=== PATIENT | male | born 1955 | race American Indian/Alaskan Native ===

== ENCOUNTER 2016-07-21 13:26 | Emergency (ER) | payer MEDICAID ==
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
[2016-07-21] MEDS ORDERED: NORCO 5/325 PO ONE (19:27)
[2016-07-21 19:56] VITALS: BP 173/86
== END 2016-07-21 19:55 | disposition home or self-care (01) ==
LOC: ED 13:26
DX: K02.9 Dental caries, unspecified (principal); K05.20 Aggressive periodontitis, unspecified; G43.909 Migraine, unspecified, not intractable, without status migrainosus; F17.200 Nicotine dependence, unspecified, uncomplicated
CPT/HCPCS: 99282

== ENCOUNTER 2018-03-03 13:42 | Inpatient (IN) | payer MEDICAID ==
[2018-03-03 14:45] LABS: Basophils % (Auto) 0.6 % (0.0-1.8); Eosinophils # (Auto) 0.1 K/mm3 (0.0-0.4); Eosinophils % (Auto) 1.4 % (0.0-4.3); Hemoglobin 15.5 gm/dl (11.8-15.2); Lymphocytes # (Auto) 1.9 K/mm3 (1.2-5.4); Lymphocytes % (Auto) 38.6 % (13.4-35.0); Mean Corpuscular HGB Conc 33 % (32-34); Mean Corpuscular Volume 89 fl (84-94); Monocytes # (Auto) 0.4 K/mm3 (0.0-0.8); Monocytes % (Auto) 7.5 % (0.0-7.3); Platelet Count 206 K/mm3 (140-440); Red Blood Count 5.28 M/mm3 (3.65-5.03); Red Cell Distribution Width 15.4 % (13.2-15.2)
[2018-03-03] MEDS ORDERED: ZOFRAN IV ONE (15:50)
[2018-03-03] MEDS ORDERED: ASPIRIN PO ONE (15:50)
[2018-03-03] MEDS ORDERED: MORPHINE IV ONE (15:50)
[2018-03-03 16:14] LABS: BUN/Creatinine Ratio 15; Blood Urea Nitrogen 16 mg/dL (9-20); Calcium 8.6 mg/dL (8.4-10.2); Hemolysis Index 19
[2018-03-03] MEDS ORDERED: LASIX IV ONE (17:06)
--- NOTE | 2018-03-03 17:19 | XRay Report ---
FINAL REPORT EXAM: XR CHEST 1V AP HISTORY: cp, sob, hx of chf TECHNIQUE: upright single view chest PRIORS: Comparison is dated December 31, 2017 FINDINGS: Cardiac and mediastinal contours are unremarkable. No focal pulmonary infiltrate is identified. No pleural fluid collection seen. Pulmonary vasculature is unremarkable. IMPRESSION: Negative single-view chest
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
--- NOTE | 2018-03-03 17:54 | History and Physical Report ---
History of Present Illness Chief complaint: I have chest pain History of present illness: 63 YO Male with Systolic CHF(EF 10%), HTN, Obesity, Migraine GARCÍA, BPH presents to ED for evaluation. Pt states that he has experienced pain in his chest for the past 2 days with worsening symptoms since onset. Pt states that pain is 8/10, sharp, substernal, constant, improved with nitro, not worsened with exertion, not relieved with rest. Pt acknowledges Orthopnea/PND, shortness of breath, and decreased exercise tolerance. Pt seen and evaluated in ED and found to have symptoms consistent with ACS as well as CHF Decompensation. Pt denies fever, chills, palpitations, NVD, Syncope, Trauma, prolonged travel/immobility, unilat eral leg swelling, calf pain, individual/family history of DVT/PE, unintentional weight loss, night sweats, productive cough, recent ill contacts, or skin rash. Pt admitted to telemetry. Cardiology team consulted in ED. Past History Past Medical History: heart failure, hypertension, migraines Past Surgical History: hernia repair, bowel surgery Social history: single Family history: hypertension Medications and Allergies Allergies Allergy/AdvReac Type Severity Reaction Status Date / Time No Known Allergies Allergy Verified 01/09/14 03:24 Home Medications Medication Instructions Recorded Confirmed Last Taken Type Acetaminophen/Codeine [Tylenol 1 tab PO Q8H PRN #14 tablet 09/14/17 12/31/17 Unknown Rx /Codeine # 3 tab] Benzocaine [Orajel Liquid 20%] 1 applic MM Q6H PRN bottle 09/14/17 12/31/17 Unknown Rx Chlorhexidine Mouthwash [Peridex] 118 ml MM BID bottle 09/14/17 12/31/17 Unknown Rx Famotidine [Pepcid] 20 mg PO BID #60 tablet 09/14/17 12/31/17 Unknown Rx HYDROcodone/APAP 7.5-325 [[place] 1 each PO Q4-6H PRN #14 tablet 09/14/17 12/31/17 Unknown Rx 7.5-325 mg TAB] Lisinopril [Zestril TAB] 2.5 mg PO QDAY #30 tablet 09/14/17 12/31/17 Unknown Rx Promethazine [Phenergan TAB] 25 mg PO Q6H PRN tablet 09/14/17 12/31/17 Unknown Rx Tamsulosin [Flomax] 0.4 mg PO QDAY #30 capsule 09/14/17 12/31/17 Unknown Rx Aspirin [Aspirin TAB] 325 mg PO QDAY #30 tablet 01/03/18 Unknown Rx AtorvaSTATin [Lipitor] 40 mg PO QHS #30 tablet 01/03/18 Unknown Rx Carvedilol [Coreg] 3.125 mg PO BID #60 tablet 01/03/18 Unknown Rx Furosemide [Lasix TAB] 40 mg PO QDAY #30 tablet 01/03/18 Unknown Rx Review of Systems Constitutional: no weight loss, no weight gain, no fever, no chills Ears, nose, mouth and throat: no ear pain, no ear discharge, no tinnitis, no decreased hearing, no nose pain Cardiovascular: chest pain, orthopnea, dyspnea on exertion, paroxysmal nocturnal dyspnea, decreased exercise tolerance, no palpitations Respiratory: no cough, no excessive sputum, no hemoptysis, no shortness of breath Gastrointestinal: no nausea, no vomiting, no constipation Genitourinary Male: no hematuria, no flank pain, no discharge, no urinary frequency, no urinary hesitancy, no nocturia Rectal: no pain, no incontinence, no bleeding Musculoskeletal: no neck stiffness, no neck pain, no shooting arm pain, no low back pain, no shooting leg pain Integumentary: no rash, no pruritis, no redness, no sores, no wounds Neurological: no transient paralysis, no paralysis, no weakness, no parathesias, no numbness Psychiatric: no anxiety, no memory loss, no change in sleep habits, no sleep disturbances, no hypersomnia, no change in libido Endocrine: no cold intolerance, no heat intolerance, no polyphagia, no excessive thirst, no polyuria, no nocturia Hematologic/Lymphatic: no easy bruising, no easy bleeding, no lymphadenopathy, no lymphedema Allergic/Immunologic: no urticaria, no allergic rhinitis, no wheezing, no persistent infections, no anaphylaxis, no angioedema Exam - Constitutional Vitals: Temp Pulse Resp BP Pulse Ox 97.8 F 75 18 133/93 96 03/03/18 17:31 03/03/18 17:31 03/03/18 17:33 03/03/18 17:31 03/03/18 17:33 General appearance: Present: mild distress, obese - EENT Eyes: Present: PERRL ENT: hearing intact, clear oral mucosa - Neck Neck: Present: supple, normal ROM - Respiratory Respiratory effort: normal Respiratory: bilateral: CTA - Cardiovascular Heart Sounds: Present: S1 & S2. Absent: rub, click - Extremities Extremities: pulses symmetrical, No edema Peripheral Pulses: within normal limits - Abdominal General gastrointestinal: Present: soft, non-tender, non-distended, normal bowel sounds Male genitourinary: Present: normal - Integumentary Integumentary: Present: clear, warm, dry - Musculoskeletal Musculoskeletal: gait normal, strength equal bilaterally - Psychiatric Psychiatric: appropriate mood/affect, intact judgment & insight - Neurologic Neurologic: CNII-XII intact, moves all extremities Results - Labs CBC & Chem 7: 03/03/18 14:32 03/03/18 14:32 Labs: Abnormal lab results 03/03/18 03/03/18 Range/Units 14:32 14:32 RBC 5.28 H (3.65-5.03) M/mm3 Hgb 15.5 H (11.8-15.2) gm/dl Hct 47.0 H (35.5-45.6) % RDW 15.4 H (13.2-15.2) % Lymph % (Auto) 38.6 H (13.4-35.0) % [place] % (Auto) 7.5 H (0.0-7.3) % Chloride 107.9 H (98-107) mmol/L Carbon Dioxide 20 L (22-30) mmol/L Glucose 130 H (75-100) mg/dL Assessment and Plan - Patient Problems (1) CHF (congestive heart failure) Current Visit: Yes Status: Acute Qualifiers: Heart failure chronicity: acute Plan to address problem: Admit to telemetry: Cardiology consulted in ED, Strict I/O, daily weight, monitor uop q shift, BNP, d dimer, chest x ray, (2) ACS (acute coronary syndrome) Current Visit: No Status: Acute Plan to address problem: Admit to telemetry, serial cardiac enzymes, ekg, telemetry, morphine, supplemental oxygen, nitro, aspirin (3) Migraine headache Current Visit: No Status: Acute Qualifiers: Intractability: not intractable Plan to address problem: pain control, supportive care. (4) DVT prophylaxis Current Visit: No Status: Acute Plan to address problem: SCD to BLE while in bed.
[2018-03-03] MEDS ORDERED: ZOFRAN IV PRN (18:07)
[2018-03-03] MEDS ORDERED: MORPHINE IV PRN (18:07)
[2018-03-03] MEDS ORDERED: PROVENTIL IH PRN (18:07)
[2018-03-03] MEDS ORDERED: SODIUM CHLORIDE FLUSH SYRINGE 10 ML IV PRN (18:07)
[2018-03-03] MEDS: SODIUM CHLORIDE FLUSH SYRINGE 10 ML IV SCH (21:44)
[2018-03-03] MEDS: PEPCID PO SCH (21:44)
[2018-03-04 05:49] LABS: BUN/Creatinine Ratio 15; Blood Urea Nitrogen 16 mg/dL (9-20); Calcium 8.3 mg/dL (8.4-10.2); Hemolysis Index 32
[2018-03-04] MEDS: SODIUM CHLORIDE FLUSH SYRINGE 10 ML IV SCH ×2 (09:59→22:58)
[2018-03-04] MEDS: PEPCID PO SCH ×2 (09:59→22:57)
--- NOTE | 2018-03-04 11:11 | Progress Note ---
Assessment and Plan Assessment and plan: Acute on chronic systolic heart failure exacerbation. Cardiology consultation. Continue Lasix daily. Follow serial chest x-ray. Check BNP. Follow-up echocardiogram. Acute coronary syndrome/CP. Await cardiology recommendations for ischemic evaluation. Continue aspirin. Troponins are negative 3. Hypertension. Resume antihypertensive medications. Elevated d-dimer. Check CTA of chest. History Migraine headache. History of BPH. History Interval history: 63 YO Male with Systolic CHF(EF 10%), HTN, Obesity, Migraine GARCÍA, BPH presents to ED for evaluation. Pt states that he has experienced pain in his chest for the past 2 days with worsening symptoms since onset. Pt states that pain is 8/10, sharp, substernal, constant, improved with nitro, not worsened with exertion, not relieved with rest. Pt acknowledges Orthopnea/PND, shortness of breath, and decreased exercise tolerance. Pt seen and evaluated in ED and found to have symptoms consistent with ACS as well as CHF Decompensation No new issues overnight. Hospitalist Physical - Constitutional Vitals: Temp Pulse Resp BP Pulse Ox 98.1 F 71 18 117/86 99 03/04/18 08:57 03/04/18 08:57 03/04/18 08:57 03/04/18 08:57 03/04/18 09:39 General appearance: Present: no acute distress, obese - EENT Eyes: Present: PERRL, EOM intact ENT: hearing intact, clear oral mucosa, dentition normal - Neck Neck: Present: supple, normal ROM - Respiratory Respiratory effort: normal Respiratory: bilateral: CTA - Cardiovascular Rhythm: regular Heart Sounds: Present: S1 & S2. Absent: gallop, rub - Extremities Extremities: no ischemia, No edema, Full ROM - Abdominal General gastrointestinal: soft, non-tender, non-distended, normal bowel sounds - Integumentary Integumentary: Present: clear, warm, dry - Neurologic Neurologic: CNII-XII intact, moves all extremities Results - Labs CBC & Chem 7: 03/03/18 14:32 03/04/18 04:50 Labs: Laboratory Last Values WBC 4.9 K/mm3 (4.5-11.0) 03/03/18 14:32 RBC 5.28 M/mm3 (3.65-5.03) H 03/03/18 14:32 Hgb 15.5 gm/dl (11.8-15.2) H 03/03/18 14:32 Hct 47.0 % (35.5-45.6) H 03/03/18 14:32 MCV 89 fl (84-94) 03/03/18 14:32 MCH 29 pg (28-32) 03/03/18 14:32 MCHC 33 % (32-34) 03/03/18 14:32 RDW 15.4 % (13.2-15.2) H 03/03/18 14:32 Plt Count 206 K/mm3 (140-440) 03/03/18 14:32 Lymph % (Auto) 38.6 % (13.4-35.0) H 03/03/18 14:32 [place] % (Auto) 7.5 % (0.0-7.3) H 03/03/18 14:32 Eos % (Auto) 1.4 % (0.0-4.3) 03/03/18 14:32 Baso % (Auto) 0.6 % (0.0-1.8) 03/03/18 14:32 Lymph # 1.9 K/mm3 (1.2-5.4) 03/03/18 14:32 [place] # 0.4 K/mm3 (0.0-0.8) 03/03/18 14:32 Eos # 0.1 K/mm3 (0.0-0.4) 03/03/18 14:32 Baso # 0.0 K/mm3 (0.0-0.1) 03/03/18 14:32 Seg Neutrophils % 51.9 % (40.0-70.0) 03/03/18 14:32 Seg Neutrophils # 2.5 K/mm3 (1.8-7.7) 03/03/18 14:32 D-Dimer 327.62 ng/mlDDU (0-234) H 03/03/18 18:02 Sodium 141 mmol/L (137-145) 03/04/18 04:50 Potassium 4.2 mmol/L (3.6-5.0) 03/04/18 04:50 Chloride 107.2 mmol/L (98-107) H 03/04/18 04:50 Carbon Dioxide 23 mmol/L (22-30) 03/04/18 04:50 Anion Gap 15 mmol/L 03/04/18 04:50 BUN 16 mg/dL (9-20) 03/04/18 04:50 Creatinine 1.1 mg/dL (0.8-1.5) 03/04/18 04:50 Estimated GFR > 60 ml/min 03/04/18 04:50 BUN/Creatinine Ratio 15 % 03/04/18 04:50 Glucose 117 mg/dL (75-100) H 03/04/18 04:50 Calcium 8.3 mg/dL (8.4-10.2) L 03/04/18 04:50 Troponin T < 0.010 ng/mL (0.00-0.029) 03/03/18 20:20 NT-Pro-B Natriuret Pep 5377 pg/mL (0-900) H 03/03/18 17:18
--- NOTE | 2018-03-04 13:40 | Consultation ---
History of Present Illness Consult date: 03/04/18 Consult reason: chest pain History of present illness: 63-year-old man who presents to the hospital with complaints of chest pressure. 2 months ago, he underwent extensive cardiac ischemic workup including a cardiac catheterization. Cardiac catheterization, he was found with a severe dilated nonischemic cardiomyopathy, left ventricular ejection fraction reported at 10% on left ventricle angiography, and a 20-30% on echocardiography. There was small vessel branch disease of the diagonal branch of the LAD, recommended for medical therapy. Following his discharge 2 months ago, the patient has been poorly compliant with outpatient follow-up visits, and admits to dietary salt indiscretion. ECG on this presentation is normal sinus rhythm, left ventricular hypertrophy with nonspecific ST and T-wave abnormalities. Chest x-ray reveals no evidence of significant interstitial edema. Past History Past Medical History: heart failure, hypertension, migraines Past Surgical History: hernia repair, bowel surgery Social history: single Family history: hypertension Medications and Allergies Allergies Allergy/AdvReac Type Severity Reaction Status Date / Time No Known Allergies Allergy Verified 01/09/14 03:24 Home Medications Medication Instructions Recorded Confirmed Last Taken Type Acetaminophen/Codeine [Tylenol 1 tab PO Q8H PRN #14 tablet 09/14/17 03/03/18 Unknown Rx /Codeine # 3 tab] Benzocaine [Orajel Liquid 20%] 1 applic MM Q6H PRN bottle 09/14/17 03/03/18 Unknown Rx Chlorhexidine Mouthwash [Peridex] 118 ml MM BID bottle 09/14/17 03/03/18 Unknown Rx Famotidine [Pepcid] 20 mg PO BID #60 tablet 09/14/17 03/03/18 Unknown Rx HYDROcodone/APAP 7.5-325 [[place] 1 each PO Q4-6H PRN #14 tablet 09/14/17 03/03/18 Unknown Rx 7.5-325 mg TAB] Lisinopril [Zestril TAB] 2.5 mg PO QDAY #30 tablet 09/14/17 03/03/18 Unknown Rx Promethazine [Phenergan TAB] 25 mg PO Q6H PRN tablet 09/14/17 03/03/18 Unknown Rx Tamsulosin [Flomax] 0.4 mg PO QDAY #30 capsule 09/14/17 03/03/18 Unknown Rx Aspirin [Aspirin TAB] 325 mg PO QDAY #30 tablet 01/03/18 03/03/18 Unknown Rx AtorvaSTATin [Lipitor] 40 mg PO QHS #30 tablet 01/03/18 03/03/18 Unknown Rx Carvedilol [Coreg] 3.125 mg PO BID #60 tablet 01/03/18 03/03/18 Unknown Rx Furosemide [Lasix TAB] 40 mg PO QDAY #30 tablet 01/03/18 03/03/18 Unknown Rx Active Meds: Active Medications Acetaminophen (Tylenol) 650 mg PO Q4H PRN PRN Reason: Pain MILD(1-3)/Fever >100.5/GARCÍA Albuterol (Proventil) 2.5 mg IH Q4HRT PRN PRN Reason: Shortness Of Breath Famotidine (Pepcid) [address] [facility] Last Admin: 03/04/18 09:59 Dose: 20 mg Documented by: Morphine Sulfate (Morphine) 2 mg IV Q4H PRN PRN Reason: Pain, Moderate (4-6) Ondansetron HCl (Zofran) 4 mg IV Q8H PRN PRN Reason: Nausea And Vomiting Sodium Chloride (Sodium Chloride Flush Syringe 10 Ml) [address] [facility] Last Admin: 03/04/18 09:59 Dose: 10 ml Documented by: Sodium Chloride (Sodium Chloride Flush Syringe 10 Ml) 10 ml IV PRN PRN PRN Reason: LINE FLUSH Review of Systems Cardiovascular: chest pain, orthopnea, edema, shortness of breath, no palpitations, no rapid/irregular heart beat, no syncope, no lightheadedness Physical Examination Vital Signs Temp Pulse Resp BP Pulse Ox 98.0 F 80 20 135/90 99 03/03/18 14:06 03/03/18 14:06 03/03/18 14:06 03/03/18 14:06 03/03/18 14:06 General appearance: no acute distress HEENT: Positive: PERRL Neck: Positive: neck supple Cardiac: Positive: Reg Rate and Rhythm Lungs: Positive: Decreased Breath Sounds Neuro: Positive: Grossly Intact Abdomen: Positive: Soft Male genitourinary: Positive: deferred Skin: Positive: Clear Extremities: Present: +1 Edema Results 03/03/18 14:32 03/04/18 04:50 CBC 03/03/18 Range/Units 14:32 WBC 4.9 (4.5-11.0) K/mm3 RBC 5.28 H (3.65-5.03) M/mm3 Hgb 15.5 H (11.8-15.2) gm/dl Hct 47.0 H (35.5-45.6) % Plt Count 206 (140-440) K/mm3 Lymph # 1.9 (1.2-5.4) K/mm3 [place] # 0.4 (0.0-0.8) K/mm3 Eos # 0.1 (0.0-0.4) K/mm3 Baso # 0.0 (0.0-0.1) K/mm3 Comprehensive Metabolic Panel 03/03/18 03/04/18 Range/Units 14:32 04:50 Sodium 141 141 (137-145) mmol/L Potassium 3.7 4.2 (3.6-5.0) mmol/L Chloride 107.9 H 107.2 H (98-107) mmol/L Carbon Dioxide 20 L 23 (22-30) mmol/L BUN 16 16 (9-20) mg/dL Creatinine 1.1 1.1 (0.8-1.5) mg/dL Glucose 130 H 117 H (75-100) mg/dL Calcium 8.6 8.3 L (8.4-10.2) mg/dL EKG interpretations - Telemetry EKG Rhythm: Sinus Rhythm Assessment and Plan - Patient Problems (1) Acute on chronic systolic (congestive) heart failure Current Visit: No Status: Acute Plan to address problem: Patient has a severe nonischemic cardiomyopathy, poor outpatient compliance, needs aggressive treatment for acute on chronic systolic heart failure. In addition to guidelines directed medical therapy, including afterload reducing agents, beta blockers and diuretics, he may benefit from a course of intravenous inotropic therapy.
--- NOTE | 2018-03-04 14:54 | Cat Scan Report ---
FINAL REPORT PROCEDURE: CT ANGIO CHEST TECHNIQUE: Computerized tomographic angiography of the chest was performed after the IV injection of iodinated nonionic contrast including image processing. The image data was postprocessed using 2-dim ensional multiplanar reformatted (MPR) and 3-dimensional (MIP and/or volume rendered) techniques. HISTORY: elevated d-dimer with CP COMPARISON: No prior studies are available for comparison. FINDINGS: Pulmonary outflow tract, right and left main pulmonary arteries and their proximal branches: Clear, n o filling defects seen to suggest pulmonary embolus. Pericardium: No evidence of pericardial effusion. Thoracic aorta: No evidence of aneurysmal dilatation or dissection. Coronary arteries: Are partially calcified indicating atherosclerotic disease. Mediastinum and hilar regions: Nonspecific subcentimeter lymph nodes are visualized. No pathologicall y enlarged lymph nodes or masses are identified. Lung [place]: Small to moderate size right pleural effusion and minimal left pleural effusion are visu alized. Adjacent to the effusions there is a small amount of patchy density suggesting atelectasis. N o dense consolidation is seen. No masses are detected. Minimal scattered emphysematous changes are pr esent. Upper abdomen: Low-density nodule projects from the upper 3rd of the renal cortex of the right kidney appears represent renal cortical cyst. There is contrast seen refluxing into the inferior vena cava and intrahepatic veins which is nonspecific although can be seen with congestive heart failure and tr icuspid insufficiency. Other: No acute bony abnormalities are seen. IMPRESSION: No evidence of pulmonary embolus. Small to moderate right pleural effusion, minimal left pleural effusion. Basilar atelectasis suspecte d. Contrast seen refluxing into the inferior vena cava and intrahepatic veins as described. This is nons pecific although can be seen with congestive heart failure and tricuspid insufficiency.
[2018-03-04] MEDS: MILRINONE-D5W 20 MG/100 ML 20 MG/100 ML BAG IV SCH ×2 (15:42→23:58)
[2018-03-04] MEDS: ZESTRIL PO SCH (15:48)
[2018-03-04] MEDS: IMDUR PO SCH (15:49)
[2018-03-04] MEDS: ALDACTONE PO SCH (15:49)
[2018-03-04] MEDS: HALFPRIN EC PO SCH (15:49)
[2018-03-04] MEDS: LASIX IV SCH (17:21)
[2018-03-04] MEDS: COREG PO SCH (22:57)
[2018-03-05 05:10] LABS: Basophils % (Auto) 0.5 % (0.0-1.8); Eosinophils # (Auto) 0.1 K/mm3 (0.0-0.4); Eosinophils % (Auto) 2.2 % (0.0-4.3); Hematocrit 44.6 % (35.5-45.6); Hemoglobin 14.7 gm/dl (11.8-15.2); Lymphocytes # (Auto) 1.6 K/mm3 (1.2-5.4); Lymphocytes % (Auto) 40.3 % (13.4-35.0); Mean Corpuscular HGB Conc 33 % (32-34); Mean Corpuscular Volume 90 fl (84-94); Monocytes # (Auto) 0.4 K/mm3 (0.0-0.8); Monocytes % (Auto) 9.5 % (0.0-7.3); Platelet Count 188 K/mm3 (140-440); Red Blood Count 4.98 M/mm3 (3.65-5.03); Red Cell Distribution Width 15.1 % (13.2-15.2)
[2018-03-05 05:21] LABS: BUN/Creatinine Ratio 13; Blood Urea Nitrogen 14 mg/dL (9-20); Calcium 8.5 mg/dL (8.4-10.2); Hemolysis Index 14
[2018-03-05] MEDS: LASIX IV SCH ×2 (05:27→20:37)
[2018-03-05] MEDS: MILRINONE-D5W 20 MG/100 ML 20 MG/100 ML BAG IV SCH ×2 (10:11→21:37)
[2018-03-05] MEDS: HALFPRIN EC PO SCH (10:27)
[2018-03-05] MEDS: ALDACTONE PO SCH (10:28)
[2018-03-05] MEDS: COREG PO SCH ×2 (10:28→21:36)
[2018-03-05] MEDS: IMDUR PO SCH (10:28)
[2018-03-05] MEDS: PEPCID PO SCH ×2 (10:29→21:36)
[2018-03-05] MEDS: ZESTRIL PO SCH (10:34)
[2018-03-05] MEDS: SODIUM CHLORIDE FLUSH SYRINGE 10 ML IV SCH ×2 (10:38→21:37)
--- NOTE | 2018-03-05 11:34 | Progress Note ---
Assessment and Plan Assessment and plan: Acute on chronic systolic heart failure exacerbation. Cardiology following. Continue milrinone drip and Lasix daily. Also, continue Coreg, isosorbide and Zestril. Follow serial chest x-ray. Follow-up echocardiogram. Nonischemic cardiomyopathy. As above. Hypertension. Continue antihypertensive medications. Elevated d-dimer. CTA of chest negative. History Migraine headache. History of BPH. History Interval history: 63 YO Male with Systolic CHF(EF 10%), HTN, Obesity, Migraine GARCÍA, BPH presents to ED for evaluation. Pt states that he has experienced pain in his chest for the past 2 days with worsening symptoms since onset. Pt states that pain is 8/10, sharp, substernal, constant, improved with nitro, not worsened with exertion, not relieved with rest. Pt acknowledges Orthopnea/PND, shortness of breath, and decreased exercise tolerance. Pt seen and evaluated in ED and found to have symptoms consistent with ACS as well as CHF Decompensation No new issues overnight. Hospitalist Physical - Constitutional Vitals: Temp Pulse Resp BP Pulse Ox 97.9 F 72 16 105/48 95 03/05/18 07:22 03/05/18 10:34 03/05/18 08:44 03/05/18 07:22 03/05/18 08:17 General appearance: Present: no acute distress - EENT Eyes: Present: PERRL, EOM intact ENT: hearing intact, clear oral mucosa, dentition normal - Neck Neck: Present: supple, normal ROM - Respiratory Respiratory effort: normal Respiratory: bilateral: CTA - Cardiovascular Rhythm: regular Heart Sounds: Present: S1 & S2. Absent: gallop, rub - Extremities Extremities: no ischemia, No edema, Full ROM - Abdominal General gastrointestinal: soft, non-tender, non-distended, normal bowel sounds - Integumentary Integumentary: Present: clear, warm, dry - Neurologic Neurologic: CNII-XII intact, moves all extremities Results - Labs CBC & Chem 7: 03/05/18 04:48 03/05/18 04:48 Labs: Laboratory Last Values WBC 4.0 K/mm3 (4.5-11.0) L 03/05/18 04:48 RBC 4.98 M/mm3 (3.65-5.03) 03/05/18 04:48 Hgb 14.7 gm/dl (11.8-15.2) 03/05/18 04:48 Hct 44.6 % (35.5-45.6) 03/05/18 04:48 MCV 90 fl (84-94) 03/05/18 04:48 MCH 30 pg (28-32) 03/05/18 04:48 MCHC 33 % (32-34) 03/05/18 04:48 RDW 15.1 % (13.2-15.2) 03/05/18 04:48 Plt Count 188 K/mm3 (140-440) 03/05/18 04:48 Lymph % (Auto) 40.3 % (13.4-35.0) H 03/05/18 04:48 [place] % (Auto) 9.5 % (0.0-7.3) H 03/05/18 04:48 Eos % (Auto) 2.2 % (0.0-4.3) 03/05/18 04:48 Baso % (Auto) 0.5 % (0.0-1.8) 03/05/18 04:48 Lymph # 1.6 K/mm3 (1.2-5.4) 03/05/18 04:48 [place] # 0.4 K/mm3 (0.0-0.8) 03/05/18 04:48 Eos # 0.1 K/mm3 (0.0-0.4) 03/05/18 04:48 Baso # 0.0 K/mm3 (0.0-0.1) 03/05/18 04:48 Seg Neutrophils % 47.5 % (40.0-70.0) 03/05/18 04:48 Seg Neutrophils # 1.9 K/mm3 (1.8-7.7) 03/05/18 04:48 D-Dimer 327.62 ng/mlDDU (0-234) H 03/03/18 18:02 Sodium 137 mmol/L (137-145) 03/05/18 04:48 Potassium 3.4 mmol/L (3.6-5.0) L 03/05/18 04:48 Chloride 101.7 mmol/L (98-107) 03/05/18 04:48 Carbon Dioxide 28 mmol/L (22-30) 03/05/18 04:48 Anion Gap 11 mmol/L 03/05/18 04:48 BUN 14 mg/dL (9-20) 03/05/18 04:48 Creatinine 1.1 mg/dL (0.8-1.5) 03/05/18 04:48 Estimated GFR > 60 ml/min 03/05/18 04:48 BUN/Creatinine Ratio 13 % 03/05/18 04:48 Glucose 93 mg/dL (75-100) 03/05/18 04:48 Calcium 8.5 mg/dL (8.4-10.2) 03/05/18 04:48 Troponin T < 0.010 ng/mL (0.00-0.029) 03/03/18 20:20 NT-Pro-B Natriuret Pep 5377 pg/mL (0-900) H 03/03/18 17:18
[2018-03-05] MEDS ORDERED: AFLURIA QUAD 2018-2019 SYRINGE IM ONE (12:00)
[2018-03-05] MEDS ORDERED: PNEUMOVAX 23 IM ONE (12:00)
--- NOTE | 2018-03-05 13:32 | Progress Note ---
Assessment and Plan - Patient Problems (1) Acute on chronic systolic (congestive) heart failure Current Visit: No Status: Acute Plan to address problem: Patient has a severe nonischemic cardiomyopathy, poor outpatient compliance, needs aggressive treatment for acute on chronic systolic heart failure. Symptoms improved with guideline directed medical therapy, including afterload reducing agents, beta blockers and diuretics, and a course of intravenous inotropic therapy. Subjective Date of service: 03/05/18 Interval history: Patient looks and feels better, no new cardiac complaints. Objective Vital Signs Temp Pulse Pulse Resp BP Pulse Ox 03/05/18 10:34 72 03/05/18 10:28 65 03/05/18 08:44 68 16 03/05/18 08:17 95 03/05/18 08:00 63 03/05/18 07:22 97.9 F 68 18 105/48 93 03/05/18 04:54 98.0 F 63 18 99/64 94 03/04/18 23:30 97.0 F L 73 20 105/54 94 03/04/18 22:57 69 132/83 03/04/18 22:00 94 03/04/18 19:29 98.0 F 69 20 132/83 98 03/04/18 16:49 68 18 131/83 98 03/04/18 16:47 97.5 F L 03/04/18 15:49 75 135/96 03/04/18 15:48 75 135/96 - Physical Examination General: No Apparent Distress HEENT: Positive: PERRL Neck: Positive: neck supple Cardiac: Positive: Reg Rate and Rhythm Lungs: Positive: Decreased Breath Sounds Neuro: Positive: Grossly Intact Abdomen: Positive: Soft Skin: Positive: Clear Extremities: Present: +1 Edema - Labs and Meds CBC 03/05/18 Range/Units 04:48 WBC 4.0 L (4.5-11.0) K/mm3 RBC 4.98 (3.65-5.03) M/mm3 Hgb 14.7 (11.8-15.2) gm/dl Hct 44.6 (35.5-45.6) % Plt Count 188 (140-440) K/mm3 Lymph # 1.6 (1.2-5.4) K/mm3 [place] # 0.4 (0.0-0.8) K/mm3 Eos # 0.1 (0.0-0.4) K/mm3 Baso # 0.0 (0.0-0.1) K/mm3 Comprehensive Metabolic Panel 03/05/18 Range/Units 04:48 Sodium 137 (137-145) mmol/L Potassium 3.4 L (3.6-5.0) mmol/L Chloride 101.7 (98-107) mmol/L Carbon Dioxide 28 (22-30) mmol/L BUN 14 (9-20) mg/dL Creatinine 1.1 (0.8-1.5) mg/dL Glucose 93 (75-100) mg/dL Calcium 8.5 (8.4-10.2) mg/dL
[2018-03-06] MEDS: TYLENOL PO PRN ×2 (05:58→15:15)
[2018-03-06] MEDS: LASIX IV SCH ×2 (05:58→18:01)
[2018-03-06] MEDS: MILRINONE-D5W 20 MG/100 ML 20 MG/100 ML BAG IV SCH (06:10)
[2018-03-06 07:18] LABS: Basophils % (Auto) 0.4 % (0.0-1.8); Eosinophils # (Auto) 0.1 K/mm3 (0.0-0.4); Hematocrit 44.3 % (35.5-45.6); Hemoglobin 14.4 gm/dl (11.8-15.2); Lymphocytes # (Auto) 1.3 K/mm3 (1.2-5.4); Lymphocytes % (Auto) 27.1 % (13.4-35.0); Mean Corpuscular HGB Conc 33 % (32-34); Mean Corpuscular Volume 89 fl (84-94); Monocytes # (Auto) 0.6 K/mm3 (0.0-0.8); Monocytes % (Auto) 11.4 % (0.0-7.3); Platelet Count 213 K/mm3 (140-440); Red Blood Count 4.97 M/mm3 (3.65-5.03); Red Cell Distribution Width 14.8 % (13.2-15.2)
[2018-03-06 07:20] LABS: BUN/Creatinine Ratio 12; Blood Urea Nitrogen 12 mg/dL (9-20); Calcium 8.5 mg/dL (8.4-10.2); Hemolysis Index 22
--- NOTE | 2018-03-06 09:41 | Progress Note ---
Assessment and Plan Assessment and plan: Acute on chronic systolic heart failure exacerbation. Cardiology following. Continue milrinone drip and Lasix daily. Also, continue Coreg, isosorbide and Zestril. Follow serial chest x-ray. Follow-up echocardiogram. Nonischemic cardiomyopathy. As above. Hypertension. Continue antihypertensive medications. Elevated d-dimer. CTA of chest negative. History Migraine headache. History of BPH. History Interval history: 63 YO Male with Systolic CHF(EF 10%), HTN, Obesity, Migraine GARCÍA, BPH presents to ED for evaluation. Pt states that he has experienced pain in his chest for the past 2 days with worsening symptoms since onset. Pt states that pain is 8/10, sharp, substernal, constant, improved with nitro, not worsened with exertion, not relieved with rest. Pt acknowledges Orthopnea/PND, shortness of breath, and decreased exercise tolerance. Pt seen and evaluated in ED and found to have symptoms consistent with ACS as well as CHF Decompensation. The patient is seen by cardiology in consultation who recommended milrinone drip which the patient h as been on for 48 hours. No new issues overnight. Hospitalist Physical - Constitutional Vitals: Temp Pulse Resp BP Pulse Ox 98.1 F 72 18 113/60 97 03/06/18 08:39 03/06/18 08:39 03/06/18 08:39 03/06/18 08:39 03/06/18 08:39 General appearance: Present: no acute distress - EENT Eyes: Present: PERRL, EOM intact ENT: hearing intact, clear oral mucosa, dentition normal - Neck Neck: Present: supple, normal ROM - Respiratory Respiratory effort: normal Respiratory: bilateral: CTA - Cardiovascular Rhythm: regular Heart Sounds: Present: S1 & S2. Absent: gallop, rub - Extremities Extremities: no ischemia, No edema, Full ROM - Abdominal General gastrointestinal: soft, non-tender, non-distended, normal bowel sounds - Integumentary Integumentary: Present: clear, warm, dry - Neurologic Neurologic: CNII-XII intact, moves all extremities Results - Labs CBC & Chem 7: 03/06/18 05:35 03/06/18 05:35 Labs: Laboratory Last Values WBC 4.9 K/mm3 (4.5-11.0) 03/06/18 05:35 RBC 4.97 M/mm3 (3.65-5.03) 03/06/18 05:35 Hgb 14.4 gm/dl (11.8-15.2) 03/06/18 05:35 Hct 44.3 % (35.5-45.6) 03/06/18 05:35 MCV 89 fl (84-94) 03/06/18 05:35 MCH 29 pg (28-32) 03/06/18 05:35 MCHC 33 % (32-34) 03/06/18 05:35 RDW 14.8 % (13.2-15.2) 03/06/18 05:35 Plt Count 213 K/mm3 (140-440) 03/06/18 05:35 Lymph % (Auto) 27.1 % (13.4-35.0) 03/06/18 05:35 [place] % (Auto) 11.4 % (0.0-7.3) H 03/06/18 05:35 Eos % (Auto) 3.0 % (0.0-4.3) 03/06/18 05:35 Baso % (Auto) 0.4 % (0.0-1.8) 03/06/18 05:35 Lymph # 1.3 K/mm3 (1.2-5.4) 03/06/18 05:35 [place] # 0.6 K/mm3 (0.0-0.8) 03/06/18 05:35 Eos # 0.1 K/mm3 (0.0-0.4) 03/06/18 05:35 Baso # 0.0 K/mm3 (0.0-0.1) 03/06/18 05:35 Seg Neutrophils % 58.1 % (40.0-70.0) 03/06/18 05:35 Seg Neutrophils # 2.8 K/mm3 (1.8-7.7) 03/06/18 05:35 D-Dimer 327.62 ng/mlDDU (0-234) H 03/03/18 18:02 Sodium 140 mmol/L (137-145) 03/06/18 05:35 Potassium 4.1 mmol/L (3.6-5.0) D 03/06/18 05:35 Chloride 105.3 mmol/L (98-107) 03/06/18 05:35 Carbon Dioxide 24 mmol/L (22-30) 03/06/18 05:35 Anion Gap 15 mmol/L 03/06/18 05:35 BUN 12 mg/dL (9-20) 03/06/18 05:35 Creatinine 1.0 mg/dL (0.8-1.5) 03/06/18 05:35 Estimated GFR > 60 ml/min 03/06/18 05:35 BUN/Creatinine Ratio 12 % 03/06/18 05:35 Glucose 86 mg/dL (75-100) 03/06/18 05:35 Calcium 8.5 mg/dL (8.4-10.2) 03/06/18 05:35 Troponin T < 0.010 ng/mL (0.00-0.029) 03/03/18 20:20 NT-Pro-B Natriuret Pep 5377 pg/mL (0-900) H 03/03/18 17:18
[2018-03-06] MEDS: ALDACTONE PO SCH (10:24)
[2018-03-06] MEDS: HALFPRIN EC PO SCH (10:24)
[2018-03-06] MEDS: ZESTRIL PO SCH (10:25)
[2018-03-06] MEDS: IMDUR PO SCH (10:25)
[2018-03-06] MEDS: PEPCID PO SCH ×2 (10:25→22:21)
[2018-03-06] MEDS: COREG PO SCH ×2 (10:25→22:21)
[2018-03-06] MEDS: SODIUM CHLORIDE FLUSH SYRINGE 10 ML IV SCH ×2 (10:25→22:21)
--- NOTE | 2018-03-06 11:02 | Progress Note ---
Addendum entered and electronically signed by HERLINDA BOYLE MD 03/06/18 14:41: Cardiac status stable, continue medical therapy for dilated nonischemic cardiomyopathy and chronic systolic heart failure. Original Note: Assessment and Plan Acute systolic heart failure s/t noncompliance chest CTA negative for PE Nonischemic cardiomyopathy 12/2017 [facility] findings: 1. Small vessel coronary artery disease. 2. Ejection fraction 10%. Recommendations: Dietary/fluid restriction. Continue aggressive medical therapy for small vessel coronary artery disease and non-ischemic cardiomyopathy. Subjective Date of service: 03/06/18 Interval history: Patient is resting in bed comfortably. IV milrinone continues. No events on telemetry. Objective Vital Signs Temp Pulse Resp BP Pulse Ox 03/06/18 08:39 98.1 F 72 18 113/60 97 03/06/18 04:04 98.6 F 77 20 129/90 95 03/06/18 00:00 74 03/05/18 23:13 98.7 F 67 18 113/57 100 03/05/18 21:36 73 115/63 03/05/18 20:17 97 03/05/18 20:03 98.8 F 73 18 115/63 97 03/05/18 16:00 74 03/05/18 15:11 98.6 F 69 20 110/69 96 - Physical Examination General: No Apparent Distress HEENT: Positive: PERRL Cardiac: Positive: Reg Rate and Rhythm Lungs: Positive: Decreased Breath Sounds Neuro: Positive: Grossly Intact Abdomen: Positive: Soft Extremities: Present: +1 Edema - Labs and Meds CBC 03/06/18 Range/Units 05:35 WBC 4.9 (4.5-11.0) K/mm3 RBC 4.97 (3.65-5.03) M/mm3 Hgb 14.4 (11.8-15.2) gm/dl Hct 44.3 (35.5-45.6) % Plt Count 213 (140-440) K/mm3 Lymph # 1.3 (1.2-5.4) K/mm3 [place] # 0.6 (0.0-0.8) K/mm3 Eos # 0.1 (0.0-0.4) K/mm3 Baso # 0.0 (0.0-0.1) K/mm3 Comprehensive Metabolic Panel 03/06/18 Range/Units 05:35 Sodium 140 (137-145) mmol/L Potassium 4.1 D (3.6-5.0) mmol/L Chloride 105.3 (98-107) mmol/L Carbon Dioxide 24 (22-30) mmol/L BUN 12 (9-20) mg/dL Creatinine 1.0 (0.8-1.5) mg/dL Glucose 86 (75-100) mg/dL Calcium 8.5 (8.4-10.2) mg/dL
[2018-03-07] MEDS: LASIX IV SCH ×2 (06:50→18:15)
[2018-03-07] MEDS: ZESTRIL PO SCH (09:30)
[2018-03-07] MEDS: IMDUR PO SCH (12:13)
[2018-03-07] MEDS: PEPCID PO SCH ×2 (12:14→22:50)
[2018-03-07] MEDS: COREG PO SCH ×2 (12:14→22:50)
[2018-03-07] MEDS: HALFPRIN EC PO SCH (12:14)
[2018-03-07] MEDS: ALDACTONE PO SCH (12:14)
[2018-03-07] MEDS: SODIUM CHLORIDE FLUSH SYRINGE 10 ML IV SCH ×2 (12:19→22:50)
--- NOTE | 2018-03-07 12:49 | Progress Note ---
Assessment and Plan - Patient Problems (1) Acute on chronic systolic (congestive) heart failure Current Visit: No Status: Acute Plan to address problem: Patient has a severe nonischemic cardiomyopathy, poor outpatient compliance, needs aggressive treatment for acute on chronic systolic heart failure. Symptoms improved with guideline directed medical therapy, including afterload reducing agents, beta blockers and diuretics, and a course of intravenous inotropic therapy. Subjective Date of service: 03/07/18 Interval history: Patient looks and feels better, no new cardiac complaints. Objective Vital Signs Temp Pulse Pulse Resp BP Pulse Ox 03/07/18 12:14 59 L 89/60 03/07/18 12:13 59 L 03/07/18 10:00 95 03/07/18 09:30 98/60 03/07/18 07:55 97.6 F 64 18 98/63 97 03/07/18 04:39 97.4 F L 63 16 138/93 96 03/07/18 00:00 63 03/06/18 23:04 98.7 F 63 14 117/71 94 03/06/18 22:21 60 98/63 03/06/18 22:00 68 03/06/18 20:54 97 03/06/18 19:58 98.2 F 60 16 98/63 96 03/06/18 17:34 98.2 F 70 18 102/71 96 03/06/18 13:47 98.3 F 72 16 102/54 98 - Physical Examination General: No Apparent Distress HEENT: Positive: PERRL Neck: Positive: neck supple Cardiac: Positive: Reg Rate and Rhythm Lungs: Positive: Decreased Breath Sounds Neuro: Positive: Grossly Intact Abdomen: Positive: Soft Skin: Positive: Clear Extremities: Present: +1 Edema
--- NOTE | 2018-03-07 16:15 | Progress Note ---
Assessment and Plan Assessment and plan: Acute on chronic systolic heart failure exacerbation. Cardiology following. Completed Milrinone drip. Also, continue Coreg, isosorbide and Zestril. Follow serial chest x-ray. Poss dc home tomorrow Nonischemic cardiomyopathy. As above. Hypertension. Continue antihypertensive medications. Elevated d-dimer. CTA of chest negative. History Migraine headache. History of BPH. Likely dc home tomorrow. History Interval history: Feels better, Less shortness of breath Hospitalist Physical - Physical exam Narrative exam: GEN: Not in acute distress, lying in bed HEENT: Normocephalic, atraumatic, Neck: supple, No JVD Lungs: Bilateral basal crackles. No wheeze Heart:S1 and S2 regular, no murmurs, rubs or gallop, Abd:soft, non tender, non distended, normal bowel sounds Ext: No edema, no clubbing or cyanosis Neuro: Awake,alert, oriented x 3, No focal signs Psych:Normal mood - Constitutional Vitals: Temp Pulse Resp BP Pulse Ox 98.2 F 63 18 111/73 97 03/07/18 12:57 03/07/18 12:57 03/07/18 12:57 03/07/18 12:57 03/07/18 12:57 General appearance: Present: no acute distress Results - Labs CBC & Chem 7: 03/06/18 05:35 03/06/18 05:35 Labs: Laboratory Last Values WBC 4.9 K/mm3 (4.5-11.0) 03/06/18 05:35 RBC 4.97 M/mm3 (3.65-5.03) 03/06/18 05:35 Hgb 14.4 gm/dl (11.8-15.2) 03/06/18 05:35 Hct 44.3 % (35.5-45.6) 03/06/18 05:35 MCV 89 fl (84-94) 03/06/18 05:35 MCH 29 pg (28-32) 03/06/18 05:35 MCHC 33 % (32-34) 03/06/18 05:35 RDW 14.8 % (13.2-15.2) 03/06/18 05:35 Plt Count 213 K/mm3 (140-440) 03/06/18 05:35 Lymph % (Auto) 27.1 % (13.4-35.0) 03/06/18 05:35 Emanuel % (Auto) 11.4 % (0.0-7.3) H 03/06/18 05:35 Eos % (Auto) 3.0 % (0.0-4.3) 03/06/18 05:35 Baso % (Auto) 0.4 % (0.0-1.8) 03/06/18 05:35 Lymph # 1.3 K/mm3 (1.2-5.4) 03/06/18 05:35 Emanuel # 0.6 K/mm3 (0.0-0.8) 03/06/18 05:35 Eos # 0.1 K/mm3 (0.0-0.4) 03/06/18 05:35 Baso # 0.0 K/mm3 (0.0-0.1) 03/06/18 05:35 Seg Neutrophils % 58.1 % (40.0-70.0) 03/06/18 05:35 Seg Neutrophils # 2.8 K/mm3 (1.8-7.7) 03/06/18 05:35 D-Dimer 327.62 ng/mlDDU (0-234) H 03/03/18 18:02 Sodium 140 mmol/L (137-145) 03/06/18 05:35 Potassium 4.1 mmol/L (3.6-5.0) D 03/06/18 05:35 Chloride 105.3 mmol/L (98-107) 03/06/18 05:35 Carbon Dioxide 24 mmol/L (22-30) 03/06/18 05:35 Anion Gap 15 mmol/L 03/06/18 05:35 BUN 12 mg/dL (9-20) 03/06/18 05:35 Creatinine 1.0 mg/dL (0.8-1.5) 03/06/18 05:35 Estimated GFR > 60 ml/min 03/06/18 05:35 BUN/Creatinine Ratio 12 % 03/06/18 05:35 Glucose 86 mg/dL (75-100) 03/06/18 05:35 Calcium 8.5 mg/dL (8.4-10.2) 03/06/18 05:35 Troponin T < 0.010 ng/mL (0.00-0.029) 03/03/18 20:20 NT-Pro-B Natriuret Pep 5377 pg/mL (0-900) H 03/03/18 17:18
[2018-03-08] MEDS: LASIX IV SCH (06:03)
--- NOTE | 2018-03-08 10:31 | Progress Note ---
Assessment and Plan Acute systolic heart failure s/t noncompliance chest CTA negative for PE Nonischemic cardiomyopathy 12/2017 [facility] findings: 1. Small vessel coronary artery disease. 2. Ejection fraction 10%. Recommendations: Dietary/fluid restriction. Continue medical therapy for small vessel coronary artery disease and non- ischemic cardiomyopathy. Stable cardiac bland. Pt will f/u with Dr Cisneros on Mar.15 at 220. Subjective Date of service: 03/08/18 Interval history: Patient is resting in bed comfortably. He has no complaint, reports his breathing is better. Objective Vital Signs Temp Pulse Pulse Resp BP Pulse Ox 03/08/18 08:45 97.8 F 53 L 18 115/78 98 03/08/18 03:25 98.1 F 58 L 16 115/79 91 03/08/18 00:00 58 L 03/07/18 23:00 98.3 F 18 97 03/07/18 22:50 58 L 119/70 03/07/18 22:00 68 03/07/18 19:47 98.5 F 57 L 16 83/56 93 03/07/18 16:32 98.4 F 56 L 18 117/80 100 03/07/18 16:00 62 03/07/18 12:57 98.2 F 63 18 111/73 97 03/07/18 12:14 59 L 89/60 03/07/18 12:13 59 L - Physical Examination General: No Apparent Distress HEENT: Positive: PERRL Neck: Positive: neck supple, trachea midline Cardiac: Positive: Reg Rate and Rhythm Neuro: Positive: Grossly Intact Abdomen: Positive: Soft Skin: Positive: Clear Extremities: Present: +1 Edema
[2018-03-08] MEDS: ALDACTONE PO SCH (10:58)
[2018-03-08] MEDS: COREG PO SCH (10:58)
[2018-03-08] MEDS: ZESTRIL PO SCH (10:59)
[2018-03-08] MEDS: PEPCID PO SCH (10:59)
[2018-03-08] MEDS: IMDUR PO SCH (10:59)
[2018-03-08] MEDS: HALFPRIN EC PO SCH (10:59)
[2018-03-08] MEDS: SODIUM CHLORIDE FLUSH SYRINGE 10 ML IV SCH (11:04)
--- NOTE | 2018-03-08 11:29 | Discharge Summary ---
Providers - Providers Date of Admission: 03/03/18 18:07 Date of discharge: 03/08/18 Attending physician: EVY KINCAID 03/03/18 18:07 Consult to Physician [CONS] Routine Comment: Consulting Provider: HERLINDA BOYLE Physician Instructions: Reason For Exam: chf/acs 03/05/18 18:19 Consult to Case Management [CONS] Routine Services Needed at Discharge: Nut Sheller Machine Operator Notified:: case management Additional Physician Instructions: CM consult 03/07/18 10:24 Physical Therapy Evaluation and Treat [CONS] Routine Comment: Reason For Exam: heart failure, weakness, endurance training Primary care physician: MARIE HERNANDEZ Hospitalization Condition: Fair Hospital course: Patient is 63 yo with hypertension, CHF. He presented with shortness of breath. Patient was diagnosed with acute resp failure due to acute on chronic systolic CHF. He was started on Lasix iv, admitted, evaluated by cardiology. Patient was put on Milrinone drip. Symptoms improved and he was discharged home on 03/08/18. Total time spent on discharge, 32 mins. Disposition: [id number] HOME UNDER HOME HL[facility] - Discharge Diagnoses (1) Acute on chronic systolic (congestive) heart failure Status: Acute (2) Chest pain Status: Acute (3) Dilated cardiomyopathy Status: Acute (4) NICM (nonischemic cardiomyopathy) Status: Acute (5) Obesity (BMI 35.0-39.9 without comorbidity) Status: Acute Core Measure Documentation - Palliative Care Palliative Care/ Comfort Measures: Not Applicable - Core Measures Any of the following diagnoses?: heart failure - Heart Failure Discharge Requirements BETTY/ARB for LVSD if EF <40%: Yes Beta niels at discharge: Yes Exam - Physical Exam Narrative exam: GEN: Not in acute distress, lying in bed HEENT: Normocephalic, atraumatic, Neck: supple, No JVD Lungs: Clear. No wheeze Heart:S1 and S2 regular, no murmurs, rubs or gallop, Abd:soft, non tender, non distended, normal bowel sounds Ext: No edema, no clubbing or cyanosis Neuro: Awake,alert, oriented x 3, No focal signs Psych:Normal mood - Constitutional Vitals: Temp Pulse Resp BP Pulse Ox 97.8 F 70 18 101/49 98 03/08/18 08:45 03/08/18 10:59 03/08/18 08:45 03/08/18 10:59 03/08/18 08:45 Plan Activity: no restrictions Diet: low fat, low cholesterol, low salt Additional Instructions: 1.Follow up with PCP in 1 week. Follow up with: MARIE HERNANDEZ MD [Primary Care Provider] - 7 Days Prescriptions: Aspirin [Aspirin TAB] 325 mg PO QDAY #30 tablet AtorvaSTATin [Lipitor] 40 mg PO QHS #30 tablet Carvedilol [Coreg] 6.25 mg PO BID #60 tablet Furosemide [Lasix TAB] 40 mg PO QDAY #30 tablet ISOSORBIDE MONOnitrate [Imdur ER] 30 mg PO QDAY #30 tablet Lisinopril [Zestril TAB] 5 mg PO QDAY #30 tablet Spironolactone [Aldactone] 25 mg PO QDAY #30 tablet
[2018-03-08 13:19] VITALS: BP 110/56
[2018-03-08] MEDS ORDERED: LASIX PO SCH (18:00)
== END 2018-03-08 17:06 | disposition home health service (06) | DRG 292 ==
LOC: ED 13:42 → 4A 18:07
PROVIDERS: ADMIT Internal Medicine; ATTEND Internal Medicine
PROC: 3E0234Z Introduction of Serum, Toxoid and Vaccine into Muscle, Percutaneous Approach (ICD-10-PCS; principal; 2018-03-05)
DX: I11.0 Hypertensive heart disease with heart failure (principal); I24.9 Acute ischemic heart disease, unspecified; I50.23 Acute on chronic systolic (congestive) heart failure; I42.0 Dilated cardiomyopathy; Z23 Encounter for immunization; I25.10 Atherosclerotic heart disease of native coronary artery without angina pectoris; G43.909 Migraine, unspecified, not intractable, without status migrainosus; Z79.82 Long term (current) use of aspirin; Z79.899 Other long term (current) drug therapy; E66.9 Obesity, unspecified; Z68.35 Body mass index [BMI] 35.0-35.9, adult; Z71.3 Dietary counseling and surveillance; Z82.49 Family history of ischemic heart disease and other diseases of the circulatory system; N40.0 Benign prostatic hyperplasia without lower urinary tract symptoms
CPT/HCPCS: 36415; 71045; 71275; 80048; 83880; 84484; 85025; 85379; 90686; 90732; 93005; 93010; 94760; 96374; 96375; G0378; J1940; J2260; J2270; J2405; Q9967

== ENCOUNTER 2018-05-16 18:01 | Inpatient (IN) | payer MEDICAID ==
[2018-05-16] MEDS ORDERED: ASPIRIN PO ONE (18:05)
--- NOTE | 2018-05-16 18:16 | Emergency Department Report ---
Chief Complaint: Chest Pain Stated Complaint: KESHAWN Time Seen by Provider: 05/16/18 18:13 - HPI History of Present Illness: This is a 63 y.o. male that presents with SOB and chest pain. PMH CHF - Exam Vital Signs: Vital Signs 05/16/18 18:05 Temperature 98.0 F Pulse Rate 79 Respiratory 20 Rate Blood Pressure 106/69 [Right] O2 Sat by Pulse 98 Oximetry MSE screening note: Focused history and physical exam performed. Due to findings the following was ordered: Placed on oxygen. Labs, CXR, and ekg Main ED. ED Disposition for MSE Condition: Stable
[2018-05-16 18:54] LABS: Basophils % (Auto) 0.8 % (0.0-1.8); Eosinophils # (Auto) 0.1 K/mm3 (0.0-0.4); Eosinophils % (Auto) 2.4 % (0.0-4.3); Hematocrit 44.4 % (35.5-45.6); Hemoglobin 14.7 gm/dl (11.8-15.2); Lymphocytes # (Auto) 1.3 K/mm3 (1.2-5.4); Lymphocytes % (Auto) 30.3 % (13.4-35.0); Mean Corpuscular HGB Conc 33 % (32-34); Mean Corpuscular Volume 91 fl (84-94); Monocytes # (Auto) 0.4 K/mm3 (0.0-0.8); Monocytes % (Auto) 9.6 % (0.0-7.3); Platelet Count 224 K/mm3 (140-440); Red Blood Count 4.88 M/mm3 (3.65-5.03)
[2018-05-16 19:07] LABS: INR 0.95 (0.87-1.13)
[2018-05-16 19:09] LABS: BUN/Creatinine Ratio 14; Blood Urea Nitrogen 13 mg/dL (9-20); Calcium 8.8 mg/dL (8.4-10.2); Hemolysis Index 28
--- NOTE | 2018-05-16 19:37 | XRay Report ---
PROCEDURE: XR CHEST 1V AP TECHNIQUE: Frontal portable view of the chest HISTORY: Chest Pain COMPARISONS: Chest x-ray and chest CT dated March 03, 2018 the reports of those studies are not fredrick ilable for review at the time of this dictation. FINDINGS: There is prominence of the interstitial markings in both lungs and patchy areas of pulmonary consolid ation in both lung bases, right greater than left similar in appearance to the previous study. Pleural effusions cannot be excluded. The cardiac silhouette is enlarged. The thoracic aorta is tortuous with atherosclerotic vascular calcification. There is prominence of the pulmonary venous vasculature suggestive of pulmonary venous congestion. The bony structures are unremarkable. IMPRESSION: 1. Bilateral interstitial and airspace process with enlarged cardiac silhouette and evidence of pulmo nary venous congestion. This most likely represents changes of CHF. However, an infectious component cannot entirely be excluded. This document is electronically signed by Nina Gilbert MD., May 16 2018 07:35:21 PM ET
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
[2018-05-16] MEDS ORDERED: NITROSTAT SL PRN (21:05)
[2018-05-16] MEDS ORDERED: LASIX IV ONE (21:05)
[2018-05-16] MEDS ORDERED: ZOFRAN IV PRN (22:44)
[2018-05-16] MEDS ORDERED: TYLENOL PO PRN (22:44)
[2018-05-16] MEDS ORDERED: NORCO 5/325 PO PRN (22:44)
[2018-05-16] MEDS ORDERED: AMBIEN PO PRN (22:44)
[2018-05-16] MEDS ORDERED: MORPHINE IV PRN (22:44)
[2018-05-17] MEDS ORDERED: LASIX IV SCH
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
[2018-05-17 05:20] LABS: Bilirubin,Urine NEG (Negative); Blood,Urine NEG (Negative); Color,Urine Yellow (Yellow); Mucus,Urine FEW /HPF; Protein,Urine <15 mg/dL mg/dL (Negative); Urobilinogen,Urine < 2.0 mg/dL (<2.0)
[2018-05-17] MEDS: LASIX IV SCH ×3 (06:46→22:18)
[2018-05-17] MEDS: SODIUM CHLORIDE FLUSH SYRINGE 10 ML IV PRN (06:47)
[2018-05-17 07:44] LABS: BUN/Creatinine Ratio 15; Blood Urea Nitrogen 16 mg/dL (9-20); Calcium 8.1 mg/dL (8.4-10.2); Hemolysis Index 18
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
[2018-05-17] MEDS: ZESTRIL PO SCH (09:27)
[2018-05-17] MEDS: FLOMAX PO SCH (09:27)
[2018-05-17] MEDS: ASPIRIN PO SCH (09:27)
[2018-05-17] MEDS: COREG PO SCH ×2 (09:27→22:18)
[2018-05-17] MEDS: IMDUR PO SCH (09:27)
[2018-05-17] MEDS: ALDACTONE PO SCH (09:28)
[2018-05-17] MEDS: PEPCID PO SCH ×2 (09:28→22:17)
[2018-05-17] MEDS ORDERED: K-DUR PO ONE ×2 (11:54→16:00)
[2018-05-17] MEDS: SODIUM CHLORIDE FLUSH SYRINGE 10 ML IV SCH ×2 (15:05→22:19)
[2018-05-17] MEDS: LOVENOX SUB-Q SCH (15:05)
[2018-05-17] MEDS: MAG-OX PO SCH (15:05)
--- NOTE | 2018-05-17 18:07 | Progress Note ---
Assessment and Plan Assessment and plan: Patient is a 63-year-old -[place] male with history of CHF who presented to the ED on account of 1 day history of worsening shortness of breath on mild exertion. He has associated midsternal chest pain, palpitation, bilateral leg swelling, 4 pillow orthopnea, dry cough, subjective fever with chills, PND and lightheadedness. He denies headaches, sore throat, runny nose or congestion, nausea, vomiting, syncope or loss of consciousness. No abdominal pain, constipation, diarrhea, dysuria or frequency. Patient admits to being noncompliant with his medications because he believes they cause him to have back pain and constipation. Acute on chronic systolic heart failure with EF of 25-30% -On CHF protocol -Cardiology consulted Chest pain, rule out ACS -On chest pain pathway Hypertension -Uncontrolled -Home medications resumed Hyperlipidemia -Continue statin Chronic back pain -On when necessary narcotics DVT prophylaxis with Lovenox Disposition: For discharge when medically stable History Interval history: Patient was seen and examined. Follow-up on current diagnosis. Overnight uneventful. Patient denies any chest pain, shortness breath, nausea/vomiting or severe headaches. Imaging, nursing note, chart, labs and old chart reviewed. Discussed with patient. Hospitalist Physical - Physical exam Narrative exam: Gen: WDWN, NAD, Awake, Alert, Orientated HEENT: NCAT, EOMI, PERRL, OP Clear Neck: supple, no adenopathy, no thyromegaly, no JVD CVS/Heart: RRR, normal S1S2, pulses present bilaterally Chest/Lungs: diminished bs bilateral, Symmetrical chest expansion, good air entry bilaterally GI/Abdomen: soft, NTND, good bowel sounds, no guarding or rebound /Bladder: no suprapubic tenderness, no CVA or paraspinal tenderness Extermity/Skin: no c/c/e, no obvious rash MSK: FROM x 4 Neuro: CN 2-12 grossly intact, no new focal deficits Psych: calm - Constitutional Vitals: Temp Pulse Resp BP Pulse Ox 97.1 F L 82 18 127/92 96 05/17/18 11:34 05/17/18 06:44 05/17/18 11:34 05/17/18 11:34 05/17/18 06:44 General appearance: Present: no acute distress Results - Labs CBC & Chem 7: 05/16/18 18:22 05/17/18 06:49 Labs: Laboratory Last Values WBC 4.5 K/mm3 (4.5-11.0) 05/16/18 18: RBC 4.88 M/mm3 (3.65-5.03) 05/16/18 18: Hgb 14.7 gm/dl (11.8-15.2) 05/16/18 18: Hct 44.4 % (35.5-45.6) 05/16/18 18: MCV 91 fl (84-94) 05/16/18 18: MCH 30 pg (28-32) 05/16/18 18: MCHC 33 % (32-34) 05/16/18 18: RDW 16.0 % (13.2-15.2) H 05/16/18 18: Plt Count 224 K/mm3 (140-440) 05/16/18 18: Lymph % (Auto) 30.3 % (13.4-35.0) 05/16/18 18:22 [place] % (Auto) 9.6 % (0.0-7.3) H 05/16/18 18: Eos % (Auto) 2.4 % (0.0-4.3) 05/16/18 18: Baso % (Auto) 0.8 % (0.0-1.8) 05/16/18 18: Lymph # 1.3 K/mm3 (1.2-5.4) 05/16/18 18: [place] # 0.4 K/mm3 (0.0-0.8) 05/16/18 18: Eos # 0.1 K/mm3 (0.0-0.4) 05/16/18 18: Baso # 0.0 K/mm3 (0.0-0.1) 05/16/18 18: Seg Neutrophils % 56.9 % (40.0-70.0) 05/16/18 18: Seg Neutrophils # 2.5 K/mm3 (1.8-7.7) 05/16/18 18: PT 13.2 Sec. (12.2-14.9) 05/16/18 18:22 INR 0.95 (0.87-1.13) 05/16/18 18:22 Sodium 142 mmol/L (137-145) 05/17/18 06:49 Potassium 3.8 mmol/L (3.6-5.0) 05/17/18 06:49 Chloride 104.8 mmol/L (98-107) 05/17/18 06:49 Carbon Dioxide 27 mmol/L (22-30) 05/17/18 06:49 Anion Gap 14 mmol/L 05/17/18 06:49 BUN 16 mg/dL (9-20) 05/17/18 06:49 Creatinine 1.1 mg/dL (0.8-1.5) 05/17/18 06:49 Estimated GFR > 60 ml/min 05/17/18 06:49 BUN/Creatinine Ratio 15 % 05/17/18 06:49 Glucose 112 mg/dL (75-100) H 05/17/18 06:49 Calcium 8.1 mg/dL (8.4-10.2) L 05/17/18 06:49 Magnesium 1.90 mg/dL (1.7-2.3) 05/16/18 18:22 Total Creatine Kinase 204 units/L (55-170) H 05/16/18 18:22 Troponin T < 0.010 ng/mL (0.00-0.029) 05/17/18 01:09 NT-Pro-B Natriuret Pep 6578 pg/mL (0-900) H 05/16/18 18:22 Urine Color Yellow (Yellow) 05/17/18 04:51 Urine Turbidity Clear (Clear) 05/17/18 04:51 Urine pH 6.0 (5.0-7.0) 05/17/18 04:51 Ur Specific [place] 1.012 (1.003-1.030) 05/17/18 04:51 Urine Protein <15 mg/dl mg/dL (Negative) 05/17/18 04:51 Urine Glucose (UA) Neg mg/dL (Negative) 05/17/18 04:51 Urine Ketones Neg mg/dL (Negative) 05/17/18 04:51 Urine Blood Neg (Negative) 05/17/18 04:51 Urine Nitrite Neg (Negative) 05/17/18 04:51 Urine Bilirubin Neg (Negative) 05/17/18 04:51 Urine Urobilinogen < 2.0 mg/dL (<2.0) 05/17/18 04:51 Ur Leukocyte Esterase Neg (Negative) 05/17/18 04:51 Urine WBC (Auto) 1.0 /HPF (0.0-6.0) 05/17/18 04:51 Urine RBC (Auto) 2.0 /HPF (0.0-6.0) 05/17/18 04:51 Urine Mucus Few /HPF 05/17/18 04:51 Active Medications - Current Medications Current Medications: Generic Name Dose Route Start Last Admin Trade Name Freq PRN Reason Stop Dose Admin Acetaminophen 650 mg 05/16/18 22:44 Tylenol PO Q4H PRN Pain MILD(1-3)/Fever >100.5/GARCÍA Acetaminophen/Hydrocodone [place] 1 each 05/16/18 22:44 [place] 5/325 PO Q6H PRN Pain, Moderate (4-6) Aspirin 325 mg 05/17/18 10:00 05/17/18 09:27 Aspirin PO 325 mg QDAY CHIKI Administration Atorvastatin Calcium 40 mg 05/17/18 22:00 Lipitor PO QHS CHIKI Carvedilol 6.25 mg 05/16/18 23:00 05/17/18 09:27 Coreg PO 6.25 mg BID CHIKI Administration Enoxaparin Sodium 40 mg 05/17/18 10:00 05/17/18 15:05 Lovenox SUB-Q 40 mg QDAY CHIKI Administration Famotidine 20 mg 05/17/18 10:00 05/17/18 09:28 Pepcid PO 20 mg BID CHIKI Administration Furosemide 40 mg 05/17/18 06:00 05/17/18 15:05 Lasix IV 40 mg Q8H CHIKI Administration Isosorbide Mononitrate 30 mg 05/17/18 10:00 05/17/18 09:27 Imdur PO 30 mg QDAY CHIKI Administration Lisinopril 5 mg 05/17/18 10:00 05/17/18 09:27 Zestril PO 5 mg QDAY CHIKI Administration Magnesium Oxide 400 mg 05/17/18 12:00 05/17/18 15:05 Mag-Ox PO 400 mg QDAY CHIKI Administration Morphine Sulfate 2 mg 05/16/18 22:44 Morphine IV Q4H PRN Pain, Moderate (4-6) Nitroglycerin 0.4 mg 05/16/18 21:05 Nitrostat SL .Q5MIN PRN Chest Pain Ondansetron HCl 4 mg 05/16/18 22:44 Zofran IV Q8H PRN Nausea And Vomiting Sodium Chloride 10 ml 05/17/18 10:00 05/17/18 15:05 Sodium Chloride Flush Syringe 10 Ml IV 10 ml BID CHIKI Administration Sodium Chloride 10 ml 05/16/18 22:44 05/17/18 06:47 Sodium Chloride Flush Syringe 10 Ml IV 10 ml PRN PRN Administration LINE FLUSH Spironolactone 25 mg 05/17/18 10:00 05/17/18 09:28 Aldactone PO 25 mg QDAY CHIKI Administration Tamsulosin HCl 0.4 mg 05/17/18 10:00 05/17/18 09:27 Flomax PO 0.4 mg QDAY CHIKI Administration Zolpidem Tartrate 5 mg 05/16/18 22:44 Ambien PO QHS PRN Insomnia
[2018-05-18] MEDS: LASIX IV SCH ×2 (05:54→18:19)
[2018-05-18] MEDS: SODIUM CHLORIDE FLUSH SYRINGE 10 ML IV PRN (05:56)
--- NOTE | 2018-05-18 10:10 | Progress Note ---
Assessment and Plan Acute on chronic systolic heart failure s/t noncompliance with dietary restrictions NSVT on telemetry; pt remained asymptomatic. Nonischemic cardiomyopathy 12/2017 [facility] findings: 1. Small vessel coronary artery disease. 2. Ejection fraction 10%. Non-compliance with outpatient follow-ups Recommendations: Dietary/fluid restriction. Continue medical therapy for small vessel coronary artery disease and non- ischemic cardiomyopathy. Otherwise, conservative cardiac management. Subjective Date of service: 05/18/18 Interval history: Patient reports his breathing is better. Admits he is diuresing well. Objective Vital Signs Temp Pulse Resp BP Pulse Ox 05/18/18 03:18 98.3 F 74 20 104/82 97 05/17/18 22:46 97.7 F 68 16 124/82 98 05/17/18 22:18 79 96/74 05/17/18 19:30 98.2 F 72 16 93/65 96 05/17/18 16:56 97.6 F 18 113/72 05/17/18 11:34 97.1 F L 18 127/92 - Physical Examination General: No Apparent Distress HEENT: Positive: PERRL Neck: Positive: trachea midline Cardiac: Positive: Reg Rate and Rhythm Lungs: Positive: Decreased Breath Sounds Neuro: Positive: Grossly Intact Extremities: Present: +1 Edema
[2018-05-18] MEDS: PEPCID PO SCH ×2 (11:01→22:14)
[2018-05-18] MEDS: FLOMAX PO SCH (11:01)
[2018-05-18] MEDS: COREG PO SCH ×3 (11:01→22:14)
[2018-05-18] MEDS: ALDACTONE PO SCH (11:01)
[2018-05-18] MEDS: IMDUR PO SCH (11:01)
[2018-05-18] MEDS: MAG-OX PO SCH (11:01)
[2018-05-18] MEDS: ASPIRIN PO SCH (11:01)
[2018-05-18] MEDS: ZESTRIL PO SCH (11:01)
[2018-05-18] MEDS: SODIUM CHLORIDE FLUSH SYRINGE 10 ML IV SCH ×2 (11:02→22:14)
[2018-05-18] MEDS: LOVENOX SUB-Q SCH (11:02)
--- NOTE | 2018-05-18 13:54 | Progress Note ---
Assessment and Plan Assessment and plan: Patient is a 63-year-old -[place]oz[place] male with history of CHF who presented to the ED on account of 1 day history of worsening shortness of breath on mild exertion. He has associated midsternal chest pain, palpitation, bilateral leg swelling, 4 pillow orthopnea, dry cough, subjective fever with chills, PND and lightheadedness. He denies headaches, sore throat, runny nose or congestion, nausea, vomiting, syncope or loss of consciousness. No abdominal pain, constipation, diarrhea, dysuria or frequency. Patient admits to being noncompliant with his medications because he believes they cause him to have back pain and constipation. Acute on chronic systolic heart failure with EF of 25-30% -On CHF protocol -Cardiology consulted Chest pain, rule out ACS -On chest pain pathway Hypertension -Uncontrolled -Home medications resumed Hyperlipidemia -Continue statin Chronic back pain -On when necessary narcotics DVT prophylaxis with Lovenox Disposition: continue inpatient, For discharge when medically stable at 9:30am today he had a 9 beat run of NSVT, Cardiology notified, treat with bblockade History Interval history: Patient was seen and examined. Follow-up on current diagnosis. Overnight u neventful. Patient denies any chest pain, shortness breath, nausea/vomiting or severe headaches. Imaging, nursing note, chart, labs and old chart reviewed. Discussed with patient. Hospitalist Physical - Physical exam Narrative exam: Gen: WDWN, NAD, Awake, Alert, Orientated HEENT: NCAT, EOMI, PERRL, OP Clear Neck: supple, no adenopathy, no thyromegaly, no JVD CVS/Heart: RRR, normal S1S2, pulses present bilaterally Chest/Lungs: diminished bs bilateral, Symmetrical chest expansion, good air entry bilaterally GI/Abdomen: soft, NTND, good bowel sounds, no guarding or rebound /Bladder: no suprapubic tenderness, no CVA or paraspinal tenderness Extermity/Skin: no c/c/e, no obvious rash MSK: FROM x 4 Neuro: CN 2-12 grossly intact, no new focal deficits Psych: calm - Constitutional Vitals: Temp Pulse Resp BP Pulse Ox 97.3 F L 74 18 121/70 97 05/18/18 07:37 05/18/18 03:18 05/18/18 07:37 05/18/18 07:37 05/18/18 03:18 General appearance: Present: no acute distress Results - Labs CBC & Chem 7: 05/16/18 18:22 05/17/18 06:49 Labs: Laboratory Last Values WBC 4.5 K/mm3 (4.5-11.0) 05/16/18 18:22 RBC 4.88 M/mm3 (3.65-5.03) 05/16/18 18:22 Hgb 14.7 gm/dl (11.8-15.2) 05/16/18 18:22 Hct 44.4 % (35.5-45.6) 05/16/18 18:22 MCV 91 fl (84-94) 05/16/18 18:22 MCH 30 pg (28-32) 05/16/18 18:22 MCHC 33 % (32-34) 05/16/18 18:22 RDW 16.0 % (13.2-15.2) H 05/16/18 18:22 Plt Count 224 K/mm3 (140-440) 05/16/18 18:22 Lymph % (Auto) 30.3 % (13.4-35.0) 05/16/18 18:22 [place] % (Auto) 9.6 % (0.0-7.3) H 05/16/18 18:22 Eos % (Auto) 2.4 % (0.0-4.3) 05/16/18 18:22 Baso % (Auto) 0.8 % (0.0-1.8) 05/16/18 18:22 Lymph # 1.3 K/mm3 (1.2-5.4) 05/16/18 18:22 [place] # 0.4 K/mm3 (0.0-0.8) 05/16/18 18:22 Eos # 0.1 K/mm3 (0.0-0.4) 05/16/18 18:22 Baso # 0.0 K/mm3 (0.0-0.1) 05/16/18 18:22 Seg Neutrophils % 56.9 % (40.0-70.0) 05/16/18 18:22 Seg Neutrophils # 2.5 K/mm3 (1.8-7.7) 05/16/18 18:22 PT 13.2 Sec. (12.2-14.9) 05/16/18 18:22 INR 0.95 (0.87-1.13) 05/16/18 18:22 Sodium 142 mmol/L (137-145) 05/17/18 06:49 Potassium 3.8 mmol/L (3.6-5.0) 05/17/18 06:49 Chloride 104.8 mmol/L (98-107) 05/17/18 06:49 Carbon Dioxide 27 mmol/L (22-30) 05/17/18 06:49 Anion Gap 14 mmol/L 05/17/18 06:49 BUN 16 mg/dL (9-20) 05/17/18 06:49 Creatinine 1.1 mg/dL (0.8-1.5) 05/17/18 06:49 Estimated GFR > 60 ml/min 05/17/18 06:49 BUN/Creatinine Ratio 15 % 05/17/18 06:49 Glucose 112 mg/dL (75-100) H 05/17/18 06:49 Calcium 8.1 mg/dL (8.4-10.2) L 05/17/18 06:49 Magnesium 1.90 mg/dL (1.7-2.3) 05/16/18 18:22 Total Creatine Kinase 204 units/L (55-170) H 05/16/18 18:22 Troponin T < 0.010 ng/mL (0.00-0.029) 05/17/18 01:09 NT-Pro-B Natriuret Pep 6578 pg/mL (0-900) H 05/16/18 18:22 Urine Color Yellow (Yellow) 05/17/18 04:51 Urine Turbidity Clear (Clear) 05/17/18 04:51 Urine pH 6.0 (5.0-7.0) 05/17/18 04:51 Ur Specific [place] 1.012 (1.003-1.030) 05/17/18 04:51 Urine Protein <15 mg/dl mg/dL (Negative) 05/17/18 04:51 Urine Glucose (UA) Neg mg/dL (Negative) 05/17/18 04:51 Urine Ketones Neg mg/dL (Negative) 05/17/18 04:51 Urine Blood Neg (Negative) 05/17/18 04:51 Urine Nitrite Neg (Negative) 05/17/18 04:51 Urine Bilirubin Neg (Negative) 05/17/18 04:51 Urine Urobilinogen < 2.0 mg/dL (<2.0) 05/17/18 04:51 Ur Leukocyte Esterase Neg (Negative) 05/17/18 04:51 Urine WBC (Auto) 1.0 /HPF (0.0-6.0) 05/17/18 04:51 Urine RBC (Auto) 2.0 /HPF (0.0-6.0) 05/17/18 04:51 Urine Mucus Few /HPF 05/17/18 04:51 Active Medications - Current Medications Current Medications: Generic Name Dose Route Start Last Admin Trade Name Freq PRN Reason Stop Dose Admin Acetaminophen 650 mg 05/16/18 22:44 Tylenol PO Q4H PRN Pain MILD(1-3)/Fever >100.5/GARCÍA Acetaminophen/Hydrocodone [place] 1 each 05/16/18 22:44 [place] 5/325 PO Q6H PRN Pain, Moderate (4-6) Aspirin 325 mg 05/17/18 10:00 05/18/18 11:01 Aspirin PO 325 mg QDAY CHIKI Administration Atorvastatin Calcium 40 mg 05/17/18 22:00 05/17/18 22:17 Lipitor PO 40 mg QHS CHIKI Administration Carvedilol 6.25 mg 05/16/18 23:00 05/18/18 11:23 Coreg PO Not Given BID CHIKI Enoxaparin Sodium 40 mg 05/17/18 10:00 05/18/18 11:02 Lovenox SUB-Q 40 mg QDAY CHIKI Administration Famotidine 20 mg 05/17/18 10:00 05/18/18 11:01 Pepcid PO 20 mg BID CHIKI Administration Furosemide 40 mg 05/18/18 18:00 Lasix IV 0600,1800 CHIKI Isosorbide Mononitrate 30 mg 05/17/18 10:00 05/18/18 11:01 Imdur PO 30 mg QDAY CHIKI Administration Lisinopril 5 mg 05/17/18 10:00 05/18/18 11:01 Zestril PO 5 mg QDAY CHIKI Administration Magnesium Oxide 400 mg 05/17/18 12:00 05/18/18 11:01 Mag-Ox PO 400 mg QDAY CHIKI Administration Morphine Sulfate 2 mg 05/16/18 22:44 Morphine IV Q4H PRN Pain, Moderate (4-6) Nitroglycerin 0.4 mg 05/16/18 21:05 Nitrostat SL .Q5MIN PRN Chest Pain Ondansetron HCl 4 mg 05/16/18 22:44 Zofran IV Q8H PRN Nausea And Vomiting Sodium Chloride 10 ml 05/17/18 10:00 05/18/18 11:02 Sodium Chloride Flush Syringe 10 Ml IV 10 ml BID CHIKI Administration Sodium Chloride 10 ml 05/16/18 22:44 05/18/18 05:56 Sodium Chloride Flush Syringe 10 Ml IV 10 ml PRN PRN Administration LINE FLUSH Spironolactone 25 mg 05/17/18 10:00 05/18/18 11:01 Aldactone PO 25 mg QDAY CHIKI Administration Tamsulosin HCl 0.4 mg 05/17/18 10:00 05/18/18 11:01 Flomax PO 0.4 mg QDAY CHIKI Administration Zolpidem Tartrate 5 mg 05/16/18 22:44 Ambien PO QHS PRN Insomnia
[2018-05-19] MEDS: LASIX IV SCH (05:47)
[2018-05-19] MEDS: FLOMAX PO SCH (10:10)
[2018-05-19] MEDS: MAG-OX PO SCH (10:10)
[2018-05-19] MEDS: ASPIRIN PO SCH (10:10)
[2018-05-19] MEDS: PEPCID PO SCH (10:11)
[2018-05-19] MEDS: LOVENOX SUB-Q SCH ×2 (10:11→10:16)
[2018-05-19] MEDS: COREG PO SCH (10:12)
[2018-05-19] MEDS: IMDUR PO SCH (10:12)
[2018-05-19] MEDS: ZESTRIL PO SCH (10:12)
[2018-05-19] MEDS: SODIUM CHLORIDE FLUSH SYRINGE 10 ML IV SCH (10:14)
[2018-05-19] MEDS: ALDACTONE PO SCH (10:14)
--- NOTE | 2018-05-19 11:31 | Progress Note ---
Assessment and Plan Acute on chronic systolic heart failure s/t noncompliance with dietary restrictions NSVT on telemetry; pt remained asymptomatic. Nonischemic cardiomyopathy 12/2017 [facility] findings: 1. Small vessel coronary artery disease. 2. Ejection fraction 10%. Non-compliance with outpatient follow-ups Recommendations: Dietary/fluid restriction. Continue medical therapy for small vessel coronary artery disease and non- ischemic cardiomyopathy. Otherwise, conservative cardiac management. Stable cardiac bland. Subjective Date of service: 05/19/18 Interval history: Patient reports his breathing is better. Objective Vital Signs Temp Pulse Pulse Resp BP Pulse Ox 05/19/18 08:30 97.8 F 05/19/18 08:28 41 L 18 103/66 99 05/19/18 04:09 98.1 F 59 L 20 114/80 95 05/18/18 23:04 98.3 F 64 18 105/73 93 05/18/18 22:20 96 H 18 51 L 05/18/18 22:14 51 L 92/65 05/18/18 19:24 98.1 F 51 L 18 92/65 95 05/18/18 19:11 64 05/18/18 19:08 66 05/18/18 15:59 76/57 05/18/18 15:34 98.0 F 18 73/49 05/18/18 13:00 70 - Physical Examination General: No Apparent Distress HEENT: Positive: PERRL Neck: Positive: trachea midline Cardiac: Positive: Reg Rate and Rhythm Lungs: Positive: Decreased Breath Sounds Neuro: Positive: Grossly Intact
[2018-05-19 12:56] VITALS: BP 91/52
--- NOTE | 2018-05-19 13:00 | Discharge Summary ---
Providers - Providers Date of Admission: 05/16/18 22:44 Date of discharge: 05/19/18 Attending physician: MARISA WRIGHT 05/16/18 21:05 Consult to Physician [CONS] Urgent Comment: Dr. Ryder spoke with Dr. Hodges @ [id number] Consulting Provider: HERLINDA BOYLE Physician Instructions: Reason For Exam: chf Primary care physician: [facility], Hospitalization Condition: Fair Hospital course: Patient is a 63-year-old -Polish man with history of CHF/NICMP who presented to the ED with CP, SOB and he was admitted for acute exacerbation of CHF. Patient admits to be noncompliant which is the biggest problem here. He needs a LifeVEST or AICD most likely. Acute on chronic systolic heart failure with EF of 10% on Left heart cath 12/2017 -On CHF protocol -Cardiology consulted Chest pain, rule out ACS,stable angina -On chest pain pathway Hypertension -Uncontrolled -Home medications resumed Hyperlipidemia -Continue statin Chronic back pain -On when necessary narcotics DVT prophylaxis with Lovenox NSVT -treat with BBlocker, heart dropped to 41, I notified, Dr. Farah who instructed me to continue coreg and he will see patient in office to arrange either LifeVest of AICD but patient non-compliance is a big obstracle, I did discuss with patient. I called his sister Zohreh, no answer. Nonischemic cardiomyopathy 12/2017 [facility] findings: 1. Small vessel coronary artery disease. 2. Ejection fraction 10%. Disposition: DC-01 TO HOME OR SELFCARE Time spent for discharge: 35 minutes Core Measure Documentation - Palliative Care Palliative Care/ Comfort Measures: Not Applicable - Core Measures Any of the following diagnoses?: heart failure - VTE Discharge Requirements Deep Vein Thrombosis/Pulmonary Embolism Present on Admission: No Has pt received <5 days of overlap therapy or INR<2.0: No Anticoagulant overlap therapy prescribed at discharge: No Contraindication No Overlap Therapy order at DC: Not Indicated - Heart Failure Discharge Requirements BETTY/ARB for LVSD if EF <40%: Yes Beta niels at discharge: Yes Exam - Physical Exam Narrative exam: Gen: WDWN, NAD, Awake, Alert, Orientated HEENT: NCAT, EOMI, PERRL, OP Clear Neck: supple, no adenopathy, no thyromegaly, no JVD CVS/Heart: RRR, normal S1S2, pulses present bilaterally Chest/Lungs: diminished bs bilateral improved, Symmetrical chest expansion, good air entry bilaterally GI/Abdomen: soft, NTND, good bowel sounds, no guarding or rebound /Bladder: no suprapubic tenderness, no CVA or paraspinal tenderness Extermity/Skin: no c/c/e, no obvious rash MSK: FROM x 4 Neuro: CN 2-12 grossly intact, no new focal deficits Psych: calm - Constitutional Vitals: Temp Pulse Resp BP Pulse Ox 97.8 F 41 L 18 103/66 99 05/19/18 08:30 05/19/18 08:28 05/19/18 08:28 05/19/18 08:28 05/19/18 08:28 Plan Activity: other (no strenous acitivity unless cleared by Cardiology, including driving and sex) Diet: low salt Special Instructions: record daily BP diary [facility] Care [facility] - 7 Days HERLINDA BOYLE MD [Staff Physician] - 7 Days Prescriptions: Tamsulosin [Flomax] 0.4 mg PO QHS #30 capsule AtorvaSTATin [Lipitor] 40 mg PO QHS #30 tablet Spironolactone [Aldactone] 25 mg PO QDAY #30 tablet Aspirin [Aspirin TAB] 325 mg PO QDAY #30 tablet Carvedilol [Coreg] 3.125 mg PO BID #60 tablet ISOSORBIDE MONOnitrate [Imdur ER] 30 mg PO QDAY #30 tablet Furosemide [Lasix TAB] 40 mg PO BID #60 tablet Magnesium Oxide [Mag-Ox] 400 mg PO QDAY #30 tablet HYDROcodone/APAP 5-325 [[place] 5-325 mg TAB] 1 each PO Q6H PRN #20 tablet PRN Reason: Pain , Severe (7-10) Lisinopril [Zestril TAB] 5 mg PO QDAY #30 tablet
[2018-05-19] MEDS ORDERED: LASIX PO SCH (18:00)
== END 2018-05-19 15:40 | disposition home health service (06) | DRG 308 ==
LOC: ED 18:01 → 4A 22:44
PROVIDERS: ADMIT Internal Medicine; ATTEND Internal Medicine
DX: I47.2 Ventricular tachycardia (principal); I50.23 Acute on chronic systolic (congestive) heart failure; I11.0 Hypertensive heart disease with heart failure; I25.119 Atherosclerotic heart disease of native coronary artery with unspecified angina pectoris; G89.29 Other chronic pain; I42.0 Dilated cardiomyopathy; G43.909 Migraine, unspecified, not intractable, without status migrainosus; E78.5 Hyperlipidemia, unspecified
CPT/HCPCS: 36415; 71045; 80048; 81001; 82550; 83735; 83880; 84484; 85025; 85610; 87116; 93005; 93010; G0378; A9270-GY; J1650; J1940

== ENCOUNTER 2019-09-27 04:28 | Observation (INO) | payer MEDICAID ==
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
[2019-09-27 07:57] LABS: Basophils % (Auto) 0.6 % (0.0-1.8); Eosinophils # (Auto) 0.1 K/mm3 (0.0-0.4); Eosinophils % (Auto) 0.8 % (0.0-4.3); Hematocrit 44.3 % (35.5-45.6); Hemoglobin 14.6 gm/dl (11.8-15.2); Lymphocytes # (Auto) 1.2 K/mm3 (1.2-5.4); Lymphocytes % (Auto) 14.6 % (13.4-35.0); Mean Corpuscular HGB Conc 33 % (32-34); Mean Corpuscular Volume 90 fl (84-94); Monocytes # (Auto) 0.8 K/mm3 (0.0-0.8); Monocytes % (Auto) 9.4 % (0.0-7.3); Platelet Count 231 K/mm3 (140-440); Red Blood Count 4.92 M/mm3 (3.65-5.03); Red Cell Distribution Width 14.9 % (13.2-15.2)
--- NOTE | 2019-09-27 08:05 | XRay Report ---
CHEST 1 VIEW INDICATION / CLINICAL INFORMATION: Shortness of breath, cough. COMPARISON: 05/16/2018 FINDINGS: SUPPORT DEVICES: None. HEART / MEDIASTINUM: No significant abnormality. LUNGS / PLEURA: There is focal parenchymal disease throughout the right upper lobe. There is pulmonar y vascular congestion. No effusion. No pneumothorax. ADDITIONAL FINDINGS: No significant additional findings. IMPRESSION: 1. Right upper lobe airspace disease consistent with pneumonia. Signer Name: Polina Araujo MD Signed: 09/27/2019 8:01 AM Workstation Name: [id number]
[2019-09-27 08:21] LABS: Creatine Kinase MB 4.7 ng/mL (0.0-4.0)
[2019-09-27 08:24] LABS: BUN/Creatinine Ratio 15; Blood Urea Nitrogen 12 mg/dL (9-20); Calcium 8.6 mg/dL (8.4-10.2); Hemolysis Index 14
[2019-09-27 08:35] LABS: INR 0.99 (0.87-1.13)
[2019-09-27] MEDS ORDERED: FUROSEMIDE 40 MG/4 ML INJ IV ONE (08:58)
[2019-09-27] MEDS ORDERED: AZITHROMYCIN 500 MG in SODIUM CHLORIDE 0.9% 250ML 250 ML IV ONE (09:00)
[2019-09-27 10:11] LABS: C-Reactive Protein 4.1 mg/dL (0.00-1.30)
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
[2019-09-27] MEDS ORDERED: FUROSEMIDE 40 MG/4 ML INJ ONE (11:51)
[2019-09-27] MEDS: FUROSEMIDE 40 MG/4 ML INJ IV SCH (17:16)
[2019-09-27] MEDS: TAMSULOSIN 0.4 MG CAP PO SCH (22:42)
[2019-09-27] MEDS: FAMOTIDINE 20 MG TAB PO SCH (22:42)
[2019-09-27] MEDS: ENOXAPARIN 40 MG/0.4 ML INJ SUB-Q SCH (22:42)
[2019-09-27] MEDS: carvediloL 3.125 MG TAB PO SCH (22:42)
[2019-09-28 04:48] LABS: Hematocrit 41.7 % (35.5-45.6); Hemoglobin 14.1 gm/dl (11.8-15.2); Mean Corpuscular HGB Conc 34 % (32-34); Mean Corpuscular Volume 89 fl (84-94); Platelet Count 253 K/mm3 (140-440); Red Blood Count 4.69 M/mm3 (3.65-5.03)
[2019-09-28 05:05] LABS: Alanine Aminotransferase 34 units/L (7-56); Albumin 3.2 g/dL (3.9-5); BUN/Creatinine Ratio 13; Blood Urea Nitrogen 14 mg/dL (9-20); Calcium 8.8 mg/dL (8.4-10.2); Hemolysis Index 7
[2019-09-28] MEDS: FUROSEMIDE 40 MG/4 ML INJ IV SCH ×2 (05:33→17:27)
[2019-09-28 06:40] LABS: Basophils % (Manual) 0 % (0.0-1.8); Platelet Estimate Consistent w Auto; Total Cells Counted 100
[2019-09-28] MEDS: ASPIRIN 325 MG TAB PO SCH (09:52)
[2019-09-28] MEDS: SPIRONOLACTONE 25 MG TAB PO SCH (09:53)
[2019-09-28] MEDS: carvediloL 3.125 MG TAB PO SCH ×2 (09:53→23:06)
[2019-09-28] MEDS: FAMOTIDINE 20 MG TAB PO SCH ×2 (09:54→23:06)
--- NOTE | 2019-09-28 10:47 | Progress Note ---
Assessment and Plan Assessment and plan: COVID test negative --High suspicion for COVID-19; test negative Contact and droplet isolation Espinoza PCR test, inflammatory markers --Right upper lobe pneumonia; Probably community-acquired, Suspicion for COVID pneumonia Empiric antibiotics Rocephin and Zithromax Follow cultures, consult ID if needed --Acute on chronic systolic congestive heart failure; EF 20% Managed with IV diuretics, beta-blockers, BETTY inhibitors, nitrates Input output monitoring, low-sodium diet Fluid restriction, cardiology consulted --Nonischemic cardiomyopathy. EF 20% on echo in 2018 Continue anti-failure medications --Elevated D-dimers; CTA chest negative for PE, right-sided pneumonia --Hypertension. Resume antihypertensives, PRN medications --DVT prophylaxis; Lovenox --Medical noncompliance; counseling done Patient advised to comply with medications diet follow-up visits Verbalized understanding --History of BPH; continue tamsulosin --Full CODE STATUS We will closely monitor the patient and adjust management as needed Plan of care reviewed with the patient and his nurse 64-year-old male patient was admitted with acute on chronic systolic congestive heart failure, dilated cardiomyopathy with ejection fraction of less than 20 High suspicion for COVID, COVID test is negative, and right-sided pneumonia being treated with empiric antibiotics.Follow cardiology recommendations, possible discharge in 1 to 2 days if stable History Interval history: I have seen and examined the patient at the bedside Patient's chart and current medication list reviewed Admitted with acute on chronic systolic congestive heart failure and pneumonia We will tested for chronic PCR, in isolation Vital signs reviewed Hospitalist Physical - Constitutional Vitals: Temp Pulse Resp BP Pulse Ox 98.2 F 76 18 118/84 97 09/27/19 21:35 09/28/19 03:51 09/28/19 06:13 09/28/19 09:53 09/28/19 03:51 General appearance: Present: mild distress, well-nourished, cachectic - EENT Eyes: Present: PERRL, EOM intact - Neck Neck: Present: supple, normal ROM - Respiratory Respiratory effort: normal Respiratory: bilateral: diminished, rales, negative: rhonchi, wheezing - Cardiovascular Rhythm: regular Heart Sounds: Present: S1 & S2 - Extremities Extremities: no ischemia, No edema - Abdominal General gastrointestinal: soft, non-tender, non-distended, normal bowel sounds - Integumentary Integumentary: Present: clear, warm - Psychiatric Psychiatric: appropriate mood/affect, cooperative - Neurologic Neurologic: CNII-XII intact, moves all extremities HEART Score - HEART Score Troponin: Troponin T < 0.010 ng/mL (0.00-0.029) 09/27/19 07:30 Results - Labs CBC & Chem 7: 09/28/19 04:13 09/28/19 04:13 Labs: Laboratory Last Values WBC 4.9 K/mm3 (4.5-11.0) 09/28/19 04:13 RBC 4.69 M/mm3 (3.65-5.03) 09/28/19 04:13 Hgb 14.1 gm/dl (11.8-15.2) 09/28/19 04:13 Hct 41.7 % (35.5-45.6) 09/28/19 04:13 MCV 89 fl (84-94) 09/28/19 04:13 MCH 30 pg (28-32) 09/28/19 04:13 MCHC 34 % (32-34) 09/28/19 04:13 RDW 15.0 % (13.2-15.2) 09/28/19 04:13 Plt Count 253 K/mm3 (140-440) 09/28/19 04:13 Lymph % (Auto) 14.6 % (13.4-35.0) 09/27/19 07:30 Hanson % (Auto) 9.4 % (0.0-7.3) H 09/27/19 07:30 Eos % (Auto) 0.8 % (0.0-4.3) 09/27/19 07:30 Baso % (Auto) Heel Boom Operator 09/28/19 04:13 Lymph # 1.2 K/mm3 (1.2-5.4) 09/27/19 07:30 Hanson # 0.8 K/mm3 (0.0-0.8) 09/27/19 07:30 Eos # 0.1 K/mm3 (0.0-0.4) 09/27/19 07:30 Baso # 0.0 K/mm3 (0.0-0.1) 09/27/19 07:30 Add Manual Diff Complete 09/28/19 04:13 Total Counted 100 09/28/19 04:13 Seg Neutrophils % 74.6 % (40.0-70.0) H 09/27/19 07:30 Seg Neuts % (Manual) 45.0 % (40.0-70.0) 09/28/19 04:13 Band Neutrophils % 0 % 09/28/19 04:13 Lymphocytes % (Manual) 42.0 % (13.4-35.0) H 09/28/19 04:13 Reactive Lymphs % (Man) 0 % 09/28/19 04:13 Monocytes % (Manual) 5.0 % (0.0-7.3) 09/28/19 04:13 Eosinophils % (Manual) 8.0 % (0.0-4.3) H 09/28/19 04:13 Basophils % (Manual) 0 % (0.0-1.8) 09/28/19 04:13 Metamyelocytes % 0 % 09/28/19 04:13 Myelocytes % 0 % 09/28/19 04:13 Promyelocytes % 0 % 09/28/19 04:13 Blast Cells % 0 % 09/28/19 04:13 Nucleated RBC % Not Reportable 09/28/19 04:13 Seg Neutrophils # 6.0 K/mm3 (1.8-7.7) 09/27/19 07:30 Seg Neutrophils # Man 2.2 K/mm3 (1.8-7.7) 09/28/19 04:13 Band Neutrophils # 0.0 K/mm3 09/28/19 04:13 Lymphocytes # (Manual) 2.1 K/mm3 (1.2-5.4) 09/28/19 04:13 Abs React Lymphs (Man) 0.0 K/mm3 09/28/19 04:13 Monocytes # (Manual) 0.2 K/mm3 (0.0-0.8) 09/28/19 04:13 Eosinophils # (Manual) 0.4 K/mm3 (0.0-0.4) 09/28/19 04:13 Basophils # (Manual) 0.0 K/mm3 (0.0-0.1) 09/28/19 04:13 Metamyelocytes # 0.0 K/mm3 09/28/19 04:13 Myelocytes # 0.0 K/mm3 09/28/19 04:13 Promyelocytes # 0.0 K/mm3 09/28/19 04:13 Blast Cells # 0.0 K/mm3 09/28/19 04:13 WBC Morphology Not Reportable 09/28/19 04:13 Hypersegmented Neuts Not Reportable 09/28/19 04:13 Hyposegmented Neuts Not Reportable 09/28/19 04:13 Hypogranular Neuts Not Reportable 09/28/19 04:13 Smudge Cells Not Reportable 09/28/19 04:13 Toxic Granulation Not Reportable 09/28/19 04:13 Toxic Vacuolation Not Reportable 09/28/19 04:13 Dohle Bodies Not Reportable 09/28/19 04:13 Pelger-Huet Anomaly Not Reportable 09/28/19 04:13 Bobby Rods Not Reportable 09/28/19 04:13 Platelet Estimate Consistent w auto 09/28/19 04:13 Clumped Platelets Not Reportable 09/28/19 04:13 Plt Clumps, EDTA Not Reportable 09/28/19 04:13 Large Platelets Not Reportable 09/28/19 04:13 Giant Platelets Not Reportable 09/28/19 04:13 Platelet Satelliting Not Reportable 09/28/19 04:13 Plt Morphology Comment Not Reportable 09/28/19 04:13 RBC Morphology Not Reportable 09/28/19 04:13 Dimorphic RBCs Not Reportable 09/28/19 04:13 Polychromasia Not Reportable 09/28/19 04:13 Hypochromasia Not Reportable 09/28/19 04:13 Poikilocytosis Not Reportable 09/28/19 04:13 Anisocytosis Not Reportable 09/28/19 04:13 Microcytosis Not Reportable 09/28/19 04:13 Macrocytosis Not Reportable 09/28/19 04:13 Spherocytes Not Reportable 09/28/19 04:13 Pappenheimer Bodies Not Reportable 09/28/19 04:13 Sickle Cells Not Reportable 09/28/19 04:13 Target Cells Not Reportable 09/28/19 04:13 Tear Drop Cells Not Reportable 09/28/19 04:13 Ovalocytes Not Reportable 09/28/19 04:13 Helmet Cells Not Reportable 09/28/19 04:13 Pickering-Slaton Bodies Not Reportable 09/28/19 04:13 Tok Rings Not Reportable 09/28/19 04:13 Matthew Cells Not Reportable 09/28/19 04:13 Bite Cells Not Reportable 09/28/19 04:13 Crenated Cell Not Reportable 09/28/19 04:13 Elliptocytes Not Reportable 09/28/19 04:13 Acanthocytes (Spur) Not Reportable 09/28/19 04:13 Rouleaux Not Reportable 09/28/19 04:13 Hemoglobin C Crystals Not Reportable 09/28/19 04:13 Schistocytes Not Reportable 09/28/19 04:13 Malaria parasites Not Reportable 09/28/19 04:13 Davie Bodies Not Reportable 09/28/19 04:13 Hem Pathologist Commnt No 09/28/19 04:13 PT 13.2 Sec. (12.2-14.9) 09/27/19 07:30 INR 0.99 (0.87-1.13) 09/27/19 07:30 D-Dimer 418.19 ng/mlDDU (0-234) H 09/27/19 09:34 Sodium 138 mmol/L (137-145) 09/28/19 04:13 Potassium 3.7 mmol/L (3.6-5.0) 09/28/19 04:13 Chloride 101.2 mmol/L (98-107) 09/28/19 04:13 Carbon Dioxide 25 mmol/L (22-30) 09/28/19 04:13 Anion Gap 16 mmol/L 09/28/19 04:13 BUN 14 mg/dL (9-20) 09/28/19 04:13 Creatinine 1.1 mg/dL (0.8-1.3) 09/28/19 04:13 Estimated GFR > 60 ml/min 09/28/19 04:13 BUN/Creatinine Ratio 13 % 09/28/19 04:13 Glucose 119 mg/dL (75-100) H 09/28/19 04:13 Calcium 8.8 mg/dL (8.4-10.2) 09/28/19 04:13 Magnesium 2.20 mg/dL (1.7-2.3) 09/28/19 04:13 Ferritin 195.0 ng/mL (30.0-300.0) 09/27/19 09:34 Total Bilirubin 0.40 mg/dL (0.1-1.2) 09/28/19 04:13 AST 32 units/L (5-40) 09/28/19 04:13 ALT 34 units/L (7-56) 09/28/19 04:13 Alkaline Phosphatase 56 units/L (35-129) 09/28/19 04:13 Lactate Dehydrogenase 239 units/L (91-180) H 09/27/19 09:34 Total Creatine Kinase 248 units/L (55-170) H 09/27/19 07:30 CK-MB (CK-2) 4.7 ng/mL (0.0-4.0) H 09/27/19 07:30 CK-MB (CK-2) Rel Index 1.8 (0-4) 09/27/19 07:30 Troponin T < 0.010 ng/mL (0.00-0.029) 09/27/19 07:30 C-Reactive Protein 4.10 mg/dL (0.00-1.30) H 09/27/19 09:34 NT-Pro-B Natriuret Pep 5228 pg/mL (0-900) H 09/27/19 07:30 Total Protein 5.9 g/dL (6.3-8.2) L 09/28/19 04:13 Albumin 3.2 g/dL (3.9-5) L 09/28/19 04:13 Albumin/Globulin Ratio 1.2 % 09/28/19 04:13 Procalcitonin < 0.05 ng/mL (<0.15) 09/27/19 09:34 Microbiology: Microbiology 09/27/19 07:30 Peripheral/Venous Blood Culture - Preliminary NO GROWTH AFTER 24 HOURS 09/27/19 07:30 Peripheral/Venous Blood Culture - Preliminary NO GROWTH AFTER 24 HOURS Campos/IV: Voiding Method Toilet IV Catheter Type [Right INT / Saline Lock Forearm] Active Medications - Current Medications Current Medications: Generic Name Dose Route Start Last Admin Trade Name Freq PRN Reason Stop Dose Admin Aspirin 325 mg 09/28/19 10:00 09/28/19 09:52 Aspirin PO 325 mg QDAY CHIKI Administration Atorvastatin Calcium 40 mg 09/27/19 22:00 09/27/19 22:42 Lipitor PO 40 mg QHS CHIKI Administration Carvedilol 3.125 mg 09/27/19 22:00 09/28/19 09:53 Coreg PO 3.125 mg BID CHIKI Administration Enoxaparin Sodium 40 mg 09/27/19 22:00 09/27/19 22:42 Enoxaparin SUB-Q 40 mg QDAY@2200 CHIKI Administration Famotidine 20 mg 09/27/19 22:00 09/28/19 09:54 Pepcid PO 20 mg BID CHIKI Administration Furosemide 40 mg 09/27/19 18:00 09/28/19 05:33 Lasix IV 40 mg 0600,1800 CHIKI Administration Isosorbide Mononitrate 30 mg 09/28/19 10:00 09/28/19 09:53 Imdur PO 30 mg QDAY CHIKI Administration Lisinopril 5 mg 09/28/19 11:00 Zestril PO QDAY CHIKI Spironolactone 25 mg 09/28/19 10:00 09/28/19 09:53 Aldactone PO 25 mg QDAY CHIKI Administration Tamsulosin HCl 0.4 mg 09/27/19 22:00 09/27/19 22:42 Flomax PO 0.4 mg QHS CHIKI Administration
--- NOTE | 2019-09-28 12:02 | Consultation ---
History of Present Illness Consult date: 09/28/19 Consult reason: congestive heart failure History of present illness: This is a 64yr old male with who presented with progressive shortness of breath. Chest x-ray reports evidence of RUL pneumonia. He is currently on isolation protocol for suspicion of coronavirus. There were no reports of chest pain, palpitations or lower extremity edema. An ECG is sinus rhythm, LVH with nonspecific Twave abnormalities. Patient has a history of severe dilated nonischemic cardiomyopathy and chronic systolic heart failure. In 2018 he underwent a cardiac cath that showed small vessel coronary disease recommended for medical therapy. Ejection fraction 10%. A repeat echocardiogram done a year ago showed persistent cardiomyopathy, ejection fraction 15-20%. He was recommended for an ICD placement but declined. Past History Social history: denies: smoking, alcohol abuse, prescription drug abuse Family history: hypertension Medications and Allergies Allergies Allergy/AdvReac Type Severity Reaction Status Date / Time No Known Allergies Allergy Verified 01/09/14 03:24 Home Medications Medication Instructions Recorded Confirmed Last Taken Type Acetaminophen [Acetaminophen TAB] 650 mg PO Q4H PRN #15 tablet 05/19/18 09/27/19 Unknown Rx Aspirin 325 mg PO QDAY #30 tablet 05/19/18 09/27/19 Unknown Rx AtorvaSTATin [Lipitor] 40 mg PO QHS #30 tablet 05/19/18 09/27/19 Unknown Rx Famotidine [Pepcid] 20 mg PO BID tablet 05/19/18 09/27/19 Unknown Rx Furosemide [Lasix TAB] 40 mg PO BID #60 tablet 05/19/18 09/27/19 Unknown Rx HYDROcodone/APAP 5-325 [Elysian 1 each PO Q6H PRN #20 tablet 05/19/18 09/27/19 Unknown Rx 5-325 mg TAB] ISOSORBIDE MONOnitrate [Imdur ER] 30 mg PO QDAY #30 tablet 05/19/18 09/27/19 Unknown Rx Magnesium Oxide [Mag-Ox] 400 mg PO QDAY #30 tablet 05/19/18 09/27/19 Unknown Rx Spironolactone [Aldactone] 25 mg PO QDAY #30 tablet 05/19/18 09/27/19 Unknown Rx Tamsulosin [Flomax] 0.4 mg PO QHS #30 capsule 05/19/18 09/27/19 Unknown Rx carvediloL [Coreg] 3.125 mg PO BID #60 tablet 05/19/18 09/27/19 Unknown Rx lisinopriL [Zestril TAB] 5 mg PO QDAY #30 tablet 05/19/18 09/27/19 Unknown Rx Active Meds: Active Medications Aspirin (Aspirin) 325 mg PO QDAY [facility] Last Admin: 09/28/19 09:52 Dose: 325 mg Documented by: Atorvastatin Calcium (Lipitor) 40 mg PO QHS [facility] Last Admin: 09/27/19 22:42 Dose: 40 mg Documented by: Carvedilol (Coreg) 3.125 mg PO BID [facility] Last Admin: 09/28/19 09:53 Dose: 3.125 mg Documented by: Enoxaparin Sodium (Enoxaparin) 40 mg SUB-Q QDAY@2200 [facility] Last Admin: 09/27/19 22:42 Dose: 40 mg Documented by: Famotidine (Pepcid) 20 mg PO BID [facility] Last Admin: 09/28/19 09:54 Dose: 20 mg Documented by: Furosemide (Lasix) 40 mg IV 0600,1800 [facility] Last Admin: 09/28/19 05:33 Dose: 40 mg Documented by: Isosorbide Mononitrate (Imdur) 30 mg PO QDAY [facility] Last Admin: 09/28/19 09:53 Dose: 30 mg Documented by: Lisinopril (Zestril) 5 mg PO QDAY [facility] Spironolactone (Aldactone) 25 mg PO QDAY [facility] Last Admin: 09/28/19 09:53 Dose: 25 mg Documented by: Tamsulosin HCl (Flomax) 0.4 mg PO QHS [facility] Last Admin: 09/27/19 22:42 Dose: 0.4 mg Documented by: Physical Examination Vital Signs Pulse Resp BP Pulse Ox 97 H 29 H 154/109 95 09/27/19 06:48 09/27/19 06:48 09/27/19 06:48 09/27/19 06:48 Narrative exam: Deferred due to isolation protocol. Results 09/28/19 04:13 09/28/19 04:13 Cardiac Enzymes 09/28/19 Range/Units 04:13 AST 32 (5-40) units/L CBC 09/28/19 Range/Units 04:13 WBC 4.9 (4.5-11.0) K/mm3 RBC 4.69 (3.65-5.03) M/mm3 Hgb 14.1 (11.8-15.2) gm/dl Hct 41.7 (35.5-45.6) % Plt Count 253 (140-440) K/mm3 Comprehensive Metabolic Panel 09/28/19 Range/Units 04:13 Sodium 138 (137-145) mmol/L Potassium 3.7 (3.6-5.0) mmol/L Chloride 101.2 (98-107) mmol/L Carbon Dioxide 25 (22-30) mmol/L BUN 14 (9-20) mg/dL Creatinine 1.1 (0.8-1.3) mg/dL Glucose 119 H (75-100) mg/dL Calcium 8.8 (8.4-10.2) mg/dL AST 32 (5-40) units/L ALT 34 (7-56) units/L Alkaline Phosphatase 56 (35-129) units/L Total Protein 5.9 L (6.3-8.2) g/dL Albumin 3.2 L (3.9-5) g/dL Assessment and Plan Acute on chronic systolic heart failure Nonischemic cardiomyopathy 12/2017 [facility] findings: 1. Small vessel coronary artery disease. 2. Ejection fraction 10%. 06/2018 Echo LVEF 20-25% previously declined ICD placement Pneumonia
[2019-09-28] MEDS: LISINOPRIL 5 MG TAB PO SCH (12:25)
--- NOTE | 2019-09-28 17:33 | Cat Scan Report ---
CT angio chest INDICATION: Shortness of breath/elevated D-dimers/evaluate PE. TECHNIQUE: All CT scans at this location are performed using CT dose reduction for ALARA by means of automated e xposure control. COMPARISON: 03/04/2018 FINDINGS: Heart is mildly enlarged but stable. No mediastinal, hilar or axillary adenopathy. Focal parenchymal disease is demonstrated in the right upper lobe and, to a much lesser extent, the r ight lower lobe, most suggestive of pneumonia. No pleural fluid. No evidence of pulmonary embolus. IMPRESSION: 1. Right-sided pneumonia. 2. Negative for pulmonary embolus. Signer Name: Jose Elias Dillard MD Signed: 09/28/2019 5:29 PM Workstation Name: [id number]
[2019-09-28] MEDS: ENOXAPARIN 40 MG/0.4 ML INJ SUB-Q SCH (23:06)
[2019-09-28] MEDS: TAMSULOSIN 0.4 MG CAP PO SCH (23:07)
[2019-09-29] MEDS: FUROSEMIDE 40 MG/4 ML INJ IV SCH (05:00)
[2019-09-29] MEDS: SPIRONOLACTONE 25 MG TAB PO SCH (10:02)
[2019-09-29] MEDS: FAMOTIDINE 20 MG TAB PO SCH (10:02)
[2019-09-29] MEDS: ASPIRIN 325 MG TAB PO SCH (10:02)
[2019-09-29] MEDS: LISINOPRIL 5 MG TAB PO SCH (10:04)
[2019-09-29] MEDS: carvediloL 3.125 MG TAB PO SCH (10:04)
--- NOTE | 2019-09-29 11:02 | Progress Note ---
Assessment and Plan 1. Acute community acquired lobar pneumonia 2. Chronic combined systolic and diastolic heart failure 3. Dilated nonischemic cardiomyopathy LV ejection fraction 15 to 20% 4. Essential hypertension Plan. Cardiac bland stable continue present GDMT. Subjective Date of service: 09/29/19 Interval history: No cardiac symptoms. Objective Vital Signs Temp Pulse Resp BP BP Pulse Ox 09/29/19 10:04 86 91/46 09/29/19 03:46 97.7 F 66 24 91/54 96 09/28/19 20:48 98.3 F 76 20 101/76 99 09/28/19 12:25 88/62 09/28/19 12:00 98.2 F 77 20 88/62 97 - Physical Examination General: Appears Well, No Apparent Distress HEENT: Positive: PERRL, Normocephaly, Mucus Membranes Moist Neck: Positive: neck supple, trachea midline. Negative: JVD/HJR Cardiac: Positive: Regular Rhythm, S1/S2, S3, PMI, Dilated, Laterally Displaced Lungs: Positive: clear to auscultation, No Wheeze, Rales, Rhonchi Neuro: Positive: Grossly Intact Abdomen: Positive: Unremarkable, Soft Extremities: Absent: edema
[2019-09-29 14:45] VITALS: BP 99/69
--- NOTE | 2019-09-29 15:09 | Discharge Summary ---
Providers - Providers Date of Admission: 09/27/19 10:32 Date of discharge: 09/29/19 Attending physician: JENNIFER PAVON 09/28/19 10:35 Consult to Physician [CONS] Routine Comment: Consulting Provider: HERLINDA BOYLE Physician Instructions: Reason For Exam: Acute on chronic systolic CHF/CMP EF 25% Primary care physician: RENAL MEDICINE PHYSICIAN Hospitalization Condition: Fair Hospital course: 64-year-old male patient was admitted with acute on chronic systolic congestive heart failure, dilated cardiomyopathy with ejection fraction of less than 20 High suspicion for COVID, COVID test is negative, and right-sided pneumonia being treated with empiric antibiotics.Follow cardiology recommendations, Patient stable for discharge COVID test negative --High suspicion for COVID-19; test negative Contact and droplet isolation Cover test negative --Right upper lobe pneumonia; Probably community-acquired, Suspicion for COVID pneumonia Empiric antibiotics Rocephin and Zithromax Symptomatically doing well Patient to be discharged on oral antibiotics --Acute on chronic systolic congestive heart failure; EF 20% Managed with IV diuretics, beta-blockers, BETTY inhibitors, nitrates Input output monitoring, low-sodium diet Fluid restriction, cardiology consulted --Nonischemic cardiomyopathy. EF 20% on echo in 2018 Continue anti-failure medications --Elevated D-dimers; CTA chest negative for PE, right-sided pneumonia --Hypertension. Resume antihypertensives, PRN medications --DVT prophylaxis; Lovenox --Medical noncompliance; counseling done Patient advised to comply with medications diet follow-up visits Verbalized understanding --History of BPH; continue tamsulosin --Full CODE STATUS We will closely monitor the patient and adjust management as needed Plan of care reviewed with the patient and his nurse Disposition: DC-01 TO HOME OR SELFCARE Time spent for discharge: 35 minutes - Discharge Diagnoses (1) Pneumonia Status: Acute (2) Suspected 2019 novel coronavirus infection Status: Acute (3) CHF (congestive heart failure) Status: Acute (4) DVT prophylaxis Status: Acute (5) NICM (nonischemic cardiomyopathy) Status: Acute Core Measure Documentation - Palliative Care Palliative Care/ Comfort Measures: Not Applicable - Core Measures Any of the following diagnoses?: none Exam - Constitutional Vitals: Temp Pulse Resp BP Pulse Ox 97.9 F 65 22 99/69 97 09/29/19 11:24 09/29/19 11:24 09/29/19 11:24 09/29/19 11:24 09/29/19 11:24 General appearance: Present: no acute distress, well-nourished - EENT Eyes: Present: PERRL ENT: hearing intact, clear oral mucosa - Neck Neck: Present: supple, normal ROM - Respiratory Respiratory effort: normal Respiratory: bilateral: CTA - Cardiovascular Heart rate: 78 Rhythm: regular Heart Sounds: Present: S1 & S2. Absent: rub, click - Extremities Extremities: no ischemia, pulses intact, pulses symmetrical, No edema Peripheral Pulses: within normal limits - Abdominal General gastrointestinal: Present: soft, non-tender, non-distended, normal bowel sounds Male genitourinary: Present: normal - Integumentary Integumentary: Present: clear, warm, dry - Musculoskeletal Musculoskeletal: gait normal, strength equal bilaterally - Psychiatric Psychiatric: appropriate mood/affect, intact judgment & insight - Neurologic Neurologic: CNII-XII intact, moves all extremities - Allied Health Allied health notes reviewed: nursing, case management Plan Activity: no restrictions Diet: low fat, low cholesterol, low salt Follow up with: PRIMARY CAREMD [Primary Care Provider] - 3-5 Days
[2019-09-30] MEDS ORDERED: FUROSEMIDE 20 MG TAB PO SCH (10:00)
== END 2019-09-29 17:57 | disposition home or self-care (01) ==
LOC: ED 04:28 → 3A 10:32
PROVIDERS: ADMIT Internal Medicine; ATTEND Internal Medicine
DX: R06.02 Shortness of breath (principal); Z20.828 Contact with and (suspected) exposure to other viral communicable diseases; J18.9 Pneumonia, unspecified organism; R74.8 Abnormal levels of other serum enzymes; I11.0 Hypertensive heart disease with heart failure; I50.43 Acute on chronic combined systolic (congestive) and diastolic (congestive) heart failure; I42.8 Other cardiomyopathies; N40.0 Benign prostatic hyperplasia without lower urinary tract symptoms; E78.5 Hyperlipidemia, unspecified; M54.9 Dorsalgia, unspecified; G89.29 Other chronic pain; G43.909 Migraine, unspecified, not intractable, without status migrainosus; F17.210 Nicotine dependence, cigarettes, uncomplicated; Z91.14 Patient's other noncompliance with medication regimen; Z79.899 Other long term (current) drug therapy; Z79.82 Long term (current) use of aspirin
CPT/HCPCS: 36415; 71045; 71275; 80048; 80053; 82550; 82553; 82728; 82947; 83615; 83735; 83880; 84145; 84484; 85007; 85025; 85379; 85610; 86140; 87040; 93005; 96365; 96367; 96372; 96375; 96376; 99285; 99406; A9270; G0378; J0456; J0696; J1650; J1940; J7050; Q9967; U0003

== ENCOUNTER 2019-11-13 10:30 | Inpatient (IN) | payer MEDICAID ==
[2019-11-13] MEDS ORDERED: ETOMIDATE 20 MG/10 ML INJ IV ONE (12:15)
[2019-11-13] MEDS ORDERED: ROCURONIUM 50 MG/5 ML INJ IV ONE (12:15)
[2019-11-13] MEDS ORDERED: SUCCINYLCHOLINE CHLORIDE 200 MG/10 ML INJ MDV ONE (12:15)
[2019-11-13] MEDS ORDERED: IPRATROPIUM/ALBUTEROL SULFATE 3 ML AMPUL.NEB IH ONE (12:26)
--- NOTE | 2019-11-13 13:35 | XRay Report ---
CHEST 1 VIEW INDICATION / CLINICAL INFORMATION: Dyspnea. COMPARISON: 09/27/2019 FINDINGS: SUPPORT DEVICES: None. HEART / MEDIASTINUM: No significant abnormality. LUNGS / PLEURA: Mild pulmonary vascular congestion No pneumothorax. ADDITIONAL FINDINGS: No significant additional findings. IMPRESSION: Mild pulmonary vascular congestion is present. Airspace disease seen in the right upper lobe on 2019 has resolved Signer Name: Nishant Campos MD FACR Signed: 11/13/2019 1:30 PM Workstation Name: [id number]
[2019-11-13 13:38] LABS: Basophils % (Auto) 0.4 % (0.0-1.8); Eosinophils % (Auto) 0.9 % (0.0-4.3); Hematocrit 46.1 % (35.5-45.6); Hemoglobin 15.3 gm/dl (11.8-15.2); Lymphocytes # (Auto) 1.2 K/mm3 (1.2-5.4); Mean Corpuscular HGB Conc 33 % (32-34); Mean Corpuscular Volume 90 fl (84-94); Monocytes # (Auto) 0.5 K/mm3 (0.0-0.8); Monocytes % (Auto) 10.4 % (0.0-7.3); Platelet Count 190 K/mm3 (140-440); Red Blood Count 5.15 M/mm3 (3.65-5.03); Red Cell Distribution Width 15.3 % (13.2-15.2)
[2019-11-13 13:52] LABS: Partial Thromboplastin Time 31.1 Sec. (24.2-36.6)
[2019-11-13 14:17] LABS: Alanine Aminotransferase 35 units/L (7-56); Albumin 3.4 g/dL (3.9-5); BUN/Creatinine Ratio 19; Blood Urea Nitrogen 19 mg/dL (9-20); Calcium 8.8 mg/dL (8.4-10.2); Hemolysis Index 22
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
[2019-11-13] MEDS ORDERED: FUROSEMIDE 40 MG/4 ML INJ IV ONE (15:10)
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
[2019-11-13] MEDS ORDERED: ACETAMINOPHEN 325 MG TAB PO PRN (21:09)
[2019-11-13] MEDS ORDERED: MORPHINE 2 MG/1 ML INJ IV PRN (21:09)
[2019-11-13] MEDS ORDERED: ONDANSETRON 4 MG/2 ML INJ IV PRN (21:09)
[2019-11-13] MEDS ORDERED: HYDROmorphone 1 MG/1 ML INJ IV PRN (21:09)
[2019-11-13] MEDS: HEPARIN 5,000 UNIT/1 ML VIAL SUB-Q SCH (21:50)
[2019-11-14 06:42] LABS: Basophils % (Auto) 0.6 % (0.0-1.8); Eosinophils # (Auto) 0.1 K/mm3 (0.0-0.4); Eosinophils % (Auto) 1.2 % (0.0-4.3); Hematocrit 44.3 % (35.5-45.6); Hemoglobin 14.7 gm/dl (11.8-15.2); Lymphocytes # (Auto) 1.5 K/mm3 (1.2-5.4); Lymphocytes % (Auto) 29.3 % (13.4-35.0); Mean Corpuscular HGB Conc 33 % (32-34); Mean Corpuscular Volume 90 fl (84-94); Monocytes # (Auto) 0.6 K/mm3 (0.0-0.8); Monocytes % (Auto) 11.7 % (0.0-7.3); Platelet Count 188 K/mm3 (140-440); Red Blood Count 4.92 M/mm3 (3.65-5.03); Red Cell Distribution Width 14.9 % (13.2-15.2)
[2019-11-14] MEDS ORDERED: ACETAMINOPHEN 325 MG TAB PO PRN (06:49)
[2019-11-14 06:59] LABS: Alanine Aminotransferase 33 units/L (7-56); Albumin 3.1 g/dL (3.9-5); BUN/Creatinine Ratio 21; Blood Urea Nitrogen 23 mg/dL (9-20); Calcium 8.3 mg/dL (8.4-10.2); Hemolysis Index 15
[2019-11-14] MEDS: oxyCODONE /ACETAMINOPHEN 5-325MG TAB PO PRN ×2 (08:21→23:13)
--- NOTE | 2019-11-14 08:40 | Progress Note ---
Assessment and Plan Assessment and plan: (1) Acute exacerbation of CHF (congestive heart failure) Current Visit: Yes Status: Acute Qualifiers: Heart failure type: combined systolic and diastolic Qualified Code(s): I50.43 - Acute on chronic combined systolic (congestive) and diastolic (congestive) heart failure Plan to address problem: IV Lasix 40 mg every 12 Daily weights Daily intake output Echocardiogram for ejection fraction Cardiology consult (2) Hypertension Current Visit: Yes Status: Chronic Qualifiers: Hypertension type: essential hypertension Qualified Code(s): I10 - Essential (primary) hypertension Plan to address problem: Continue antihypertensives (3) Hyperlipidemia Current Visit: Yes Status: Chronic Qualifiers: Hyperlipidemia type: mixed hyperlipidemia Qualified Code(s): E78.2 - Mixed hyperlipidemia Plan to address problem: Continue statins (4) BPH (benign prostatic hyperplasia) Current Visit: Yes Status: Chronic Qualifiers: Lower urinary tract symptom presence: symptoms present Plan to address problem: Continue Flomax (5) DVT prophylaxis Current Visit: No Status: Acute Plan to address problem: On heparin and GI prophylaxis History Interval history: Patient was seen and evaluated this morning Patient still has shortness of breath and chest pain He is on intranasal oxygen Patient was noncompliant with his medications and has not been followed with cardiology Patient said he lost a significant weight but per our record there is been no change in his weight Hospitalist Physical - Physical exam Narrative exam: Not in cardiopulmonary distress. The patient appeared well nourished and normally developed. Vital signs as documented. Head exam is unremarkable. No scleral icterus . Neck is without jugular venous distension, thyromegaly, or carotid bruits. Lungs are clear to auscultation. Cardiac exam reveals regular rate and Rhythm. Abdominal exam reveals normal bowel sounds, nontender, no organomegaly. Extremities are nonedematous and both femoral and pedal pulses are normal. 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 No focal weakness. - Constitutional Vitals: Temp Pulse Resp BP Pulse Ox 98.1 F 82 24 125/79 98 11/14/19 07:37 11/14/19 07:37 11/14/19 07:37 11/14/19 07:37 11/14/19 07:37 General appearance: Present: mild distress, well-nourished HEART Score - HEART Score Risk factors: 1-2 risk factors Troponin: Troponin T < 0.010 ng/mL (0.00-0.029) 11/13/19 15:06 Troponin: 1-3x normal limit - Critical Actions Critical Actions: 4-6 pts:12-16.6% risk of adverse cardiac event. Should be admitted Results - Labs CBC & Chem 7: 11/14/19 05:14 11/14/19 05:14 Labs: Laboratory Last Values WBC 5.0 K/mm3 (4.5-11.0) 11/14/19 05:14 RBC 4.92 M/mm3 (3.65-5.03) 11/14/19 05:14 Hgb 14.7 gm/dl (11.8-15.2) 11/14/19 05:14 Hct 44.3 % (35.5-45.6) 11/14/19 05:14 MCV 90 fl (84-94) 11/14/19 05:14 MCH 30 pg (28-32) 11/14/19 05:14 MCHC 33 % (32-34) 11/14/19 05:14 RDW 14.9 % (13.2-15.2) 11/14/19 05:14 Plt Count 188 K/mm3 (140-440) 11/14/19 05:14 Lymph % (Auto) 29.3 % (13.4-35.0) 11/14/19 05:14 Posey % (Auto) 11.7 % (0.0-7.3) H 11/14/19 05:14 Eos % (Auto) 1.2 % (0.0-4.3) 11/14/19 05:14 Baso % (Auto) 0.6 % (0.0-1.8) 11/14/19 05:14 Lymph # (Auto) 1.5 K/mm3 (1.2-5.4) 11/14/19 05:14 Posey # (Auto) 0.6 K/mm3 (0.0-0.8) 11/14/19 05:14 Eos # (Auto) 0.1 K/mm3 (0.0-0.4) 11/14/19 05:14 Baso # (Auto) 0.0 K/mm3 (0.0-0.1) 11/14/19 05:14 Seg Neutrophils % 57.2 % (40.0-70.0) 11/14/19 05:14 Seg Neutrophils # 2.9 K/mm3 (1.8-7.7) 11/14/19 05:14 PT 13.4 Sec. (12.2-14.9) 11/13/19 13:03 INR 1.00 (0.87-1.13) 11/13/19 13:03 APTT 31.1 Sec. (24.2-36.6) 11/13/19 13:03 Sodium 141 mmol/L (137-145) 11/14/19 05:14 Potassium 4.0 mmol/L (3.6-5.0) D 11/14/19 05:14 Chloride 104.5 mmol/L (98-107) 11/14/19 05:14 Carbon Dioxide 23 mmol/L (22-30) 11/14/19 05:14 Anion Gap 18 mmol/L 11/14/19 05:14 BUN 23 mg/dL (9-20) H 11/14/19 05:14 Creatinine 1.1 mg/dL (0.8-1.3) 11/14/19 05:14 Estimated GFR > 60 ml/min 11/14/19 05:14 BUN/Creatinine Ratio 21 % 11/14/19 05:14 Glucose 114 mg/dL (75-100) H 11/14/19 05:14 Hemoglobin A1c 5.7 % (4-6) 11/13/19 13:03 Lactic Acid 1.60 mmol/L (0.7-2.0) 11/13/19 13:03 Calcium 8.3 mg/dL (8.4-10.2) L 11/14/19 05:14 Magnesium 2.30 mg/dL (1.7-2.3) 11/13/19 13:03 Total Bilirubin 0.60 mg/dL (0.1-1.2) 11/14/19 05:14 AST 18 units/L (5-40) 11/14/19 05:14 ALT 33 units/L (7-56) 11/14/19 05:14 Alkaline Phosphatase 61 units/L (35-129) 11/14/19 05:14 Troponin T < 0.010 ng/mL (0.00-0.029) 11/13/19 15:06 NT-Pro-B Natriuret Pep 7627 pg/mL (0-900) H 11/13/19 13:03 Total Protein 5.8 g/dL (6.3-8.2) L 11/14/19 05:14 Albumin 3.1 g/dL (3.9-5) L 11/14/19 05:14 Albumin/Globulin Ratio 1.1 % 11/14/19 05:14 Microbiology: Microbiology 11/13/19 13:03 Peripheral/Venous Blood Culture - Preliminary Culture in Progress 11/13/19 13:03 Peripheral/Venous Blood Culture - Preliminary Culture in Progress Active Medications - Current Medications Current Medications: Generic Name Dose Route Start Last Admin Trade Name Freq PRN Reason Stop Dose Admin Acetaminophen 650 mg 11/13/19 21:09 Tylenol PO Q4H PRN Pain MILD(1-3)/Fever >100.5/GARCÍA Aspirin 325 mg 11/14/19 10:00 Aspirin PO QDAY ON LICENSE OF [facility] Atorvastatin Calcium 40 mg 11/14/19 22:00 Lipitor PO QHS ON LICENSE OF [facility] Carvedilol 3.125 mg 11/14/19 10:00 Coreg PO BID ON LICENSE OF [facility] Famotidine 20 mg 11/14/19 10:00 Pepcid PO BID ON LICENSE OF [facility] Furosemide 40 mg 11/14/19 07:00 Lasix IV 0600,1800 ON LICENSE OF [facility] Heparin Sodium (Porcine) 5,000 unit 11/13/19 22:00 11/13/19 21:50 Heparin SUB-Q 5,000 unit Q12HR ON LICENSE OF [facility] Administration Hydromorphone HCl 0.5 mg 11/13/19 21:09 Dilaudid IV Q3H PRN Pain , Severe (7-10) Isosorbide Mononitrate 30 mg 11/14/19 10:00 Imdur PO QDAY ON LICENSE OF [facility] Levofloxacin 750 mg 11/14/19 10:00 Levaquin PO QDAY ON LICENSE OF [facility] Magnesium Oxide 400 mg 11/14/19 10:00 Mag-Ox PO QDAY ON LICENSE OF [facility] Morphine Sulfate 2 mg 11/13/19 21:09 Morphine IV Q4H PRN Pain, Moderate (4-6) Ondansetron HCl 4 mg 11/13/19 21:09 Zofran IV Q8H PRN Nausea And Vomiting Oxycodone/Acetaminophen 1 tab 11/13/19 21:09 11/14/19 08:21 Percocet 5/325 PO 1 tab Q6H PRN Administration Pain, Moderate (4-6) Potassium Chloride 20 meq 11/14/19 10:00 K-Dur PO BID CHIKI Prednisone 10 mg 11/14/19 10:00 Deltasone PO QDAY [facility] Sodium Chloride 10 ml 11/13/19 22:00 11/13/19 22:30 Sodium Chloride Flush Syringe 10 Ml IV 10 ml BID CHIKI Administration Sodium Chloride 10 ml 11/13/19 21:09 Sodium Chloride Flush Syringe 10 Ml IV PRN PRN LINE FLUSH Spironolactone 25 mg 11/14/19 10:00 Aldactone PO QDAY [facility] Tamsulosin HCl 0.4 mg 11/14/19 22:00 Flomax PO QHS CHIKI
[2019-11-14] MEDS ORDERED: predniSONE 10 MG TAB PO SCH (10:00)
[2019-11-14] MEDS ORDERED: POTASSIUM CHLORIDE ER 20 MEQ TAB PO SCH (10:00)
[2019-11-14] MEDS ORDERED: HEPARIN 5,000 UNIT/1 ML VIAL SUB-Q SCH (10:00)
[2019-11-14] MEDS: carvediloL 3.125 MG TAB PO SCH ×2 (10:14→23:12)
[2019-11-14] MEDS: LISINOPRIL 5 MG TAB PO SCH (10:15)
[2019-11-14] MEDS: SPIRONOLACTONE 25 MG TAB PO SCH (10:15)
[2019-11-14] MEDS: FUROSEMIDE 40 MG/4 ML INJ IV SCH ×2 (10:15→17:31)
[2019-11-14] MEDS: FAMOTIDINE 20 MG TAB PO SCH ×2 (10:15→23:12)
[2019-11-14] MEDS: ASPIRIN 325 MG TAB PO SCH (10:15)
[2019-11-14] MEDS: HEPARIN 5,000 UNIT/1 ML VIAL SUB-Q SCH ×2 (10:15→22:30)
[2019-11-14] MEDS: levoFLOXacin 750 MG TAB PO SCH (10:15)
[2019-11-14] MEDS: MAGNESIUM OXIDE 400 MG TAB PO SCH (10:18)
--- NOTE | 2019-11-14 10:42 | Consultation ---
<REBECCA LONGORIA - Last Filed: 11/14/19 10:43> History of Present Illness Consult date: 11/14/19 Consult reason: congestive heart failure History of present illness: This is a 64-year old male that has a history of severe dilated nonischemic cardiomyopathy and chronic systolic heart failure. In 2018 he underwent a cardiac cath that showed small vessel coronary disease recommended for medical therapy. Ejection fraction 10%. A repeat echocardiogram done a year ago showed persistent cardiomyopathy, ejection fraction 15-20%. As an outpatient, he was recommended for an ICD placement but declined and wishes to pursue medical therapy. Patient was admitted with shortness of breath. Chest x-ray shows mild interstitial edema. Patient admits to noncompliance with medical therapy and dietary restrictions since he was discharge from this hospital 2 months ago. A cardiology consultation has been requested for management of CHF. Medications and Allergies Allergies Allergy/AdvReac Type Severity Reaction Status Date / Time No Known Allergies Allergy Verified 01/09/14 03:24 Home Medications Medication Instructions Recorded Confirmed Last Taken Type Acetaminophen [Acetaminophen TAB] 650 mg PO Q4H PRN #15 tablet 05/19/18 11/14/19 Unknown Rx Aspirin 325 mg PO QDAY #30 tablet 05/19/18 11/14/19 Unknown Rx AtorvaSTATin [Lipitor] 40 mg PO QHS #30 tablet 05/19/18 11/14/19 Unknown Rx HYDROcodone/APAP 5-325 [[place] 1 each PO Q6H PRN #20 tablet 05/19/18 11/14/19 Unknown Rx 5-325 mg TAB] carvediloL [Coreg] 3.125 mg PO BID #60 tablet 05/19/18 11/14/19 Unknown Rx Famotidine [Pepcid] 20 mg PO BID #60 tablet 09/29/19 11/14/19 Unknown Rx Furosemide [Lasix TAB] 40 mg PO QDAY #60 tablet 09/29/19 11/14/19 Unknown Rx ISOSORBIDE MONOnitrate [Imdur ER] 30 mg PO QDAY #30 tablet 09/29/19 11/14/19 Unknown Rx Magnesium Oxide [Mag-Ox] 400 mg PO QDAY #30 tablet 09/29/19 11/14/19 Unknown Rx Spironolactone [Aldactone] 25 mg PO QDAY #30 tablet 09/29/19 11/14/19 Unknown Rx Tamsulosin [Flomax] 0.4 mg PO QHS #30 capsule 09/29/19 11/14/19 Unknown Rx levoFLOXacin [Levaquin] 750 mg PO QDAY #14 tablet 09/29/19 11/14/19 Unknown Rx predniSONE [Deltasone] 10 mg PO QDAY #5 tab 09/29/19 11/14/19 Unknown Rx Active Meds: Active Medications Acetaminophen (Tylenol) 650 mg PO Q4H PRN PRN Reason: Pain MILD(1-3)/Fever >100.5/GARCÍA Aspirin (Aspirin) 325 mg PO QDAY [facility] Last Admin: 11/14/19 10:15 Dose: 325 mg Documented by: Atorvastatin Calcium (Lipitor) 40 mg PO QHS [facility] Carvedilol (Coreg) 3.125 mg PO BID [facility] Last Admin: 11/14/19 10:14 Dose: 3.125 mg Documented by: Famotidine (Pepcid) 20 mg PO BID [facility] Last Admin: 11/14/19 10:15 Dose: 20 mg Documented by: Furosemide (Lasix) 40 mg IV 0600,1800 [facility] Last Admin: 11/14/19 10:15 Dose: 40 mg Documented by: Heparin Sodium (Porcine) (Heparin) 5,000 unit SUB-Q Q12HR [facility] Last Admin: 11/14/19 10:15 Dose: 5,000 unit Documented by: Hydromorphone HCl (Dilaudid) 0.5 mg IV Q3H PRN PRN Reason: Pain , Severe (7-10) Isosorbide Mononitrate (Imdur) 30 mg PO QDAY [facility] Last Admin: 11/14/19 10:15 Dose: 30 mg Documented by: Levofloxacin (Levaquin) 750 mg PO QDAY [facility] Last Admin: 11/14/19 10:15 Dose: 750 mg Documented by: Lisinopril (Zestril) 5 mg PO QDAY [facility] Last Admin: 11/14/19 10:15 Dose: 5 mg Documented by: Magnesium Oxide (Mag-Ox) 400 mg PO QDAY [facility] Last Admin: 11/14/19 10:18 Dose: 400 mg Documented by: Morphine Sulfate (Morphine) 2 mg IV Q4H PRN PRN Reason: Pain, Moderate (4-6) Ondansetron HCl (Zofran) 4 mg IV Q8H PRN PRN Reason: Nausea And Vomiting Oxycodone/Acetaminophen (Percocet 5/325) 1 tab PO Q6H PRN PRN Reason: Pain, Moderate (4-6) Last Admin: 11/14/19 08:21 Dose: 1 tab Documented by: Sodium Chloride (Sodium Chloride Flush Syringe 10 Ml) 10 ml IV BID [facility] Last Admin: 11/14/19 10:16 Dose: 10 ml Documented by: Sodium Chloride (Sodium Chloride Flush Syringe 10 Ml) 10 ml IV PRN PRN PRN Reason: LINE FLUSH Spironolactone (Aldactone) 25 mg PO QDAY [facility] Last Admin: 11/14/19 10:15 Dose: 25 mg Documented by: Tamsulosin HCl (Flomax) 0.4 mg PO QHS [facility] Physical Examination Vital Signs Temp Pulse Resp BP Pulse Ox 98.2 F 86 18 156/102 100 11/13/19 10:43 11/13/19 10:43 11/13/19 10:43 11/13/19 10:43 11/13/19 10:43 General appearance: no acute distress HEENT: Positive: PERRL Neck: Positive: trachea midline Cardiac: Positive: Reg Rate and Rhythm Lungs: Positive: Decreased Breath Sounds Neuro: Positive: Grossly Intact Extremities: Absent: edema Results 11/14/19 05:14 11/14/19 05:14 Cardiac Enzymes 11/13/19 11/14/19 Range/Units 13:03 05:14 AST 19 18 (5-40) units/L Coagulation 11/13/19 Range/Units 13:03 PT 13.4 (12.2-14.9) Sec. INR 1.00 (0.87-1.13) APTT 31.1 (24.2-36.6) Sec. CBC 11/13/19 11/14/19 Range/Units 13:03 05:14 WBC 4.7 5.0 (4.5-11.0) K/mm3 RBC 5.15 H 4.92 (3.65-5.03) M/mm3 Hgb 15.3 H 14.7 (11.8-15.2) gm/dl Hct 46.1 H 44.3 (35.5-45.6) % Plt Count 190 188 (140-440) K/mm3 Lymph # (Auto) 1.2 1.5 (1.2-5.4) K/mm3 Bland # (Auto) 0.5 0.6 (0.0-0.8) K/mm3 Eos # (Auto) 0.0 0.1 (0.0-0.4) K/mm3 Baso # (Auto) 0.0 0.0 (0.0-0.1) K/mm3 Comprehensive Metabolic Panel 11/13/19 11/14/19 Range/Units 13:03 05:14 Sodium 142 141 (137-145) mmol/L Potassium 5.2 H 4.0 D (3.6-5.0) mmol/L Chloride 107.3 H 104.5 (98-107) mmol/L Carbon Dioxide 20 L 23 (22-30) mmol/L BUN 19 23 H (9-20) mg/dL Creatinine 1.0 1.1 (0.8-1.3) mg/dL Glucose 86 114 H (75-100) mg/dL Calcium 8.8 8.3 L (8.4-10.2) mg/dL AST 19 18 (5-40) units/L ALT 35 33 (7-56) units/L Alkaline Phosphatase 63 61 (35-129) units/L Total Protein 6.4 5.8 L (6.3-8.2) g/dL Albumin 3.4 L 3.1 L (3.9-5) g/dL Assessment and Plan Chronic systolic heart failure s/t to noncompliance with outpatient medical therapy Nonischemic cardiomyopathy 12/2017 [facility] findings: 1. Small vessel coronary artery disease. 2. Ejection fraction 10%. 06/2018 Echo LVEF 20-25% previously declined ICD placement Recommendations: Advised compliance with medical therapy and outpatient dietary restrictions. Resume medical therapy for chronic systolic heart failure and small vessel coronary artery disease. Otherwise, conservative cardiac management. <KIRILL SMITH Last Filed: 11/15/19 21:04> History of Present Illness History of present illness: I SAW THIS PT & AGREE WITH THE Dx & Tx PLAN Medications and Allergies Active Meds: Active Medications Acetaminophen (Tylenol) 650 mg PO Q4H PRN PRN Reason: Pain MILD(1-3)/Fever >100.5/GARCÍA Aspirin (Aspirin) 325 mg PO QDAY [facility] Last Admin: 11/15/19 09:28 Dose: 325 mg Documented by: Atorvastatin Calcium (Lipitor) 40 mg PO QHS [facility] Last Admin: 11/14/19 22:00 Dose: 40 mg Documented by: Carvedilol (Coreg) 3.125 mg PO BID [facility] Last Admin: 11/15/19 09:28 Dose: Not Given Documented by: Famotidine (Pepcid) 20 mg PO BID [facility] Last Admin: 11/15/19 09:27 Dose: 20 mg Documented by: Furosemide (Lasix) 40 mg IV 0600,1800 [facility] Last Admin: 11/15/19 17:17 Dose: Not Given Documented by: Heparin Sodium (Porcine) (Heparin) 5,000 unit SUB-Q Q12HR [facility] Last Admin: 11/15/19 09:28 Dose: 5,000 unit Documented by: Hydromorphone HCl (Dilaudid) 0.5 mg IV Q3H PRN PRN Reason: Pain , Severe (7-10) Levofloxacin (Levaquin) 750 mg PO QDAY [facility] Last Admin: 11/15/19 09:27 Dose: 750 mg Documented by: Lisinopril (Zestril) 5 mg PO QDAY [facility] Last Admin: 11/15/19 10:46 Dose: Not Given Documented by: Magnesium Oxide (Mag-Ox) 400 mg PO QDAY [facility] Last Admin: 11/15/19 09:27 Dose: 400 mg Documented by: Morphine Sulfate (Morphine) 2 mg IV Q4H PRN PRN Reason: Pain, Moderate (4-6) Ondansetron HCl (Zofran) 4 mg IV Q8H PRN PRN Reason: Nausea And Vomiting Oxycodone/Acetaminophen (Percocet 5/325) 1 tab PO Q6H PRN PRN Reason: Pain, Moderate (4-6) Last Admin: 11/14/19 23:13 Dose: 1 tab Documented by: Sodium Chloride (Sodium Chloride Flush Syringe 10 Ml) 10 ml IV BID [facility] Last Admin: 11/15/19 09:29 Dose: 10 ml Documented by: Sodium Chloride (Sodium Chloride Flush Syringe 10 Ml) 10 ml IV PRN PRN PRN Reason: LINE FLUSH Spironolactone (Aldactone) 25 mg PO QDAY [facility] Last Admin: 11/15/19 09:28 Dose: Not Given Documented by: Tamsulosin HCl (Flomax) 0.4 mg PO QHS [facility] Last Admin: 11/14/19 23:13 Dose: 0.4 mg Documented by: Physical Examination Vital Signs Temp Pulse Resp BP Pulse Ox 98.2 F 86 18 156/102 100 11/13/19 10:43 11/13/19 10:43 11/13/19 10:43 11/13/19 10:43 11/13/19 10:43 Results 11/14/19 05:14 11/15/19 07:13 Comprehensive Metabolic Panel 11/15/19 Range/Units 07:13 Sodium 138 (137-145) mmol/L Potassium 3.6 (3.6-5.0) mmol/L Chloride 102.0 (98-107) mmol/L Carbon Dioxide 24 (22-30) mmol/L BUN 18 (9-20) mg/dL Creatinine 1.0 (0.8-1.3) mg/dL Glucose 103 H (75-100) mg/dL Calcium 8.7 (8.4-10.2) mg/dL
[2019-11-14] MEDS: TAMSULOSIN 0.4 MG CAP PO SCH (23:13)
[2019-11-15 08:25] LABS: BUN/Creatinine Ratio 18; Blood Urea Nitrogen 18 mg/dL (9-20); Calcium 8.7 mg/dL (8.4-10.2); Hemolysis Index 9
[2019-11-15] MEDS: MAGNESIUM OXIDE 400 MG TAB PO SCH (09:27)
[2019-11-15] MEDS: levoFLOXacin 750 MG TAB PO SCH (09:27)
[2019-11-15] MEDS: FAMOTIDINE 20 MG TAB PO SCH ×2 (09:27→21:47)
[2019-11-15] MEDS: HEPARIN 5,000 UNIT/1 ML VIAL SUB-Q SCH ×2 (09:28→21:47)
[2019-11-15] MEDS: ASPIRIN 325 MG TAB PO SCH (09:28)
[2019-11-15] MEDS: SPIRONOLACTONE 25 MG TAB PO SCH (09:28)
[2019-11-15] MEDS: carvediloL 3.125 MG TAB PO SCH ×2 (09:28→21:47)
[2019-11-15] MEDS: LISINOPRIL 5 MG TAB PO SCH (10:46)
--- NOTE | 2019-11-15 12:12 | Progress Note ---
<REBECCA LONGORIA - Last Filed: 11/15/19 12:09> Assessment and Plan Chronic systolic heart failure s/t to noncompliance with outpatient medical therapy Nonischemic cardiomyopathy 12/2017 [facility] findings: 1. Small vessel coronary artery disease. 2. Ejection fraction 10%. 06/2018 Echo LVEF 20-25% previously declined ICD placement Recommendations: Advised compliance with medical therapy and outpatient dietary restrictions. Continue medical therapy for chronic systolic heart failure and small vessel coronary artery disease. Due to borderline low BP will hold nitrates. Otherwise, conservative cardiac management. Subjective Date of service: 11/15/19 Interval history: Patient appears well. Reports his breathing has improved. Nurse reports systolic BP ranging in the 90s this morning. Patient remains asymptomatic. Objective Vital Signs Temp Pulse Resp Resp BP Pulse Ox 11/15/19 09:29 71 93/45 11/15/19 09:28 71 93/45 11/15/19 08:58 97.6 F 71 18 93/45 97 11/15/19 04:02 97.5 F L 64 18 108/77 93 11/15/19 00:13 20 11/14/19 23:27 97.4 F L 18 109/77 11/14/19 23:12 71 112/71 11/14/19 22:00 73 20 11/14/19 19:25 97.8 F 68 18 112/70 95 11/14/19 16:03 97.8 F 71 22 112/78 93 11/14/19 12:41 98.0 F 55 L 28 H 104/58 94 - Physical Examination General: No Apparent Distress HEENT: Positive: PERRL Neck: Positive: trachea midline Cardiac: Positive: Reg Rate and Rhythm Lungs: Positive: Decreased Breath Sounds Neuro: Positive: Grossly Intact Extremities: Absent: edema - Labs and Meds Comprehensive Metabolic Panel 11/15/19 Range/Units 07:13 Sodium 138 (137-145) mmol/L Potassium 3.6 (3.6-5.0) mmol/L Chloride 102.0 (98-107) mmol/L Carbon Dioxide 24 (22-30) mmol/L BUN 18 (9-20) mg/dL Creatinine 1.0 (0.8-1.3) mg/dL Glucose 103 H (75-100) mg/dL Calcium 8.7 (8.4-10.2) mg/dL - Imaging and Cardiology EKG: report reviewed <KIRILL SMITH - Last Filed: 11/15/19 20:59> Subjective Interval history: I SAW THIS PT & AGREE WITH THE Dx & Tx PLAN Objective Vital Signs Temp Pulse Resp Resp BP Pulse Ox 11/15/19 20:23 98.9 F 65 18 127/78 96 11/15/19 15:45 98.4 F 59 L 18 125/68 90 11/15/19 11:32 95/60 11/15/19 09:29 71 93/45 11/15/19 09:28 71 93/45 11/15/19 08:58 97.6 F 71 18 93/45 97 11/15/19 04:02 97.5 F L 64 18 108/77 93 11/15/19 00:13 20 11/14/19 23:27 97.4 F L 18 109/77 11/14/19 23:12 71 112/71 11/14/19 22:00 73 20 - Labs and Meds Comprehensive Metabolic Panel 11/15/19 Range/Units 07:13 Sodium 138 (137-145) mmol/L Potassium 3.6 (3.6-5.0) mmol/L Chloride 102.0 (98-107) mmol/L Carbon Dioxide 24 (22-30) mmol/L BUN 18 (9-20) mg/dL Creatinine 1.0 (0.8-1.3) mg/dL Glucose 103 H (75-100) mg/dL Calcium 8.7 (8.4-10.2) mg/dL
--- NOTE | 2019-11-15 14:47 | Progress Note ---
Assessment and Plan Assessment and plan: Right upper lobe pneumonia -Patient is on IV Levaquin (1) Acute exacerbation of CHF (congestive heart failure) Current Visit: Yes Status: Acute Qualifiers: Heart failure type: combined systolic and diastolic Qualified Code(s): I50.43 - Acute on chronic combined systolic (congestive) and diastolic (congestive) heart failure Plan to address problem: IV Lasix 40 mg every 12 Daily weights Daily intake output Echocardiogram for ejection fraction Cardiology consult appreciated Nitrate held because of hypotension Patient declined ICD placement before (2) Hypertension Current Visit: Yes Status: Chronic Qualifiers: Hypertension type: essential hypertension Qualified Code(s): I10 - Essential (primary) hypertension Plan to address problem: Continue antihypertensives (3) Hyperlipidemia Current Visit: Yes Status: Chronic Qualifiers: Hyperlipidemia type: mixed hyperlipidemia Qualified Code(s): E78.2 - Mixed hyperlipidemia Plan to address problem: Continue statins (4) BPH (benign prostatic hyperplasia) Current Visit: Yes Status: Chronic Qualifiers: Lower urinary tract symptom presence: symptoms present Plan to address problem: Continue Flomax (5) DVT prophylaxis Current Visit: No Status: Acute Plan to address problem: On heparin and GI prophylaxis History Interval history: Patient was seen and evaluated this morning Patient is off oxygen Patient is complaining generalized weakness Patient has low BP Hospitalist Physical - Physical exam Narrative exam: Not in cardiopulmonary distress. The patient appeared well nourished and normally developed. Vital signs as documented. Head exam is unremarkable. No scleral icterus . Neck is without jugular venous distension, thyromegaly, or carotid bruits. Lungs are clear to auscultation. Cardiac exam reveals regular rate and Rhythm. Abdominal exam reveals normal bowel sounds, nontender, no organomegaly. Extremities are nonedematous and both femoral and pedal pulses are normal. FACILITY EXAMINER: Alert and oriented 3. No focal weakness. - Constitutional Vitals: Temp Pulse Resp BP Pulse Ox 97.6 F 71 18 93/45 97 11/15/19 08:58 11/15/19 09:29 11/15/19 08:58 11/15/19 09:29 11/15/19 08:58 General appearance: Present: mild distress, well-nourished HEART Score - HEART Score Risk factors: 1-2 risk factors Troponin: Troponin T < 0.010 ng/mL (0.00-0.029) 11/13/19 15:06 Troponin: 1-3x normal limit - Critical Actions Critical Actions: 4-6 pts:12-16.6% risk of adverse cardiac event. Should be admitted Results - Labs CBC & Chem 7: 11/14/19 05:14 11/15/19 07:13 Labs: Laboratory Last Values WBC 5.0 K/mm3 (4.5-11.0) 11/14/19 05:14 RBC 4.92 M/mm3 (3.65-5.03) 11/14/19 05:14 Hgb 14.7 gm/dl (11.8-15.2) 11/14/19 05:14 Hct 44.3 % (35.5-45.6) 11/14/19 05:14 MCV 90 fl (84-94) 11/14/19 05:14 MCH 30 pg (28-32) 11/14/19 05:14 MCHC 33 % (32-34) 11/14/19 05:14 RDW 14.9 % (13.2-15.2) 11/14/19 05:14 Plt Count 188 K/mm3 (140-440) 11/14/19 05:14 Lymph % (Auto) 29.3 % (13.4-35.0) 11/14/19 05:14 [place] % (Auto) 11.7 % (0.0-7.3) H 11/14/19 05:14 Eos % (Auto) 1.2 % (0.0-4.3) 11/14/19 05:14 Baso % (Auto) 0.6 % (0.0-1.8) 11/14/19 05:14 Lymph # (Auto) 1.5 K/mm3 (1.2-5.4) 11/14/19 05:14 [place] # (Auto) 0.6 K/mm3 (0.0-0.8) 11/14/19 05:14 Eos # (Auto) 0.1 K/mm3 (0.0-0.4) 11/14/19 05:14 Baso # (Auto) 0.0 K/mm3 (0.0-0.1) 11/14/19 05:14 Seg Neutrophils % 57.2 % (40.0-70.0) 11/14/19 05:14 Seg Neutrophils # 2.9 K/mm3 (1.8-7.7) 11/14/19 05:14 PT 13.4 Sec. (12.2-14.9) 11/13/19 13:03 INR 1.00 (0.87-1.13) 11/13/19 13:03 APTT 31.1 Sec. (24.2-36.6) 11/13/19 13:03 Sodium 138 mmol/L (137-145) 11/15/19 07:13 Potassium 3.6 mmol/L (3.6-5.0) 11/15/19 07:13 Chloride 102.0 mmol/L (98-107) 11/15/19 07:13 Carbon Dioxide 24 mmol/L (22-30) 11/15/19 07:13 Anion Gap 16 mmol/L 11/15/19 07:13 BUN 18 mg/dL (9-20) 11/15/19 07:13 Creatinine 1.0 mg/dL (0.8-1.3) 11/15/19 07:13 Estimated GFR > 60 ml/min 11/15/19 07:13 BUN/Creatinine Ratio 18 % 11/15/19 07:13 Glucose 103 mg/dL (75-100) H 11/15/19 07:13 Hemoglobin A1c 5.7 % (4-6) 11/13/19 13:03 Lactic Acid 1.60 mmol/L (0.7-2.0) 11/13/19 13:03 Calcium 8.7 mg/dL (8.4-10.2) 11/15/19 07:13 Magnesium 2.30 mg/dL (1.7-2.3) 11/13/19 13:03 Total Bilirubin 0.60 mg/dL (0.1-1.2) 11/14/19 05:14 AST 18 units/L (5-40) 11/14/19 05:14 ALT 33 units/L (7-56) 11/14/19 05:14 Alkaline Phosphatase 61 units/L (35-129) 11/14/19 05:14 Troponin T < 0.010 ng/mL (0.00-0.029) 11/13/19 15:06 NT-Pro-B Natriuret Pep 7627 pg/mL (0-900) H 11/13/19 13:03 Total Protein 5.8 g/dL (6.3-8.2) L 11/14/19 05:14 Albumin 3.1 g/dL (3.9-5) L 11/14/19 05:14 Albumin/Globulin Ratio 1.1 % 11/14/19 05:14 Nasal Screen MRSA (PCR) Negative (Negative) 11/14/19 Unknown Microbiology: Microbiology 11/13/19 13:03 Peripheral/Venous Blood Culture - Preliminary NO GROWTH AFTER 48 HOURS 11/13/19 13:03 Peripheral/Venous Blood Culture - Preliminary NO GROWTH AFTER 48 HOURS Campos/IV: Voiding Method Toilet IV Catheter Type [Left Hand] INT / Saline Lock Active Medications - Current Medications Current Medications: Generic Name Dose Route Start Last Admin Trade Name Freq PRN Reason Stop Dose Admin Acetaminophen 650 mg 11/13/19 21:09 Tylenol PO Q4H PRN Pain MILD(1-3)/Fever >100.5/GARCÍA Aspirin 325 mg 11/14/19 10:00 11/15/19 09:28 Aspirin PO 325 mg QDAY CHIKI Administration Atorvastatin Calcium 40 mg 11/14/19 22:00 11/14/19 22:00 Lipitor PO 40 mg QHS CHIKI Administration Carvedilol 3.125 mg 11/14/19 10:00 11/15/19 09:28 Coreg PO Not Given BID CHIKI Famotidine 20 mg 11/14/19 10:00 11/15/19 09:27 Pepcid PO 20 mg BID CHIKI Administration Furosemide 40 mg 11/14/19 07:00 11/14/19 17:31 Lasix IV 40 mg 0600,1800 CHIKI Administration Heparin Sodium (Porcine) 5,000 unit 11/13/19 22:00 11/15/19 09:28 Heparin SUB-Q 5,000 unit Q12HR CHIKI Administration Hydromorphone HCl 0.5 mg 11/13/19 21:09 Dilaudid IV Q3H PRN Pain , Severe (7-10) Levofloxacin 750 mg 11/14/19 10:00 11/15/19 09:27 Levaquin PO 750 mg QDAY CHIKI Administration Lisinopril 5 mg 11/14/19 10:00 11/14/19 10:15 Zestril PO 5 mg QDAY CHIKI Administration Magnesium Oxide 400 mg 11/14/19 10:00 11/15/19 09:27 Mag-Ox PO 400 mg QDAY CHIKI Administration Morphine Sulfate 2 mg 11/13/19 21:09 Morphine IV Q4H PRN Pain, Moderate (4-6) Ondansetron HCl 4 mg 11/13/19 21:09 Zofran IV Q8H PRN Nausea And Vomiting Oxycodone/Acetaminophen 1 tab 11/13/19 21:09 11/14/19 23:13 Percocet 5/325 PO 1 tab Q6H PRN Administration Pain, Moderate (4-6) Sodium Chloride 10 ml 11/13/19 22:00 11/15/19 09:29 Sodium Chloride Flush Syringe 10 Ml IV 10 ml BID CHIKI Administration Sodium Chloride 10 ml 11/13/19 21:09 Sodium Chloride Flush Syringe 10 Ml IV PRN PRN LINE FLUSH Spironolactone 25 mg 11/14/19 10:00 11/15/19 09:28 Aldactone PO Not Given QDAY CHIKI Tamsulosin HCl 0.4 mg 11/14/19 22:00 11/14/19 23:13 Flomax PO 0.4 mg QHS CHIKI Administration
[2019-11-15] MEDS: FUROSEMIDE 40 MG/4 ML INJ IV SCH (17:17)
[2019-11-15] MEDS: TAMSULOSIN 0.4 MG CAP PO SCH (21:46)
[2019-11-16] MEDS: FUROSEMIDE 40 MG/4 ML INJ IV SCH ×3 (06:02→17:36)
--- NOTE | 2019-11-16 08:29 | Progress Note ---
Assessment and Plan Assessment and plan: Right upper lobe pneumonia -Patient is on IV Levaquin (1) Acute exacerbation of CHF (congestive heart failure) Current Visit: Yes Status: Acute Qualifiers: Heart failure type: combined systolic and diastolic Qualified Code(s): I50.43 - Acute on chronic combined systolic (congestive) and diastolic (congestive) heart failure Plan to address problem: IV Lasix 40 mg every 12 Daily weights Daily intake output Echocardiogram for ejection fraction Cardiology consult appreciated Nitrate held because of hypotension Patient declined ICD placement before (2) Hypotension Current Visit: Yes Status: Chronic Qualifiers: Hypertension type: essential hypertension Qualified Code(s): I10 - Essential (primary) hypertension Plan to address problem: Held nitrates Decrease the dose of lisinopril to 2.5 (3) Hyperlipidemia Current Visit: Yes Status: Chronic Qualifiers: Hyperlipidemia type: mixed hyperlipidemia Qualified Code(s): E78.2 - Mixed hyperlipidemia Plan to address problem: Continue statins (4) BPH (benign prostatic hyperplasia) Current Visit: Yes Status: Chronic Qualifiers: Lower urinary tract symptom presence: symptoms present Plan to address problem: Continue Flomax (5) DVT prophylaxis Current Visit: No Status: Acute Plan to address problem: On heparin and GI prophylaxis History Interval history: Patient was seen and evaluated this morning Patient is off oxygen Patient is complaining generalized weakness Patient has low BP Hospitalist Physical - Physical exam Narrative exam: Not in cardiopulmonary distress. The patient appeared well nourished and normally developed. Vital signs as documented. Head exam is unremarkable. No scleral icterus . Neck is without jugular venous distension, thyromegaly, or carotid bruits. Lungs are clear to auscultation. Cardiac exam reveals regular rate and Rhythm. Abdominal exam reveals normal bowel sounds, nontender, no organomegaly. Extremities are nonedematous and both femoral and pedal pulses are normal. MASS COMMUNICATIONS INSTRUCTOR: Alert and oriented 3. No focal weakness. - Constitutional Vitals: Temp Pulse Resp BP Pulse Ox 97.7 F 78 18 106/55 98 11/16/19 04:56 11/16/19 00:17 11/16/19 04:56 11/16/19 04:58 11/16/19 00:17 General appearance: Present: mild distress, well-nourished HEART Score - HEART Score Risk factors: 1-2 risk factors Troponin: Troponin T < 0.010 ng/mL (0.00-0.029) 11/13/19 15:06 Troponin: 1-3x normal limit - Critical Actions Critical Actions: 4-6 pts:12-16.6% risk of adverse cardiac event. Should be admitted Results - Labs CBC & Chem 7: 11/14/19 05:14 11/16/19 05:06 Labs: Laboratory Last Values WBC 5.0 K/mm3 (4.5-11.0) 11/14/19 05:14 RBC 4.92 M/mm3 (3.65-5.03) 11/14/19 05:14 Hgb 14.7 gm/dl (11.8-15.2) 11/14/19 05:14 Hct 44.3 % (35.5-45.6) 11/14/19 05:14 MCV 90 fl (84-94) 11/14/19 05:14 MCH 30 pg (28-32) 11/14/19 05:14 MCHC 33 % (32-34) 11/14/19 05:14 RDW 14.9 % (13.2-15.2) 11/14/19 05:14 Plt Count 188 K/mm3 (140-440) 11/14/19 05:14 Lymph % (Auto) 29.3 % (13.4-35.0) 11/14/19 05:14 [place] % (Auto) 11.7 % (0.0-7.3) H 11/14/19 05:14 Eos % (Auto) 1.2 % (0.0-4.3) 11/14/19 05:14 Baso % (Auto) 0.6 % (0.0-1.8) 11/14/19 05:14 Lymph # (Auto) 1.5 K/mm3 (1.2-5.4) 11/14/19 05:14 [place] # (Auto) 0.6 K/mm3 (0.0-0.8) 11/14/19 05:14 Eos # (Auto) 0.1 K/mm3 (0.0-0.4) 11/14/19 05:14 Baso # (Auto) 0.0 K/mm3 (0.0-0.1) 11/14/19 05:14 Seg Neutrophils % 57.2 % (40.0-70.0) 11/14/19 05:14 Seg Neutrophils # 2.9 K/mm3 (1.8-7.7) 11/14/19 05:14 PT 13.4 Sec. (12.2-14.9) 11/13/19 13:03 INR 1.00 (0.87-1.13) 11/13/19 13:03 APTT 31.1 Sec. (24.2-36.6) 11/13/19 13:03 Sodium 138 mmol/L (137-145) 11/15/19 07:13 Potassium 3.6 mmol/L (3.6-5.0) 11/15/19 07:13 Chloride 102.0 mmol/L (98-107) 11/15/19 07:13 Carbon Dioxide 24 mmol/L (22-30) 11/15/19 07:13 Anion Gap 16 mmol/L 11/15/19 07:13 BUN 18 mg/dL (9-20) 11/15/19 07:13 Creatinine 1.0 mg/dL (0.8-1.3) 11/15/19 07:13 Estimated GFR > 60 ml/min 11/15/19 07:13 BUN/Creatinine Ratio 18 % 11/15/19 07:13 Glucose 103 mg/dL (75-100) H 11/15/19 07:13 POC Glucose 84 (70-105) 11/16/19 00:33 Hemoglobin A1c 5.7 % (4-6) 11/13/19 13:03 Lactic Acid 1.60 mmol/L (0.7-2.0) 11/13/19 13:03 Calcium 8.7 mg/dL (8.4-10.2) 11/15/19 07:13 Magnesium 2.30 mg/dL (1.7-2.3) 11/13/19 13:03 Total Bilirubin 0.60 mg/dL (0.1-1.2) 11/14/19 05:14 AST 18 units/L (5-40) 11/14/19 05:14 ALT 33 units/L (7-56) 11/14/19 05:14 Alkaline Phosphatase 61 units/L (35-129) 11/14/19 05:14 Troponin T < 0.010 ng/mL (0.00-0.029) 11/13/19 15:06 NT-Pro-B Natriuret Pep 7627 pg/mL (0-900) H 11/13/19 13:03 Total Protein 5.8 g/dL (6.3-8.2) L 11/14/19 05:14 Albumin 3.1 g/dL (3.9-5) L 11/14/19 05:14 Albumin/Globulin Ratio 1.1 % 11/14/19 05:14 Nasal Screen MRSA (PCR) Negative (Negative) 11/14/19 Unknown Microbiology: Microbiology 11/13/19 13:03 Peripheral/Venous Blood Culture - Preliminary NO GROWTH AFTER 48 HOURS 11/13/19 13:03 Peripheral/Venous Blood Culture - Preliminary NO GROWTH AFTER 48 HOURS Campos/IV: Voiding Method Toilet IV Catheter Type [Left Hand] INT / Saline Lock Active Medications - Current Medications Current Medications: Generic Name Dose Route Start Last Admin Trade Name Freq PRN Reason Stop Dose Admin Acetaminophen 650 mg 11/13/19 21:09 Tylenol PO Q4H PRN Pain MILD(1-3)/Fever >100.5/GARCÍA Aspirin 325 mg 11/14/19 10:00 11/15/19 09:28 Aspirin PO 325 mg QDAY CHIKI Administration Atorvastatin Calcium 40 mg 11/14/19 22:00 11/15/19 21:47 Lipitor PO 40 mg QHS CHIKI Administration Carvedilol 3.125 mg 11/14/19 10:00 11/15/19 21:47 Coreg PO 3.125 mg BID CHIKI Administration Famotidine 20 mg 11/14/19 10:00 11/15/19 21:47 Pepcid PO 20 mg BID CHIKI Administration Furosemide 40 mg 11/14/19 07:00 11/16/19 06:04 Lasix IV Not Given 0600,1800 [facility] Heparin Sodium (Porcine) 5,000 unit 11/13/19 22:00 11/15/19 21:47 Heparin SUB-Q 5,000 unit Q12HR CHIKI Administration Hydromorphone HCl 0.5 mg 11/13/19 21:09 Dilaudid IV Q3H PRN Pain , Severe (7-10) Levofloxacin 750 mg 11/14/19 10:00 11/15/19 09:27 Levaquin PO 750 mg QDAY CHIKI Administration Lisinopril 5 mg 11/14/19 10:00 11/15/19 10:46 Zestril PO Not Given QDAY CHIKI Magnesium Oxide 400 mg 11/14/19 10:00 11/15/19 09:27 Mag-Ox PO 400 mg QDAY CHIKI Administration Morphine Sulfate 2 mg 11/13/19 21:09 Morphine IV Q4H PRN Pain, Moderate (4-6) Ondansetron HCl 4 mg 11/13/19 21:09 Zofran IV Q8H PRN Nausea And Vomiting Oxycodone/Acetaminophen 1 tab 11/13/19 21:09 11/14/19 23:13 Percocet 5/325 PO 1 tab Q6H PRN Administration Pain, Moderate (4-6) Sodium Chloride 10 ml 11/13/19 22:00 11/15/19 21:47 Sodium Chloride Flush Syringe 10 Ml IV 10 ml BID CHIKI Administration Sodium Chloride 10 ml 11/13/19 21:09 Sodium Chloride Flush Syringe 10 Ml IV PRN PRN LINE FLUSH Spironolactone 25 mg 11/14/19 10:00 11/15/19 09:28 Aldactone PO Not Given QDAY CHIKI Tamsulosin HCl 0.4 mg 11/14/19 22:00 11/15/19 21:46 Flomax PO 0.4 mg QHS CHIKI Administration
[2019-11-16 08:43] LABS: BUN/Creatinine Ratio 20; Blood Urea Nitrogen 20 mg/dL (9-20); Calcium 9.2 mg/dL (8.4-10.2); Hemolysis Index 19
[2019-11-16] MEDS: LISINOPRIL 5 MG TAB PO SCH (10:34)
[2019-11-16] MEDS: MAGNESIUM OXIDE 400 MG TAB PO SCH (10:36)
[2019-11-16] MEDS: levoFLOXacin 750 MG TAB PO SCH (10:36)
[2019-11-16] MEDS: HEPARIN 5,000 UNIT/1 ML VIAL SUB-Q SCH ×2 (10:36→21:47)
[2019-11-16] MEDS: carvediloL 3.125 MG TAB PO SCH ×2 (10:36→21:47)
[2019-11-16] MEDS: FAMOTIDINE 20 MG TAB PO SCH ×2 (10:36→21:47)
[2019-11-16] MEDS: SPIRONOLACTONE 25 MG TAB PO SCH (10:36)
[2019-11-16] MEDS: ASPIRIN 325 MG TAB PO SCH (10:36)
--- NOTE | 2019-11-16 11:17 | Progress Note ---
Assessment and Plan Chronic systolic heart failure s/t to noncompliance with outpatient medical therapy Nonischemic cardiomyopathy 12/2017 [facility] findings: 1. Small vessel coronary artery disease. 2. Ejection fraction 10%. 06/2018 Echo LVEF 20-25% previously declined ICD placement Recommendations: Advised compliance with medical therapy and outpatient dietary restrictions. Continue medical therapy for chronic systolic heart failure and small vessel coronary artery disease. Due to borderline low BP will hold nitrates and reduce Lisinopril to 2.5 mg daily. Otherwise, conservative cardiac management. Subjective Date of service: 11/16/19 Interval history: Patient appears well. Reports of borderline low BP reading this morning. Patient remains asymptomatic. Objective Vital Signs Temp Pulse Resp BP Pulse Ox 11/16/19 10:36 112/84 11/16/19 10:34 112/84 11/16/19 04:58 106/55 11/16/19 04:56 97.7 F 18 89/51 11/16/19 00:17 97.5 F L 78 18 131/91 98 11/15/19 22:00 65 20 11/15/19 21:47 65 127/78 11/15/19 20:23 98.9 F 65 18 127/78 96 11/15/19 15:45 98.4 F 59 L 18 125/68 90 11/15/19 11:32 95/60 - Physical Examination General: No Apparent Distress HEENT: Positive: PERRL Neck: Positive: trachea midline Cardiac: Positive: Reg Rate and Rhythm Lungs: Positive: Decreased Breath Sounds Neuro: Positive: Grossly Intact Extremities: Absent: edema - Labs and Meds Comprehensive Metabolic Panel 11/16/19 Range/Units 05:06 Sodium 151 H D (137-145) mmol/L Potassium 4.3 (3.6-5.0) mmol/L Chloride 111.8 H (98-107) mmol/L Carbon Dioxide 18 L (22-30) mmol/L BUN 20 (9-20) mg/dL Creatinine 1.0 (0.8-1.3) mg/dL Glucose 121 H (75-100) mg/dL Calcium 9.2 (8.4-10.2) mg/dL
[2019-11-16] MEDS: TAMSULOSIN 0.4 MG CAP PO SCH (21:47)
[2019-11-17 05:39] LABS: BUN/Creatinine Ratio 21; Blood Urea Nitrogen 19 mg/dL (9-20); Calcium 8.9 mg/dL (8.4-10.2); Hemolysis Index 87
[2019-11-17] MEDS: FUROSEMIDE 40 MG/4 ML INJ IV SCH ×2 (06:52→18:18)
--- NOTE | 2019-11-17 08:15 | Progress Note ---
Assessment and Plan Assessment and plan: Right upper lobe pneumonia -Patient is on IV Levaquin (1) Acute exacerbation of CHF (congestive heart failure) Current Visit: Yes Status: Acute Qualifiers: Heart failure type: combined systolic and diastolic Qualified Code(s): I50.43 - Acute on chronic combined systolic (congestive) and diastolic (congestive) heart failure Plan to address problem: IV Lasix 40 mg every 12 Daily weights Daily intake output Echocardiogram for ejection fraction Cardiology consult appreciated Nitrate held because of hypotension Patient declined ICD placement before (2) Hypotension Current Visit: Yes Status: Chronic Qualifiers: Hypertension type: essential hypertension Qualified Code(s): I10 - Essential (primary) hypertension Plan to address problem: Held nitrates Decrease the dose of lisinopril to 2.5 Pain medication and monitor (3) Hyperlipidemia Current Visit: Yes Status: Chronic Qualifiers: Hyperlipidemia type: mixed hyperlipidemia Qualified Code(s): E78.2 - Mixed hyperlipidemia Plan to address problem: Continue statins (4) BPH (benign prostatic hyperplasia) Current Visit: Yes Status: Chronic Qualifiers: Lower urinary tract symptom presence: symptoms present Plan to address problem: Continue Flomax (5) DVT prophylaxis Current Visit: No Status: Acute Plan to address problem: On heparin and GI prophylaxis Disposition; possible discharge in a.m. if blood pressure is stable. History Interval history: Patient was seen and evaluated this morning Patient is off oxygen Patient said he is getting better today Hospitalist Physical - Physical exam Narrative exam: Not in cardiopulmonary distress. The patient appeared well nourished and normally developed. Vital signs as documented. Head exam is unremarkable. No scleral icterus . Neck is without jugular venous distension, thyromegaly, or carotid bruits. Lungs are clear to auscultation. Cardiac exam reveals regular rate and Rhythm. Abdominal exam reveals normal bowel sounds, nontender, no organomegaly. Extremities are nonedematous and both femoral and pedal pulses are normal. 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 No focal weakness. - Constitutional Vitals: Temp Pulse Resp BP Pulse Ox 99.4 F 62 20 103/55 100 11/17/19 05:27 11/17/19 05:27 11/17/19 05:27 11/17/19 05:27 11/17/19 05:27 General appearance: Present: mild distress, well-nourished HEART Score - HEART Score Risk factors: 1-2 risk factors Troponin: Troponin T < 0.010 ng/mL (0.00-0.029) 11/13/19 15:06 Troponin: 1-3x normal limit - Critical Actions Critical Actions: 4-6 pts:12-16.6% risk of adverse cardiac event. Should be adm itted Results - Labs CBC & Chem 7: 11/14/19 05:14 11/17/19 04:44 Labs: Laboratory Last Values WBC 5.0 K/mm3 (4.5-11.0) 11/14/19 05:14 RBC 4.92 M/mm3 (3.65-5.03) 11/14/19 05:14 Hgb 14.7 gm/dl (11.8-15.2) 11/14/19 05:14 Hct 44.3 % (35.5-45.6) 11/14/19 05:14 MCV 90 fl (84-94) 11/14/19 05:14 MCH 30 pg (28-32) 11/14/19 05:14 MCHC 33 % (32-34) 11/14/19 05:14 RDW 14.9 % (13.2-15.2) 11/14/19 05:14 Plt Count 188 K/mm3 (140-440) 11/14/19 05:14 Lymph % (Auto) 29.3 % (13.4-35.0) 11/14/19 05:14 [place] % (Auto) 11.7 % (0.0-7.3) H 11/14/19 05:14 Eos % (Auto) 1.2 % (0.0-4.3) 11/14/19 05:14 Baso % (Auto) 0.6 % (0.0-1.8) 11/14/19 05:14 Lymph # (Auto) 1.5 K/mm3 (1.2-5.4) 11/14/19 05:14 [place] # (Auto) 0.6 K/mm3 (0.0-0.8) 11/14/19 05:14 Eos # (Auto) 0.1 K/mm3 (0.0-0.4) 11/14/19 05:14 Baso # (Auto) 0.0 K/mm3 (0.0-0.1) 11/14/19 05:14 Seg Neutrophils % 57.2 % (40.0-70.0) 11/14/19 05:14 Seg Neutrophils # 2.9 K/mm3 (1.8-7.7) 11/14/19 05:14 PT 13.4 Sec. (12.2-14.9) 11/13/19 13:03 INR 1.00 (0.87-1.13) 11/13/19 13:03 APTT 31.1 Sec. (24.2-36.6) 11/13/19 13:03 Sodium 140 mmol/L (137-145) D 11/17/19 04:44 Potassium 4.3 mmol/L (3.6-5.0) 11/17/19 04:44 Chloride 101.6 mmol/L (98-107) 11/17/19 04:44 Carbon Dioxide 23 mmol/L (22-30) 11/17/19 04:44 Anion Gap 20 mmol/L 11/17/19 04:44 BUN 19 mg/dL (9-20) 11/17/19 04:44 Creatinine 0.9 mg/dL (0.8-1.3) 11/17/19 04:44 Estimated GFR > 60 ml/min 11/17/19 04:44 BUN/Creatinine Ratio 21 % 11/17/19 04:44 Glucose 106 mg/dL (75-100) H 11/17/19 04:44 POC Glucose 81 (70-105) 11/16/19 22:59 Hemoglobin A1c 5.7 % (4-6) 11/13/19 13:03 Lactic Acid 1.60 mmol/L (0.7-2.0) 11/13/19 13:03 Calcium 8.9 mg/dL (8.4-10.2) 11/17/19 04:44 Magnesium 2.10 mg/dL (1.7-2.3) 11/17/19 04:44 Total Bilirubin 0.60 mg/dL (0.1-1.2) 11/14/19 05:14 AST 18 units/L (5-40) 11/14/19 05:14 ALT 33 units/L (7-56) 11/14/19 05:14 Alkaline Phosphatase 61 units/L (35-129) 11/14/19 05:14 Troponin T < 0.010 ng/mL (0.00-0.029) 11/13/19 15:06 NT-Pro-B Natriuret Pep 7627 pg/mL (0-900) H 11/13/19 13:03 Total Protein 5.8 g/dL (6.3-8.2) L 11/14/19 05:14 Albumin 3.1 g/dL (3.9-5) L 11/14/19 05:14 Albumin/Globulin Ratio 1.1 % 11/14/19 05:14 Nasal Screen MRSA (PCR) Negative (Negative) 11/14/19 Unknown Microbiology: Microbiology 11/13/19 13:03 Peripheral/Venous Blood Culture - Preliminary NO GROWTH AFTER 72 HOURS 11/13/19 13:03 Peripheral/Venous Blood Culture - Preliminary NO GROWTH AFTER 72 HOURS Campos/IV: Voiding Method Toilet IV Catheter Type [Left Hand] Peripheral IV Active Medications - Current Medications Current Medications: Generic Name Dose Route Start Last Admin Trade Name Freq PRN Reason Stop Dose Admin Acetaminophen 650 mg 11/13/19 21:09 Tylenol PO Q4H PRN Pain MILD(1-3)/Fever >100.5/GARCÍA Aspirin 325 mg 11/14/19 10:00 11/16/19 10:36 Aspirin PO 325 mg QDAY CHIKI Administration Atorvastatin Calcium 40 mg 11/14/19 22:00 11/16/19 21:47 Lipitor PO 40 mg QHS CHIKI Administration Carvedilol 3.125 mg 11/14/19 10:00 11/16/19 21:47 Coreg PO 3.125 mg BID CHIKI Administration Famotidine 20 mg 11/14/19 10:00 11/16/19 21:47 Pepcid PO 20 mg BID CHIKI Administration Furosemide 40 mg 11/14/19 07:00 11/17/19 06:52 Lasix IV 40 mg 0600,1800 CHIKI Administration Heparin Sodium (Porcine) 5,000 unit 11/13/19 22:00 11/16/19 21:47 Heparin SUB-Q 5,000 unit Q12HR CHIKI Administration Levofloxacin 750 mg 11/14/19 10:00 11/16/19 10:36 Levaquin PO 11/18/19 10:01 750 mg QDAY CHIKI Administration Lisinopril 2.5 mg 11/16/19 10:00 11/16/19 10:34 Zestril PO 2.5 mg QDAY CHIKI Administration Magnesium Oxide 400 mg 11/14/19 10:00 11/16/19 10:36 Mag-Ox PO 400 mg QDAY CHIKI Administration Ondansetron HCl 4 mg 11/13/19 21:09 Zofran IV Q8H PRN Nausea And Vomiting Sodium Chloride 10 ml 11/13/19 22:00 11/16/19 21:48 Sodium Chloride Flush Syringe 10 Ml IV 10 ml BID CHIKI Administration Sodium Chloride 10 ml 11/13/19 21:09 11/17/19 06:54 Sodium Chloride Flush Syringe 10 Ml IV 10 ml PRN PRN Administration LINE FLUSH Spironolactone 25 mg 11/14/19 10:00 11/16/19 10:36 Aldactone PO 25 mg QDAY CHIKI Administration Tamsulosin HCl 0.4 mg 11/14/19 22:00 11/16/19 21:47 Flomax PO 0.4 mg QHS CHIKI Administration
[2019-11-17] MEDS: ASPIRIN 325 MG TAB PO SCH (10:27)
[2019-11-17] MEDS: MAGNESIUM OXIDE 400 MG TAB PO SCH (10:27)
[2019-11-17] MEDS: SPIRONOLACTONE 25 MG TAB PO SCH (10:27)
[2019-11-17] MEDS: carvediloL 3.125 MG TAB PO SCH ×2 (10:27→21:05)
[2019-11-17] MEDS: LISINOPRIL 5 MG TAB PO SCH (10:27)
[2019-11-17] MEDS: FAMOTIDINE 20 MG TAB PO SCH ×2 (10:27→21:04)
[2019-11-17] MEDS: HEPARIN 5,000 UNIT/1 ML VIAL SUB-Q SCH ×2 (10:28→21:05)
[2019-11-17] MEDS: levoFLOXacin 750 MG TAB PO SCH (10:40)
--- NOTE | 2019-11-17 11:06 | Progress Note ---
Subjective Date of service: 11/17/19 Interval history: BREATHING BETTER Objective Vital Signs Temp Pulse Resp BP Pulse Ox 11/17/19 10:27 120/59 11/17/19 08:28 98.3 F 48 L 20 120/59 100 11/17/19 05:27 99.4 F 62 20 103/55 100 11/17/19 00:48 98.1 F 58 L 20 112/67 93 11/16/19 22:00 58 L 11/16/19 21:47 71 103/75 11/16/19 20:42 99.6 F 71 20 103/75 98 11/16/19 15:51 98.7 F 77 20 140/80 99 - Physical Examination General: No Apparent Distress HEENT: Positive: PERRL Neck: Positive: trachea midline Cardiac: Positive: Reg Rate and Rhythm Lungs: Positive: Rhonchi Neuro: Positive: Grossly Intact Abdomen: Positive: Soft Extremities: Absent: edema - Labs and Meds Comprehensive Metabolic Panel 11/17/19 Range/Units 04:44 Sodium 140 D (137-145) mmol/L Potassium 4.3 (3.6-5.0) mmol/L Chloride 101.6 (98-107) mmol/L Carbon Dioxide 23 (22-30) mmol/L BUN 19 (9-20) mg/dL Creatinine 0.9 (0.8-1.3) mg/dL Glucose 106 H (75-100) mg/dL Calcium 8.9 (8.4-10.2) mg/dL - Imaging and Cardiology EKG: report reviewed
[2019-11-17] MEDS: TAMSULOSIN 0.4 MG CAP PO SCH (21:05)
[2019-11-18] MEDS: FUROSEMIDE 40 MG/4 ML INJ IV SCH (05:36)
[2019-11-18 05:38] LABS: BUN/Creatinine Ratio 19; Blood Urea Nitrogen 23 mg/dL (9-20); Calcium 9.1 mg/dL (8.4-10.2); Hemolysis Index 18
[2019-11-18] MEDS: MAGNESIUM OXIDE 400 MG TAB PO SCH (09:44)
[2019-11-18] MEDS: FAMOTIDINE 20 MG TAB PO SCH (09:44)
[2019-11-18] MEDS: ASPIRIN 325 MG TAB PO SCH (09:44)
[2019-11-18] MEDS: levoFLOXacin 750 MG TAB PO SCH (09:45)
[2019-11-18] MEDS: LISINOPRIL 5 MG TAB PO SCH (09:45)
[2019-11-18] MEDS: HEPARIN 5,000 UNIT/1 ML VIAL SUB-Q SCH (09:46)
[2019-11-18] MEDS: SPIRONOLACTONE 25 MG TAB PO SCH (09:47)
[2019-11-18] MEDS: carvediloL 3.125 MG TAB PO SCH (09:47)
[2019-11-18 12:03] VITALS: BP 103/69
--- NOTE | 2019-11-18 13:04 | Progress Note ---
Assessment and Plan - Patient Problems (1) CHF (congestive heart failure) Current Visit: Yes Status: Acute (2) Hypertension Current Visit: Yes Status: Chronic Qualifiers: Hypertension type: essential hypertension Qualified Code(s): I10 - Essential (primary) hypertension (3) Dilated cardiomyopathy Current Visit: No Status: Acute Subjective Date of service: 11/18/19 Interval history: BREATHING BETTER,,WANTS TO GO Objective Vital Signs Temp Pulse Resp BP BP Pulse Ox 11/18/19 12:00 98.4 F 67 20 103/69 99 11/18/19 09:47 55 L 113/74 11/18/19 09:45 56 L 113/74 11/18/19 08:38 98.7 F 56 L 20 113/74 100 11/18/19 04:48 97.6 F 57 L 18 122/70 100 11/17/19 23:51 97.5 F L 52 L 20 114/64 100 11/17/19 22:00 51 L 11/17/19 20:05 98.6 F 61 20 106/71 96 11/17/19 16:35 98.1 F 64 18 101/71 96 - Physical Examination General: No Apparent Distress HEENT: Positive: PERRL Neck: Positive: trachea midline Cardiac: Positive: Regular Rate Lungs: Positive: clear to auscultation Neuro: Positive: Grossly Intact Abdomen: Positive: Soft Extremities: Absent: edema - Labs and Meds Comprehensive Metabolic Panel 11/18/19 Range/Units 04:42 Sodium 137 (137-145) mmol/L Potassium 4.4 (3.6-5.0) mmol/L Chloride 99.4 (98-107) mmol/L Carbon Dioxide 26 (22-30) mmol/L BUN 23 H (9-20) mg/dL Creatinine 1.2 (0.8-1.3) mg/dL Glucose 115 H (75-100) mg/dL Calcium 9.1 (8.4-10.2) mg/dL - Imaging and Cardiology EKG: report reviewed
--- NOTE | 2019-11-18 13:31 | Discharge Summary ---
Providers - Providers Date of Admission: 11/14/19 11:26 Date of discharge: 11/18/19 Attending physician: LISA CHADWICK 11/14/19 06:57 Consult to Physician [CONS] Routine Comment: Consulting Provider: HERLINDA BOYLE Physician Instructions: Reason For Exam: CHF 11/15/19 14:42 Occupational Therapy Evaluate and Treat [CONS] Routine Comment: Reason For Exam: generalized weakness Physical Therapy Evaluation and Treat [CONS] Routine Comment: Reason For Exam: generalized weakness Primary care physician: DREDGEMASTER Hospitalization Condition: Fair Hospital course: 64-year-old male with history of hypertension, CHF, hyperlipidemia, and BPH comes in for increasing shortness of breath. Shortness of breath on very min imal exertion. Patient has class IV NYHA symptoms. Patient has orthopnea. No PND attacks. No chest pain. No diaphoresis no palpitations. Patient was treated for cough and shortness of breath and was prescribed antibiotics which he did not take. Patient is on Levaquin at this time. No fever or chills. No exposure to coronavirus. No recent travel. Orthopnea present. Here in in the ER, he was found to have acute on chronic systolic CHF and pneumonia. He was started on antibiotics and diuretics. Cardiology was consulted. As per reports, patient has been noncompliant with his diet and medications. His medications have been optimized and he is currently doing well. He is currently stable to be discharged to follow-up with cardiology in the office. He has been advised to adhere to low-salt diet and also take his medications as prescribed. He agrees with plan. Disposition: TO HOME OR SELFCARE - Discharge Diagnoses (1) Hyperlipidemia Status: Chronic Qualifiers: Hyperlipidemia type: mixed hyperlipidemia Qualified Code(s): E78.2 - Mixed hyperlipidemia (2) Hypertension Status: Chronic Qualifiers: Hypertension type: essential hypertension Qualified Code(s): I10 - Essential (primary) hypertension (3) Acute on chronic systolic (congestive) heart failure Status: Acute (4) Pneumonia Status: Acute Core Measure Documentation - Palliative Care Palliative Care/ Comfort Measures: Not Applicable - Core Measures Any of the following diagnoses?: none Exam - Constitutional Vitals: Temp Pulse Resp BP Pulse Ox 98.4 F 67 20 103/69 99 11/18/19 12:00 11/18/19 12:00 11/18/19 12:00 11/18/19 12:00 11/18/19 12:00 General appearance: Present: no acute distress, well-nourished - EENT Eyes: Present: PERRL ENT: hearing intact, clear oral mucosa - Neck Neck: Present: supple, normal ROM - Respiratory Respiratory effort: normal Respiratory: bilateral: CTA - Cardiovascular Heart Sounds: Present: S1 & S2. Absent: rub, click - Extremities Extremities: pulses symmetrical, No edema Peripheral Pulses: within normal limits - Abdominal General gastrointestinal: Present: soft, non-tender, non-distended, normal bowel sounds Male genitourinary: Present: normal - Integumentary Integumentary: Present: clear, warm, dry - Musculoskeletal Musculoskeletal: gait normal, strength equal bilaterally - Psychiatric Psychiatric: appropriate mood/affect, intact judgment & insight - Neurologic Neurologic: CNII-XII intact, moves all extremities Plan Follow up with: PRIMARY CAREMD [Primary Care Provider] - 3-5 Days KIRILL SMITH MD [Staff Physician] - 7 Days Prescriptions: Tamsulosin [Flomax] 0.4 mg PO QHS #30 capsule AtorvaSTATin [Lipitor] 40 mg PO QHS #30 tablet Spironolactone [Aldactone] 25 mg PO QDAY #30 tablet Aspirin 325 mg PO QDAY #30 tablet carvediloL [Coreg] 3.125 mg PO BID #60 tablet Furosemide [Lasix TAB] 40 mg PO QDAY #60 tablet Magnesium Oxide [Mag-Ox] 400 mg PO QDAY #30 tablet Famotidine [Pepcid] 20 mg PO BID #60 tablet lisinopriL [Zestril TAB] 2.5 mg PO QDAY #15 tablet
== END 2019-11-18 14:09 | disposition home or self-care (01) | DRG 291 ==
LOC: ED 10:30 → 4A 21:09 → OBSVTOIN 11-14 11:26
PROVIDERS: ADMIT Internal Medicine; ATTEND Internal Medicine
DX: I11.0 Hypertensive heart disease with heart failure (principal); J18.9 Pneumonia, unspecified organism; I50.43 Acute on chronic combined systolic (congestive) and diastolic (congestive) heart failure; N40.0 Benign prostatic hyperplasia without lower urinary tract symptoms; E78.5 Hyperlipidemia, unspecified; G43.909 Migraine, unspecified, not intractable, without status migrainosus; F17.200 Nicotine dependence, unspecified, uncomplicated; I42.8 Other cardiomyopathies; I42.0 Dilated cardiomyopathy; Z79.899 Other long term (current) drug therapy; Z79.82 Long term (current) use of aspirin; Z91.14 Patient's other noncompliance with medication regimen
CPT/HCPCS: 36415; 71045; 80048; 80053; 82140; 82962; 83036; 83735; 83880; 84484; 85025; 85610; 85730; 87040; 87641; 93005; 94644; 96374; 96375; 99406; G0378; A9270-GY; J0330; J1644; J1940

== ENCOUNTER 2020-04-12 01:23 | Inpatient (IN) | payer MEDICAID ==
--- NOTE | 2020-04-12 01:51 | Event Note ---
ED Screening Note Date of service: 04/12/20 Time: 01:50 ED Screening Note: 65-year-old -[place] male presents to the emergency room stating that his legs are painful and swelling having difficulty breathing. Patient reports has a history of congestive heart failure and has not been taking his medication properly. Patient will need to have administrative assistant data entry with staff to be taken out of his car as patient drove up on sidewalk. Patient has swelling up to his thighs. This initial assessment/diagnostic orders/clinical plan/treatment(s) is/are subject to change based on patients health status, clinical progression and re- assessment by fellow clinical providers in the ED. Further treatment and workup at subsequent clinical providers discretion. Patient/guardian urged not to elope from the ED as their condition may be serious if not clinically assessed and managed. Initial orders include:
--- NOTE | 2020-04-12 02:04 | XRay Report ---
CHEST 1 VIEW 04/12/2020 12:44 AM INDICATION / CLINICAL INFORMATION: chest pain. COMPARISON: 03/04/2020. FINDINGS: SUPPORT DEVICES: None. HEART / MEDIASTINUM: Stable moderate cardiomegaly. LUNGS / PLEURA: Mild interstitial thickening is stable. No significant edema or localized infiltrate. No pneumothorax. ADDITIONAL FINDINGS: No significant additional findings. IMPRESSION: Stable cardiomegaly with mild interstitial thickening. Signer Name: Scout Whitten MD Signed: 04/12/2020 2:00 AM Workstation Name: [id number]
[2020-04-12 02:23] LABS: Basophils % (Auto) 0.5 % (0.0-1.8); Eosinophils # (Auto) 0.1 K/mm3 (0.0-0.4); Hematocrit 39.9 % (35.5-45.6); Lymphocytes # (Auto) 1.4 K/mm3 (1.2-5.4); Lymphocytes % (Auto) 22.3 % (13.4-35.0); Mean Corpuscular HGB Conc 33 % (32-34); Mean Corpuscular Volume 90 fl (84-94); Monocytes # (Auto) 0.5 K/mm3 (0.0-0.8); Platelet Count 271 K/mm3 (140-440); Red Blood Count 4.45 M/mm3 (3.65-5.03); Red Cell Distribution Width 15.2 % (13.2-15.2)
[2020-04-12 02:30] LABS: Alanine Aminotransferase 29 units/L (7-56); BUN/Creatinine Ratio 15; Blood Urea Nitrogen 18 mg/dL (9-20); Calcium 8.9 mg/dL (8.4-10.2); Hemolysis Index 13
[2020-04-12] MEDS ORDERED: FUROSEMIDE 40 MG/4 ML INJ IV ONE (04:55)
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
[2020-04-12 05:33] LABS: Chol/HDL Ratio 2.96 %; HDL Cholesterol 30 mg/dL (40-59); LDL Cholesterol,Direct 53 mg/dL (50-130)
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
[2020-04-12] MEDS: FUROSEMIDE 40 MG/4 ML INJ IV SCH ×2 (11:26→18:05)
[2020-04-12] MEDS: ASPIRIN 325 MG TAB PO SCH (11:26)
[2020-04-12] MEDS: LISINOPRIL 5 MG TAB PO SCH (11:26)
[2020-04-12] MEDS: ALPRAZolam 0.25 MG TAB PO PRN ×2 (15:16→21:39)
[2020-04-12] MEDS: TAMSULOSIN 0.4 MG CAP PO SCH (21:39)
[2020-04-12] MEDS: carvediloL 3.125 MG TAB PO SCH (21:39)
[2020-04-12] MEDS: FAMOTIDINE 20 MG TAB PO SCH (21:39)
[2020-04-12] MEDS ORDERED: MORPHINE 2 MG/1 ML INJ IM ONE (21:48)
[2020-04-13] MEDS: FUROSEMIDE 40 MG/4 ML INJ IV SCH ×2 (05:34→17:26)
[2020-04-13 08:23] LABS: BUN/Creatinine Ratio 18; Blood Urea Nitrogen 21 mg/dL (9-20); Calcium 8.4 mg/dL (8.4-10.2); Hemolysis Index 40
[2020-04-13] MEDS: LISINOPRIL 5 MG TAB PO SCH (09:09)
[2020-04-13] MEDS: SPIRONOLACTONE 25 MG TAB PO SCH (09:09)
[2020-04-13] MEDS: ASPIRIN 325 MG TAB PO SCH (09:09)
[2020-04-13] MEDS: FAMOTIDINE 20 MG TAB PO SCH ×2 (09:09→21:23)
[2020-04-13] MEDS: carvediloL 3.125 MG TAB PO SCH ×2 (09:09→23:27)
--- NOTE | 2020-04-13 10:04 | Consultation ---
History of Present Illness Consult date: 04/13/20 Consult reason: congestive heart failure History of present illness: 65-year-old -[place] male who is known to [facility] has a history of dilated cardiomyopathy with congestive heart failure as well as having a history of noncompliance of medication presenting with shortness of breath and dyspnea as well as pedal edema. Patient was admitted with a diagnosis of decompensated congestive heart failure cardiology consult recommended. Past History Past Medical History: heart failure, hypertension. denies: diabetes Past Surgical History: denies: No surgical history Social history: smoking. denies: prescription drug abuse, IV drug use Medications and Allergies Allergies Allergy/AdvReac Type Severity Reaction Status Date / Time No Known Allergies Allergy Verified 01/09/14 03:24 Home Medications Medication Instructions Recorded Confirmed Last Taken Type Aspirin 325 mg PO QDAY 30 Days #30 tablet 03/08/20 04/12/20 Unknown Rx AtorvaSTATin [Lipitor] 40 mg PO QHS #30 tablet 03/08/20 04/12/20 Unknown Rx Famotidine [Pepcid] 20 mg PO BID #60 tablet 03/08/20 04/12/20 Unknown Rx Furosemide [Lasix TAB] 40 mg PO BID #60 tablet 03/08/20 04/12/20 Unknown Rx Magnesium Oxide [Mag-Ox] 400 mg PO QDAY #30 tablet 03/08/20 04/12/20 Unknown Rx Potassium Chloride [K-Dur] 20 meq PO QDAY #60 tab 03/08/20 04/12/20 Unknown Rx Spironolactone [Aldactone] 25 mg PO QDAY 30 Days #30 tablet 03/08/20 04/12/20 Unknown Rx Tamsulosin [Flomax] 0.4 mg PO QHS #30 capsule 03/08/20 04/12/20 Unknown Rx carvediloL [Coreg] 3.125 mg PO BID 30 Days #60 tablet 03/08/20 04/12/20 Unknown Rx lisinopriL [Zestril TAB] 5 mg PO QDAY #30 tablet 03/08/20 04/12/20 Unknown Rx Active Meds: Active Medications Alprazolam (Alprazolam 0.25 Mg Tab) 0.25 mg PO Q8H PRN PRN Reason: Anxiety Last Admin: 04/12/20 21:39 Dose: 0.25 mg Documented by: Aspirin (Aspirin 325 Mg Tab) 325 mg PO QDAY [facility] Last Admin: 04/13/20 09:09 Dose: 325 mg Documented by: Atorvastatin Calcium (Atorvastatin 40 Mg Tab) 40 mg PO QHS [facility] Last Admin: 04/12/20 21:39 Dose: 40 mg Documented by: Carvedilol (Carvedilol 3.125 Mg Tab) 3.125 mg PO BID [facility] Last Admin: 04/13/20 09:09 Dose: 3.125 mg Documented by: Famotidine (Famotidine 20 Mg Tab) 20 mg PO BID [facility] Last Admin: 04/13/20 09:09 Dose: 20 mg Documented by: Furosemide (Furosemide 40 Mg/4 Ml Inj) 40 mg IV 0600,1800 [facility] Last Admin: 04/13/20 05:34 Dose: 40 mg Documented by: Lisinopril (Lisinopril 5 Mg Tab) 5 mg PO QDAY [facility] Last Admin: 04/13/20 09:09 Dose: 5 mg Documented by: Spironolactone (Spironolactone 25 Mg Tab) 25 mg PO QDAY [facility] Last Admin: 04/13/20 09:09 Dose: 25 mg Documented by: Tamsulosin HCl (Tamsulosin 0.4 Mg Cap) 0.4 mg PO QHS [facility] Last Admin: 04/12/20 21:39 Dose: 0.4 mg Documented by: Review of Systems Constitutional: weight gain, no fever, no chills, no sweats, no anorexia Cardiovascular: orthopnea, edema, shortness of breath, dyspnea on exertion, no chest pain, no palpitations Respiratory: no cough, no cough with sputum, no congestion Gastrointestinal: no nausea, no vomiting, no diarrhea, no melena, no hematochezia Genitourinary Male: no dysuria, no hematuria, no flank pain Musculoskeletal: no neck stiffness, no neck pain, no morning stiffness Integumentary: no rash, no pruritis, no redness, no sores, no wounds Neurological: no head injury, no paralysis, no parathesias Endocrine: no cold intolerance, no heat intolerance, no polyphagia, no excessive thirst, no polydipsia, no polyuria Hematologic/Lymphatic: no easy bruising, no easy bleeding Allergic/Immunologic: no urticaria, no allergic rhinitis, no wheezing Physical Examination Vital Signs Temp Pulse Resp BP Pulse Ox 97.4 F L 107 H 18 145/95 98 04/12/20 01:41 04/12/20 01:41 04/12/20 01:41 04/12/20 01:41 04/12/20 01:41 General appearance: no acute distress, well-nourished, obese HEENT: Positive: PERRL, Mucus Membranes Moist Neck: Positive: neck supple, trachea midline Cardiac: Positive: Reg Rate and Rhythm, S1/S2, S3, PMI, Laterally Displaced. Negative: Audible Murmur Lungs: Positive: clear to auscultation, Normal Breath Sounds Neuro: Positive: Grossly Intact Abdomen: Positive: Soft, Active Bowel Sounds. Negative: Tender, Distended Skin: Positive: Clear Musculoskeletal: No Pain, Normal Range of Motion Extremities: Present: +2 Edema Results 04/12/20 01:50 04/13/20 07:26 Comprehensive Metabolic Panel 04/13/20 Range/Units 07:26 Sodium 137 (137-145) mmol/L Potassium 4.6 D (3.6-5.0) mmol/L Chloride 100.7 (98-107) mmol/L Carbon Dioxide 26 (22-30) mmol/L BUN 21 H (9-20) mg/dL Creatinine 1.2 (0.8-1.3) mg/dL Glucose 103 H (75-100) mg/dL Calcium 8.4 (8.4-10.2) mg/dL EKG interpretations - Telemetry EKG Rhythm: Sinus Rhythm Assessment and Plan 1. Acute decompensated chronic combined systolic and diastolic heart failure 2. Dilated cardiomyopathy 3. Essential hypertension 4. Hyperlipidemia 5. Noncompliance of medication and medical regimen Chest x-ray reveals cardiomegaly with mild interstitial prominence no overt signs of pulmonary edema. Previous echocardiogram as per old records documented a left ventricular ejection fraction of 15 to 20% Plan Nitropaste ointment for pre and afterload reduction aggressive IV diuresing inotropic support with IV dobutamine CHF education stressing the importance of compliance of medication as well as outpatient follow-up
--- NOTE | 2020-04-13 13:50 | Progress Note ---
Assessment and Plan -- Acute respiratory failure with hypoxia due to CHf exacerbation Patient was hypoxic initially at 86% on room air. Improved with oxygen supplementation. Patient to be diuresed to get the volume overload controlled -- Acute exacerbation of CHF (congestive heart failure) Acute on chronic congestive heart failure Last cath in 2017 showed ejection fraction of 15-20% Global hypokinesis Cardiomyopathy Cardiology consult requested Daily weights and intake and output IV Lasix 40 mg every 12 Spironolactone once a day -- Coronary artery disease Patient has moderate coronary artery disease.. ICD was recommended on the last cardiac cath of 12/25. Patient is noncompliant. Will defer to cardiology regarding ICD placement. -- Hypertension Continue antihypertensives and adjust medications as necessary -- Hyperlipidemia Continue statins in the form of Lipitor 40 mg once a day --BPH (benign prostatic hyperplasia) Continue Flomax -- GERD (gastroesophageal reflux disease) Patient on famotidine 20 mg twice a day -- Elevated troponin Cardiology consult requested CK and CK-MB also ordered Serial troponins ordered -- Generalized anxiety disorder Patient very anxious in the emergency room and hyperventilating Do not know his baseline Patient started on Ativan 1 mg every 3 hours as needed -- DVT prophylaxis On heparin and GI prophylaxis daily course; 04/13/20; cont iv lasix, ins/os, daily wt, follow clinically Subjective Date of service: 04/13/20 Interval history: Patient seen and examined denies any chest pain, vitals noted c/o SOB even on resting, on n/c Objective - Exam Narrative Exam: General appearance: Present: mild distress, well-nourished - EENT Eyes: Present: PERRL ENT: hearing intact, clear oral mucosa - Neck Neck: Present: supple, normal ROM - Respiratory Respiratory effort: normal Respiratory: bilateral: CTA, rales (Bilateral basilar rales) - Cardiovascular Heart rate: 110 Rhythm: regular Heart Sounds: Present: S1 & S2. Absent: rub, click - Extremities Extremities: no ischemia, pulses intact, pulses symmetrical, abnormal (3+ pedal edema and stasis dermatitis) Extremity abnormal: edema (3+ pedal edema and stasis dermatitis) Peripheral Pulses: within normal limits - Abdominal General gastrointestinal: Present: soft, non-tender, non-distended, normal bowel sounds Male genitourinary: Present: normal - Rectal Rectal Exam: deferred - Integumentary Integumentary: Present: clear, warm, dry - Musculoskeletal Musculoskeletal: gait normal, strength equal bilaterally - Psychiatric Psychiatric: appropriate mood/affect, intact judgment & insight - Neurologic Neurologic: CNII-XII intact, moves all extremities - Allied Health Allied health notes reviewed: nursing, case management - Constitutional Vitals: Vital Signs - 12hr 04/13/20 04/13/20 04/13/20 04:00 06:50 07:18 Temperature 97.3 F L 97.5 F L Pulse Rate 75 106 H 65 Pulse Rate [ From Monitor] Respiratory 18 20 Rate Blood Pressure 114/75 Blood Pressure 104/78 [Left] O2 Sat by Pulse 98 99 Oximetry 04/13/20 04/13/20 09:09 10:00 Temperature Pulse Rate 65 Pulse Rate [ 106 H From Monitor] Respiratory 18 Rate Blood Pressure 114/75 Blood Pressure [Left] O2 Sat by Pulse Oximetry - Labs CBC & Chem 7: 04/12/20 01:50 04/18/20 06:47 Labs: Abnormal lab results 04/13/20 Range/Units 07:26 BUN 21 H (9-20) mg/dL Glucose 103 H (75-100) mg/dL HEART Score - HEART Score Troponin: Troponin T 0.030 ng/mL (0.00-0.029) H 04/12/20 01:50
[2020-04-13] MEDS: NITROGLYCERIN 2% OINT 1 GM TP SCH (13:52)
[2020-04-13] MEDS: ALPRAZolam 0.25 MG TAB PO PRN (21:23)
[2020-04-13] MEDS: TAMSULOSIN 0.4 MG CAP PO SCH (21:23)
[2020-04-14] MEDS: FUROSEMIDE 40 MG/4 ML INJ IV SCH ×2 (05:27→18:14)
[2020-04-14] MEDS: NITROGLYCERIN 2% OINT 1 GM TP SCH ×2 (05:40→14:41)
[2020-04-14] MEDS: carvediloL 3.125 MG TAB PO SCH ×2 (09:29→21:27)
[2020-04-14] MEDS: FAMOTIDINE 20 MG TAB PO SCH ×2 (09:30→21:26)
[2020-04-14] MEDS: SPIRONOLACTONE 25 MG TAB PO SCH (09:30)
[2020-04-14] MEDS: ASPIRIN 325 MG TAB PO SCH (09:30)
[2020-04-14] MEDS: LISINOPRIL 5 MG TAB PO SCH (09:31)
--- NOTE | 2020-04-14 10:05 | Progress Note ---
Assessment and Plan - Patient Problems (1) Acute on chronic systolic (congestive) heart failure Current Visit: Yes Status: Acute Plan to address problem: Patient is a 65-year-old man with a history of a dilated, nonischemic cardiomyopathy. In December 2017, a cardiac catheterization revealed no significant obstructive coronary lesions, and his left ventricular ejection fraction has ranged between 10 and 25% on invasive and noninvasive assessments. He has been recommended for guideline directed medical therapy, but unfortunately patient has been noncompliant with outpatient medical therapy, dietary salt restrictions, and has not followed-up as directed with his outpatient loss prevention lead. As a result, they have been multiple readmissions including the current one for acute exacerbations of chronic systolic heart failure. In addition, he has declined a recommendation for ICD implant for primary prevention. On this presentation, we will continue optimization of heart failure therapy and dietary salt restriction, with intravenous diuretics, afterload agents, followed by reinstitution of optimal beta-niels therapy. I would also recommend social worker school consultation to assist the patient with outpatient medical management of his chronic heart failure. Subjective Date of service: 04/14/20 Interval history: Patient is comfortable, in no acute distress. On interactive designer, a sinus rhythm at 100. Objective Vital Signs Temp Pulse Pulse Resp BP BP Pulse Ox 04/14/20 09:31 98 H 105/56 04/14/20 09:30 98 H 105/56 04/14/20 09:29 98 H 105/56 04/14/20 07:42 98.4 F 16 94/68 04/14/20 05:40 65 105/83 04/14/20 05:03 98.3 F 65 20 105/83 100 04/14/20 04:00 65 04/13/20 23:35 98.4 F 104 H 18 101/70 100 04/13/20 23:27 104 H 101/70 04/13/20 22:00 88 20 04/13/20 20:00 55 L 04/13/20 19:46 97.3 F L 55 L 18 95/54 72 L 04/13/20 19:00 93 04/13/20 17:11 101/65 04/13/20 15:46 98.1 F 57 L 22 94/67 97 04/13/20 12:11 97.5 F L 36 L 20 101/64 90 - Physical Examination General: No Apparent Distress HEENT: Positive: PERRL, Mucus Membranes Moist Neck: Positive: neck supple, trachea midline Cardiac: Positive: Reg Rate and Rhythm Lungs: Positive: Decreased Breath Sounds Neuro: Positive: Grossly Intact Abdomen: Positive: Soft, Active Bowel Sounds. Negative: Tender, Distended Skin: Positive: Clear Musculoskeletal: No Pain, Normal Range of Motion Extremities: Present: +1 Edema
--- NOTE | 2020-04-14 16:39 | Progress Note ---
Assessment and Plan -- Acute respiratory failure with hypoxia due to CHf exacerbation Patient was hypoxic initially at 86% on room air. Improved with oxygen supplementation. Patient to be diuresed to get the volume overload controlled -- Acute exacerbation of CHF (congestive heart failure) Acute on chronic congestive heart failure Last cath in 2017 showed ejection fraction of 15-20% Global hypokinesis Cardiomyopathy Cardiology consult requested Daily weights and intake and output IV Lasix 40 mg every 12 Spironolactone once a day -- Coronary artery disease Patient has moderate coronary artery disease.. ICD was recommended on the last cardiac cath of 12/25. Patient is noncompliant. Will defer to cardiology regarding ICD placement. -- Hypertension Continue antihypertensives and adjust medications as necessary -- Hyperlipidemia Continue statins in the form of Lipitor 40 mg once a day --BPH (benign prostatic hyperplasia) Continue Flomax -- GERD (gastroesophageal reflux disease) Patient on famotidine 20 mg twice a day -- Elevated troponin Cardiology consult requested CK and CK-MB also ordered Serial troponins ordered -- Generalized anxiety disorder Patient very anxious in the emergency room and hyperventilating Do not know his baseline Patient started on Ativan 1 mg every 3 hours as needed -- DVT prophylaxis On heparin and GI prophylaxis daily course; 04/13/20; cont iv lasix, ins/os, daily wt, follow clinically 04/14/20; patient with vtach on tele, will increase BB dose, order EKG Subjective Date of service: 04/14/20 Interval history: Patient seen and examined denies any chest pain, vitals noted c/o SOB even on resting, on n/c Objective - Exam Narrative Exam: General appearance: Present: mild distress, well-nourished - EENT Eyes: Present: PERRL ENT: hearing intact, clear oral mucosa - Neck Neck: Present: supple, normal ROM - Respiratory Respiratory effort: normal Respiratory: bilateral: CTA, rales (Bilateral basilar rales) - Cardiovascular Heart rate: 110 Rhythm: regular Heart Sounds: Present: S1 & S2. Absent: rub, click - Extremities Extremities: no ischemia, pulses intact, pulses symmetrical, abnormal (3+ pedal edema and stasis dermatitis) Extremity abnormal: edema (3+ pedal edema and stasis dermatitis) Peripheral Pulses: within normal limits - Abdominal General gastrointestinal: Present: soft, non-tender, non-distended, normal bowel sounds Male genitourinary: Present: normal - Rectal Rectal Exam: deferred - Integumentary Integumentary: Present: clear, warm, dry - Musculoskeletal Musculoskeletal: gait normal, strength equal bilaterally - Psychiatric Psychiatric: appropriate mood/affect, intact judgment & insight - Neurologic Neurologic: CNII-XII intact, moves all extremities - Allied Health Allied health notes reviewed: nursing, case management - Constitutional Vitals: Vital Signs - 12hr 04/14/20 04/14/20 04/14/20 05:03 05:40 07:42 Temperature 98.3 F 98.4 F Pulse Rate 65 65 Pulse Rate [ Apical] Pulse Rate [ Left Radial] Pulse Rate [ Right Radial] Respiratory 20 16 Rate Blood Pressure 105/83 105/83 94/68 O2 Sat by Pulse 100 Oximetry 04/14/20 04/14/20 04/14/20 09:28 09:29 09:30 Temperature Pulse Rate 74 98 H 98 H Pulse Rate [ Apical] Pulse Rate [ Left Radial] Pulse Rate [ Right Radial] Respiratory Rate Blood Pressure 105/56 105/56 105/56 O2 Sat by Pulse 100 Oximetry 04/14/20 04/14/20 04/14/20 09:31 10:00 11:56 Temperature Pulse Rate 98 H 95 H 64 Pulse Rate [ 65 Apical] Pulse Rate [ 65 Left Radial] Pulse Rate [ 65 Right Radial] Respiratory 24 Rate Blood Pressure 105/56 97/71 O2 Sat by Pulse 96 Oximetry 04/14/20 04/14/20 12:00 14:41 Temperature Pulse Rate 97 H 67 Pulse Rate [ Apical] Pulse Rate [ Left Radial] Pulse Rate [ Right Radial] Respiratory Rate Blood Pressure 99/67 O2 Sat by Pulse Oximetry - Labs CBC & Chem 7: 04/12/20 01:50 04/18/20 06:47 HEART Score - HEART Score Troponin: Troponin T 0.030 ng/mL (0.00-0.029) H 04/12/20 01:50
[2020-04-14] MEDS: ALPRAZolam 0.25 MG TAB PO PRN (19:53)
[2020-04-14] MEDS: TAMSULOSIN 0.4 MG CAP PO SCH (21:28)
[2020-04-15] MEDS ORDERED: ONDANSETRON 4 MG/2 ML INJ IV PRN (03:19)
[2020-04-15] MEDS: NITROGLYCERIN 2% OINT 1 GM TP SCH ×2 (06:23→13:26)
[2020-04-15] MEDS: FUROSEMIDE 40 MG/4 ML INJ IV SCH ×2 (06:23→18:26)
--- NOTE | 2020-04-15 10:11 | Progress Note ---
Assessment and Plan Chronic systolic heart failure s/t to noncompliance with outpatient medical therapy Nonischemic cardiomyopathy 12/2017 [facility] findings: 1. Small vessel coronary artery disease. 2. Ejection fraction 10%. 06/2018 Echo LVEF 20-25% previously declined ICD placement Recommendations: Advised dietary restriction. Aggressive medical therapy for chronic systolic heart failure including a trial of intravenous milrinone for 72 hours as tolerated. Continue medical therapy for small vessel coronary artery disease. Subjective Date of service: 04/15/20 Interval history: Patient is short of breath with minimal exertion. Short burst of NSVT seen on telemetry. Patient was reported asymptomatic. Objective Vital Signs Temp Pulse Resp BP Pulse Ox 04/15/20 08:03 99/73 04/15/20 08:02 97.2 F L 60 98/38 99 04/15/20 03:53 98 H 04/15/20 03:51 97.9 F 26 H 103/73 94 04/15/20 03:01 69 22 100 04/14/20 23:12 98.5 F 67 22 104/82 99 04/14/20 20:33 26 H 04/14/20 20:30 98 H 04/14/20 20:23 98 H 24 100 04/14/20 20:04 98 H 98 04/14/20 20:02 97.3 F L 34 H 106/78 04/14/20 18:13 48 L 90/55 22 L 04/14/20 16:07 97.6 F 96 H 18 105/79 94 04/14/20 14:41 67 99/67 04/14/20 12:00 97 H 04/14/20 11:56 64 97/71 96 - Physical Examination General: No Apparent Distress HEENT: Positive: PERRL Neck: Positive: neck supple, trachea midline Cardiac: Positive: Reg Rate and Rhythm Lungs: Positive: Decreased Breath Sounds Neuro: Positive: Grossly Intact Abdomen: Positive: Soft, Active Bowel Sounds Extremities: Present: +1 Edema
[2020-04-15] MEDS: LISINOPRIL 5 MG TAB PO SCH (10:39)
[2020-04-15] MEDS: ASPIRIN 325 MG TAB PO SCH (10:39)
[2020-04-15] MEDS: SPIRONOLACTONE 25 MG TAB PO SCH (10:39)
[2020-04-15] MEDS: FAMOTIDINE 20 MG TAB PO SCH ×2 (10:40→22:06)
[2020-04-15] MEDS: carvediloL 3.125 MG TAB PO SCH ×2 (10:40→22:07)
[2020-04-15 11:09] LABS: BUN/Creatinine Ratio 23; Blood Urea Nitrogen 25 mg/dL (9-20); Calcium 8.5 mg/dL (8.4-10.2); Hemolysis Index 92
[2020-04-15] MEDS ORDERED: FUROSEMIDE 40 MG/4 ML INJ IV SCH (11:43)
[2020-04-15] MEDS ORDERED: FUROSEMIDE 20 MG/2 ML INJ IV ONE (12:00)
[2020-04-15] MEDS: MILRINONE-D5W 20 MG/100 ML 20 MG/100 ML BAG IV SCH ×2 (13:27→22:58)
--- NOTE | 2020-04-15 14:37 | Progress Note ---
Assessment and Plan -- Acute respiratory failure with hypoxia due to CHf exacerbation Patient was hypoxic initially at 86% on room air. Improved with oxygen supplementation. Patient to be diuresed to get the volume overload controlled -- Acute exacerbation of CHF (congestive heart failure) Acute on chronic congestive heart failure Last cath in 2017 showed ejection fraction of 15-20% Cardiology consult requested Daily weights and intake and output increase IV Lasix 60 mg every 12 Spironolactone once a day Started on milrinone drip -- Coronary artery disease Patient has moderate coronary artery disease.. ICD was recommended on the last cardiac cath of 12/25. Patient is noncompliant. Will defer to cardiology regarding ICD placement. -- Hypertension Continue antihypertensives and adjust medications as necessary -- Hyperlipidemia Continue statins in the form of Lipitor 40 mg once a day --BPH (benign prostatic hyperplasia) Continue Flomax -- GERD (gastroesophageal reflux disease) Patient on famotidine 20 mg twice a day -- Elevated troponin Cardiology consult requested CK and CK-MB also ordered Serial troponins ordered -- Generalized anxiety disorder Patient very anxious in the emergency room and hyperventilating Do not know his baseline Patient started on Ativan 1 mg every 3 hours as needed -- DVT prophylaxis On heparin and GI prophylaxis daily course; 04/13/20; cont iv lasix, ins/os, daily wt, follow clinically 04/14/20; patient with vtach on tele, will increase BB dose, order EKG 04/15/20: started on milrinone drip today, continue IV diuresis, follow ins and outs Subjective Date of service: 04/15/20 Interval history: Patient seen and examined denies any chest pain, vitals noted c/o SOB even on resting, on n/c Objective - Exam Narrative Exam: General appearance: Present: mild distress, well-nourished - EENT Eyes: Present: PERRL ENT: hearing intact, clear oral mucosa - Neck Neck: Present: supple, normal ROM - Respiratory Respiratory effort: normal Respiratory: bilateral: CTA, rales (Bilateral basilar rales) - Cardiovascular Heart rate: 110 Rhythm: regular Heart Sounds: Present: S1 & S2. Absent: rub, click - Extremities Extremities: no ischemia, pulses intact, pulses symmetrical, abnormal (3+ pedal edema and stasis dermatitis) Extremity abnormal: edema (3+ pedal edema and stasis dermatitis) Peripheral Pulses: within normal limits - Abdominal General gastrointestinal: Present: soft, non-tender, non-distended, normal bowel sounds Male genitourinary: Present: normal - Rectal Rectal Exam: deferred - Integumentary Integumentary: Present: clear, warm, dry - Musculoskeletal Musculoskeletal: gait normal, strength equal bilaterally - Psychiatric Psychiatric: appropriate mood/affect, intact judgment & insight - Neurologic Neurologic: CNII-XII intact, moves all extremities - Allied Health Allied health notes reviewed: nursing, case management - Constitutional Vitals: Vital Signs - 12hr 04/15/20 04/15/20 04/15/20 03:01 03:51 03:53 Temperature 97.9 F Pulse Rate 69 98 H Respiratory 22 26 H Rate Blood Pressure 103/73 O2 Sat by Pulse 100 94 Oximetry 04/15/20 04/15/20 04/15/20 08:02 08:03 10:43 Temperature 97.2 F L Pulse Rate 60 103 H Respiratory Rate Blood Pressure 98/38 99/73 O2 Sat by Pulse 99 Oximetry 04/15/20 11:58 Temperature 98.3 F Pulse Rate 99 H Respiratory Rate Blood Pressure 93/51 O2 Sat by Pulse 95 Oximetry - Labs CBC & Chem 7: 04/12/20 01:50 04/18/20 06:47 Labs: Abnormal lab results 04/15/20 04/15/20 Range/Units 07:35 10:01 Sodium 134 L (137-145) mmol/L BUN 25 H (9-20) mg/dL Glucose 135 H (75-100) mg/dL POC Glucose 132 H (70-105) mg/dL HEART Score - HEART Score Troponin: Troponin T 0.021 ng/mL (0.00-0.029) 04/14/20 15:59
[2020-04-15] MEDS: TAMSULOSIN 0.4 MG CAP PO SCH (22:06)
[2020-04-16] MEDS: NITROGLYCERIN 2% OINT 1 GM TP SCH ×2 (05:24→13:09)
[2020-04-16] MEDS: FUROSEMIDE 40 MG/4 ML INJ IV SCH ×2 (05:27→17:50)
[2020-04-16 06:13] LABS: BUN/Creatinine Ratio 18; Blood Urea Nitrogen 23 mg/dL (9-20); Calcium 8.1 mg/dL (8.4-10.2); Hemolysis Index 3
[2020-04-16] MEDS: carvediloL 3.125 MG TAB PO SCH ×2 (10:13→21:43)
[2020-04-16] MEDS: SPIRONOLACTONE 25 MG TAB PO SCH (10:13)
[2020-04-16] MEDS: LISINOPRIL 5 MG TAB PO SCH (10:13)
[2020-04-16] MEDS: FAMOTIDINE 20 MG TAB PO SCH ×2 (10:13→21:42)
[2020-04-16] MEDS: ASPIRIN 325 MG TAB PO SCH (10:13)
--- NOTE | 2020-04-16 11:29 | Progress Note ---
Assessment and Plan Chronic systolic heart failure s/t to noncompliance with outpatient medical therapy Nonischemic cardiomyopathy 12/2017 [facility] findings: 1. Small vessel coronary artery disease. 2. Ejection fraction 10%. 06/2018 Echo LVEF 20-25% previously declined ICD placement Recommendations: Advised dietary restriction. Continue I's & O's. Continue medical therapy for small vessel coronary artery disease and for chronic systolic heart failure including a trial of intravenous milrinone. Subjective Date of service: 04/16/20 Interval history: IV milrinone continues. Patient admits he is diuresing well. Objective Vital Signs Temp Pulse Resp BP Pulse Ox 04/16/20 10:18 104 H 04/16/20 07:38 98.2 F 56 L 20 90/51 99 04/16/20 05:24 93 H 98/57 04/16/20 03:19 98.5 F 93 H 17 98/57 93 04/15/20 23:04 98.2 F 100 H 17 102/63 94 04/15/20 22:07 52 L 104/67 04/15/20 22:00 101 H 04/15/20 19:25 98.4 F 52 L 16 104/67 94 04/15/20 15:57 89/73 04/15/20 15:55 85/43 04/15/20 15:54 97.2 F L 101 H 89/53 96 04/15/20 11:58 98.3 F 99 H 93/51 95 - Physical Examination General: No Apparent Distress HEENT: Positive: PERRL Neck: Positive: neck supple, trachea midline Cardiac: Positive: Reg Rate and Rhythm Lungs: Positive: Decreased Breath Sounds Neuro: Positive: Grossly Intact Abdomen: Positive: Soft Extremities: Present: +1 Edema - Labs and Meds Comprehensive Metabolic Panel 04/16/20 Range/Units 05:08 Sodium 136 L (137-145) mmol/L Potassium 3.9 (3.6-5.0) mmol/L Chloride 100.4 (98-107) mmol/L Carbon Dioxide 30 (22-30) mmol/L BUN 23 H (9-20) mg/dL Creatinine 1.3 (0.8-1.3) mg/dL Glucose 104 H (75-100) mg/dL Calcium 8.1 L (8.4-10.2) mg/dL
[2020-04-16] MEDS: MILRINONE-D5W 20 MG/100 ML 20 MG/100 ML BAG IV SCH (12:26)
--- NOTE | 2020-04-16 14:24 | Progress Note ---
Assessment and Plan -- Acute respiratory failure with hypoxia due to CHf exacerbation Patient was hypoxic initially at 86% on room air. Improved with oxygen supplementation. Patient to be diuresed to get the volume overload controlled -- Acute exacerbation of CHF (congestive heart failure) Acute on chronic congestive heart failure Last cath in 2017 showed ejection fraction of 15-20% Cardiology consult requested Daily weights and intake and output increase IV Lasix 60 mg every 12 Spironolactone once a day Started on milrinone drip -- Coronary artery disease Patient has moderate coronary artery disease.. ICD was recommended on the last cardiac cath of 12/25. Patient is noncompliant. Will defer to cardiology regarding ICD placement. -- Hypertension Continue antihypertensives and adjust medications as necessary -- Hyperlipidemia Continue statins in the form of Lipitor 40 mg once a day --BPH (benign prostatic hyperplasia) Continue Flomax -- GERD (gastroesophageal reflux disease) Patient on famotidine 20 mg twice a day -- Elevated troponin Cardiology consult requested CK and CK-MB also ordered Serial troponins ordered -- Generalized anxiety disorder Patient very anxious in the emergency room and hyperventilating Do not know his baseline Patient started on xanax as needed -- DVT prophylaxis On heparin and GI prophylaxis daily course; 04/13/20; cont iv lasix, ins/os, daily wt, follow clinically 04/14/20; patient with vtach on tele, will increase BB dose, order EKG 04/15/20: started on milrinone drip today, continue IV diuresis, follow ins and outs 04/16/20: cont milrinone drip, continue IV diuresis, follow ins and O's Subjective Date of service: 04/16/20 Interval history: Patient seen and examined denies any chest pain, vitals noted states SOB improved, on RA today Objective - Exam Narrative Exam: General appearance: Present: mild distress, well-nourished - EENT Eyes: Present: PERRL ENT: hearing intact, clear oral mucosa - Neck Neck: Present: supple, normal ROM - Respiratory Respiratory effort: normal Respiratory: bilateral: CTA, rales (Bilateral basilar rales) - Cardiovascular Heart rate: 110 Rhythm: regular Heart Sounds: Present: S1 & S2. Absent: rub, click - Extremities Extremities: no ischemia, pulses intact, pulses symmetrical, abnormal (3+ pedal edema and stasis dermatitis) Extremity abnormal: edema (3+ pedal edema and stasis dermatitis) Peripheral Pulses: within normal limits - Abdominal General gastrointestinal: Present: soft, non-tender, non-distended, normal bowel sounds Male genitourinary: Present: normal - Rectal Rectal Exam: deferred - Integumentary Integumentary: Present: clear, warm, dry - Musculoskeletal Musculoskeletal: gait normal, strength equal bilaterally - Psychiatric Psychiatric: appropriate mood/affect, intact judgment & insight - Neurologic Neurologic: CNII-XII intact, moves all extremities - Allied Health Allied health notes reviewed: nursing, case management - Constitutional Vitals: Vital Signs - 12hr 04/16/20 04/16/20 04/16/20 03:19 05:24 07:38 Temperature 98.5 F 98.2 F Pulse Rate 93 H 93 H 56 L Respiratory 17 20 Rate Blood Pressure 98/57 98/57 90/51 O2 Sat by Pulse 93 99 Oximetry 04/16/20 04/16/20 10:18 11:25 Temperature 97.5 F L Pulse Rate 104 H 95 H Respiratory 19 Rate Blood Pressure 108/69 O2 Sat by Pulse 97 Oximetry - Labs CBC & Chem 7: 04/12/20 01:50 04/18/20 06:47 Labs: Abnormal lab results 04/16/20 Range/Units 05:08 Sodium 136 L (137-145) mmol/L BUN 23 H (9-20) mg/dL Glucose 104 H (75-100) mg/dL Calcium 8.1 L (8.4-10.2) mg/dL HEART Score - HEART Score Troponin: Troponin T 0.021 ng/mL (0.00-0.029) 04/14/20 15:59
[2020-04-16] MEDS: TAMSULOSIN 0.4 MG CAP PO SCH (21:42)
[2020-04-17] MEDS: NITROGLYCERIN 2% OINT 1 GM TP SCH ×2 (05:21→14:00)
[2020-04-17] MEDS: FUROSEMIDE 40 MG/4 ML INJ IV SCH ×2 (05:24→18:19)
[2020-04-17] MEDS: MILRINONE-D5W 20 MG/100 ML 20 MG/100 ML BAG IV SCH ×2 (05:34→18:18)
[2020-04-17] MEDS: SPIRONOLACTONE 25 MG TAB PO SCH ×2 (10:08→13:28)
[2020-04-17] MEDS: ASPIRIN 325 MG TAB PO SCH (10:09)
[2020-04-17] MEDS: carvediloL 3.125 MG TAB PO SCH ×2 (10:09→22:40)
[2020-04-17] MEDS: FAMOTIDINE 20 MG TAB PO SCH ×2 (10:09→22:40)
[2020-04-17] MEDS: LISINOPRIL 5 MG TAB PO SCH (10:10)
--- NOTE | 2020-04-17 12:27 | Progress Note ---
Assessment and Plan - Patient Problems (1) Acute on chronic systolic (congestive) heart failure Current Visit: Yes Status: Acute Plan to address problem: Symptoms of acute on chronic systolic heart failure and fluid overload have resolved with guideline directed medical therapy and intravenous milrinone. We will continue milrinone at 0.25 mg/kg until tomorrow, and plan eventual discharge tomorrow afternoon. We will hold lisinopril due to low normal blood pressures, and resume at 2.5 mg daily on discharge. Subjective Date of service: 04/17/20 Interval history: Patient looks and feels much better, his edema is resolved, he is ambulating with no further cardiac complaints. He is in a sinus rhythm, and blood pressure is 93-97 systolic. He is on intravenous milrinone at 0.25 mcg/kg. Objective Vital Signs Temp Pulse Resp BP BP Pulse Ox 04/17/20 10:10 97 H 93/58 04/17/20 10:09 97 H 93/58 04/17/20 10:01 100 H 93/58 95 04/17/20 10:00 100 H 20 93/58 97 04/17/20 08:14 98.0 F 89 26 H 84/63 99 04/17/20 05:21 96 H 107/71 04/17/20 03:38 98.1 F 96 H 14 107/71 93 04/16/20 23:00 98.4 F 105 H 16 94/48 95 04/16/20 21:43 101 H 103/58 04/16/20 19:22 98.7 F 101 H 16 103/58 95 04/16/20 15:25 97.9 F 18 91/60 55 L - Physical Examination General: No Apparent Distress HEENT: Positive: PERRL Neck: Positive: neck supple, trachea midline Cardiac: Positive: Reg Rate and Rhythm Lungs: Positive: Decreased Breath Sounds Neuro: Positive: Grossly Intact Abdomen: Positive: Soft Skin: Positive: Clear Musculoskeletal: No Pain, Normal Range of Motion Extremities: Absent: edema
[2020-04-17] MEDS: ASPIRIN 81 MG TAB CHEW PO SCH (13:27)
[2020-04-17] MEDS: TAMSULOSIN 0.4 MG CAP PO SCH (22:40)
[2020-04-18] MEDS: FUROSEMIDE 40 MG/4 ML INJ IV SCH (05:33)
[2020-04-18] MEDS: NITROGLYCERIN 2% OINT 1 GM TP SCH (05:34)
--- NOTE | 2020-04-18 06:13 | Progress Note ---
Assessment and Plan 65-year-old -Wallisian male with a history of dilated cardiomyopathy with congestive heart failure as well as having a history of noncompliance of medication presenting with shortness of breath and dyspnea as well as pedal edema. -- Acute respiratory failure with hypoxia due to CHf exacerbation Patient was hypoxic initially at 86% on room air. Improved with oxygen supplementation. Patient to be diuresed to get the volume overload controlled -- Acute exacerbation of CHF (congestive heart failure) Acute on chronic congestive heart failure Last cath in 2017 showed ejection fraction of 15-20% Cardiology consult requested Daily weights and intake and output increase IV Lasix 60 mg every 12h Spironolactone once a day Started on milrinone drip -- Coronary artery disease Patient has moderate coronary artery disease.. ICD was recommended on the last cardiac cath of 12/25. Patient is noncompliant. Will defer to cardiology regarding ICD placement. -- Hypertension Continue antihypertensives and adjust medications as necessary -- Hyperlipidemia Continue statins in the form of Lipitor 40 mg once a day --BPH (benign prostatic hyperplasia) Continue Flomax -- GERD (gastroesophageal reflux disease) Patient on famotidine 20 mg twice a day -- Elevated troponin Cardiology consult requested CK and CK-MB also ordered Serial troponins ordered -- Generalized anxiety disorder Patient very anxious in the emergency room and hyperventilating now much improved s/p xanax as needed -- DVT prophylaxis On heparin and GI prophylaxis daily course; 04/13/20; cont iv lasix, ins/os, daily wt, follow clinically 04/14/20; patient with vtach on tele, will increase BB dose, order EKG 04/15/20: started on milrinone drip today, continue IV diuresis, follow ins and outs 04/16/20: cont milrinone drip, continue IV diuresis, follow ins and O's 04/17: remains on milrinone drip. family concern about patient's noncompliance which patient disagree. Patient wants to go back to his apartment following discharge. He doesnot want to go SNF or [facility]. Subjective Date of service: 04/17/20 Interval history: Patient seen and examined denies any chest pain, vitals noted SOB much improved Objective - Exam Narrative Exam: General appearance: Present: mild distress, well-nourished - EENT Eyes: Present: PERRL ENT: hearing intact, clear oral mucosa - Neck Neck: Present: supple, normal ROM - Respiratory Respiratory effort: normal Respiratory: bilateral: CTA, rales (Bilateral basilar rales) - Cardiovascular Heart rate: 110 Rhythm: regular Heart Sounds: Present: S1 & S2. Absent: rub, click - Extremities Extremities: no ischemia, pulses intact, pulses symmetrical, abnormal (3+ pedal edema and stasis dermatitis) Extremity abnormal: edema (3+ pedal edema and stasis dermatitis) Peripheral Pulses: within normal limits - Abdominal General gastrointestinal: Present: soft, non-tender, non-distended, normal bowel sounds Male genitourinary: Present: normal - Integumentary Integumentary: Present: clear, warm, dry - Musculoskeletal Musculoskeletal: gait normal, strength equal bilaterally - Psychiatric Psychiatric: appropriate mood/affect, intact judgment & insight - Neurologic Neurologic: CNII-XII intact, moves all extremities - Allied Health Allied health notes reviewed: nursing, case management - Constitutional Vitals: Vital Signs - 12hr 04/17/20 04/17/20 04/18/20 19:09 22:40 03:33 Temperature 98.8 F 98.0 F Pulse Rate 106 H 106 H 103 H Respiratory 16 17 Rate Blood Pressure 122/80 122/80 102/68 O2 Sat by Pulse 96 97 Oximetry 04/18/20 05:34 Temperature Pulse Rate 103 H Respiratory Rate Blood Pressure 102/68 O2 Sat by Pulse Oximetry - Labs CBC & Chem 7: 04/12/20 01:50 04/16/20 05:08 HEART Score - HEART Score Troponin: Troponin T 0.021 ng/mL (0.00-0.029) 04/14/20 15:59
[2020-04-18] MEDS: MILRINONE-D5W 20 MG/100 ML 20 MG/100 ML BAG IV SCH (06:27)
[2020-04-18 07:49] LABS: BUN/Creatinine Ratio 20; Blood Urea Nitrogen 26 mg/dL (9-20); Calcium 8.8 mg/dL (8.4-10.2); Hemolysis Index 1
[2020-04-18 09:33] VITALS: BP 106/44
[2020-04-18] MEDS: FAMOTIDINE 20 MG TAB PO SCH (09:37)
[2020-04-18] MEDS: ASPIRIN 81 MG TAB CHEW PO SCH (09:37)
[2020-04-18] MEDS: SPIRONOLACTONE 25 MG TAB PO SCH (09:37)
[2020-04-18] MEDS: carvediloL 3.125 MG TAB PO SCH (09:37)
--- NOTE | 2020-04-18 09:40 | Progress Note ---
Assessment and Plan - Patient Problems (1) Acute on chronic systolic (congestive) heart failure Current Visit: Yes Status: Acute Plan to address problem: Patient presented with acute on chronic systolic heart failure, has responded well to aggressive inpatient medical therapy including diuretics and intravenous milrinone. His lisinopril should be resumed at 2.5 mg daily, we will discontinue milrinone, and he is stable for cardiac discharge on current guideline directed medical therapy. Subjective Date of service: 04/18/20 Interval history: Patient looks and feels better, no cardiac complaints. He is looking forward to going home today. Objective Vital Signs Temp Pulse Resp BP BP Pulse Ox 04/18/20 09:33 89 18 106/44 98 04/18/20 07:50 97.9 F 49 L 16 101/46 98 04/18/20 05:34 103 H 102/68 04/18/20 03:33 98.0 F 103 H 17 102/68 97 04/17/20 22:40 106 H 122/80 04/17/20 22:00 112 H 04/17/20 19:09 98.8 F 106 H 16 122/80 96 04/17/20 15:21 98.0 F 50 L 16 106/64 95 04/17/20 13:28 56 L 98/55 04/17/20 13:00 100 H 04/17/20 12:16 97.9 F 56 L 16 98/55 100 04/17/20 10:10 97 H 93/58 04/17/20 10:09 97 H 93/58 04/17/20 10:01 100 H 93/58 95 04/17/20 10:00 100 H 20 93/58 97 - Physical Examination General: No Apparent Distress HEENT: Positive: PERRL Neck: Positive: neck supple, trachea midline Cardiac: Positive: Reg Rate and Rhythm Lungs: Positive: Decreased Breath Sounds Neuro: Positive: Grossly Intact Abdomen: Positive: Soft Skin: Positive: Clear Musculoskeletal: No Pain, Normal Range of Motion Extremities: Absent: edema - Labs and Meds Comprehensive Metabolic Panel 04/18/20 Range/Units 06:47 Sodium 134 L (137-145) mmol/L Potassium 4.3 (3.6-5.0) mmol/L Chloride 97.8 L (98-107) mmol/L Carbon Dioxide 28 (22-30) mmol/L BUN 26 H (9-20) mg/dL Creatinine 1.3 (0.8-1.3) mg/dL Glucose 117 H (75-100) mg/dL Calcium 8.8 (8.4-10.2) mg/dL
--- NOTE | 2020-04-18 09:43 | Discharge Summary ---
Providers - Providers Date of Admission: 04/12/20 05:29 Attending physician: SHADY VARELA MD 04/12/20 11:10 Consult to Physician [CONS] Routine Comment: Consulting Provider: HERLINDA BOYLE Physician Instructions: Reason For Exam: CHF exacerbation 04/14/20 11:26 Consult to Mental Health [CONS] Routine Reason For Exam: medical capacity Primary care physician: [employer] Hospitalization Reason for admission: chf Condition: Stable Hospital course: 65-year-old -Irish male with a history of dilated cardiomyopathy with congestive heart failure as well as having a history of noncompliance of medication presenting with shortness of breath and dyspnea as well as pedal edema. -- Acute respiratory failure with hypoxia due to CHf exacerbation Patient was hypoxic initially at 86% on room air. Improved with oxygen supplementation. Patient to be diuresed to get the volume overload controlled -- Acute exacerbation of CHF (congestive heart failure) Acute on chronic congestive heart failure Last cath in 2017 showed ejection fraction of 15-20% Cardiology consult requested Daily weights and intake and output increase IV Lasix 60 mg every 12h Spironolactone once a day Started on milrinone drip -- Coronary artery disease Patient has moderate coronary artery disease.. ICD was recommended on the last cardiac cath of 12/25. Patient is noncompliant. Will defer to cardiology regarding ICD placement. -- Hypertension Continue antihypertensives and adjust medications as necessary -- Hyperlipidemia Continue statins in the form of Lipitor 40 mg once a day --BPH (benign prostatic hyperplasia) Continue Flomax -- GERD (gastroesophageal reflux disease) Patient on famotidine 20 mg twice a day -- Elevated troponin Cardiology consult requested CK and CK-MB also ordered Serial troponins ordered -- Generalized anxiety disorder Patient very anxious in the emergency room and hyperventilating now much improved s/p xanax as needed -- DVT prophylaxis On heparin and GI prophylaxis daily course; 04/13/20; cont iv lasix, ins/os, daily wt, follow clinically 04/14/20; patient with vtach on tele, will increase BB dose, order EKG 04/15/20: started on milrinone drip today, continue IV diuresis, follow ins and outs 04/16/20: cont milrinone drip, continue IV diuresis, follow ins and O's 04/17: remains on milrinone drip. family concern about patient's noncompliance which patient disagree. Patient wants to go back to his apartment following discharge. He doesnot want to go SNF or [facility]. 04/18: Patient today much improved, cardiology discontinued milirone, counseling reinforced on diet and medication management will also follow-up with cardiology 15 minutes spent on this patient verbalized understanding. Disposition: DC-01 TO HOME OR SELFCARE Time spent for discharge: 35 mins Core Measure Documentation - Palliative Care Palliative Care/ Comfort Measures: Not Applicable - Core Measures Any of the following diagnoses?: heart failure - Heart Failure Discharge Requirements BETTY/ARB for LVSD if EF <40%: Yes Beta niels at discharge: Yes Exam - Physical Exam Narrative exam: - Exam Narrative Exam: General appearance: Present: No distress sitting up having breakfast, well- nourished - EENT Eyes: Present: PERRL ENT: hearing intact, clear oral mucosa - Neck Neck: Present: supple, normal ROM - Respiratory Respiratory effort: normal Respiratory: bilateral: CTA, rales (Bilateral basilar rales) - Cardiovascular Heart rate: 110 Rhythm: regular Heart Sounds: Present: S1 & S2. Absent: rub, click - Extremities Extremities: no ischemia, pulses intact, pulses symmetrical, abnormal (3+ pedal edema and stasis dermatitis) Extremity abnormal: edema (3+ pedal edema and stasis dermatitis) Peripheral Pulses: within normal limits - Abdominal General gastrointestinal: Present: soft, non-tender, non-distended, normal bowel sounds Male genitourinary: Present: normal - Integumentary Integumentary: Present: clear, warm, dry - Musculoskeletal Musculoskeletal: gait normal, strength equal bilaterally - Psychiatric Psychiatric: appropriate mood/affect, intact judgment & insight - Neurologic Neurologic: CNII-XII intact, moves all extremities - Allied Health Allied health notes reviewed: nursing, case management - Constitutional Vitals: Temp Pulse Resp BP Pulse Ox 97.9 F 89 18 106/44 98 04/18/20 07:50 04/18/20 09:33 04/18/20 09:33 04/18/20 09:33 04/18/20 09:33 Plan Activity: advance as tolerated, fall precautions Diet: low salt Special Instructions: restrict fluid intake to (1200cc/day), record daily weights Follow up with: RADHA CURRY MD [Primary Care Provider] - 7 Days HERLINDA BOYLE MD [Staff Physician] - 7 Days Prescriptions: Tamsulosin [Flomax] 0.4 mg PO QHS #30 capsule AtorvaSTATin [Lipitor] 40 mg PO QHS #30 tablet Spironolactone [Aldactone] 25 mg PO QDAY 30 Days #30 tablet Aspirin 325 mg PO QDAY 30 Days #30 tablet carvediloL [Coreg] 3.125 mg PO BID 30 Days #60 tablet Furosemide [Lasix TAB] 40 mg PO BID #60 tablet lisinopriL [Zestril TAB] 2.5 mg PO QDAY #30 tablet
[2020-04-18] MEDS ORDERED: ENOXAPARIN 40 MG/0.4 ML INJ SUB-Q SCH (22:00)
[2020-04-19] MEDS ORDERED: LISINOPRIL 5 MG TAB PO SCH (10:00)
== END 2020-04-18 11:33 | DRG 291 ==
LOC: ED 01:23 → 4A 05:29 → OBSVTOIN 05:29
PROVIDERS: ADMIT Internal Medicine Geriatric Medicine; ATTEND Internal Medicine
PROC: 5A09357 Assistance with Respiratory Ventilation, Less than 24 Consecutive Hours, Continuous Positive Airway Pressure (ICD-10-PCS; principal; 2020-04-14)
PROC: 5A09357 Assistance with Respiratory Ventilation, Less than 24 Consecutive Hours, Continuous Positive Airway Pressure (ICD-10-PCS; 2020-04-15)
DX: I11.0 Hypertensive heart disease with heart failure (principal); J96.01 Acute respiratory failure with hypoxia; I25.10 Atherosclerotic heart disease of native coronary artery without angina pectoris; I50.43 Acute on chronic combined systolic (congestive) and diastolic (congestive) heart failure; G43.909 Migraine, unspecified, not intractable, without status migrainosus; F41.1 Generalized anxiety disorder; K21.9 Gastro-esophageal reflux disease without esophagitis; N40.0 Benign prostatic hyperplasia without lower urinary tract symptoms; E78.5 Hyperlipidemia, unspecified; I42.9 Cardiomyopathy, unspecified; Z79.899 Other long term (current) drug therapy; Z91.14 Patient's other noncompliance with medication regimen; Z79.82 Long term (current) use of aspirin
CPT/HCPCS: 36415; 71045; 80048; 80053; 80061; 82962; 83735; 83880; 84443; 84484; 85025; 87116; 93005; 94660; 96365; 96366; 96375; G0378; A9270-GY; J1940; J2260; J2270; J2405